=== PATIENT | male | born 1965 | race Caucasian/White ===

== ENCOUNTER 2017-10-17 08:25 | Inpatient (IN) | payer MEDICARE ==
[2017-10-17] MEDS ORDERED: PIPERACILLIN/TAZOBACTAM 3.375 GM VIAL IV ONE (09:46)
[2017-10-17] MEDS ORDERED: VANCOMYCIN HCL INJ 1000 MG VIAL IV ONE (09:46)
[2017-10-17 10:34] LABS: ABSOLUTE BASOPHILS # (AUTO) 0.1 10^3/uL (0.0-0.2); ABSOLUTE LYMPHOCYTES (AUTO) 0.8 10^3/uL (0.5-4.7); ABSOLUTE MONOCYTES (AUTO) 0.7 10^3/uL (0.1-1.4); ABSOLUTE NEUT (AUTO) 6.5 10^3/uL (1.7-8.2); BASOPHILS % (AUTO) 0.7 % (0-2); EOSINOPHILS % (AUTO) 0.5 % (0-6); HEMATOCRIT 47.7 % (37.9-51.0); HEMOGLOBIN 16.4 g/dL (13.5-17.0); LYMPHOCYTES % (AUTO) 10.3 % (13-45); MEAN CORPUSCULAR HGB CONC 34.5 g/dL (32.0-36.0); MEAN CORPUSCULAR VOLUME 96 fl (80-97); MONOCYTES % (AUTO) 8.2 % (3-13); RED BLOOD COUNT 4.98 10^6/uL (4.35-5.55); RED CELL DISTRIBUTION WIDTH 14.2 % (11.5-14.0); SEGMENTED NEUTROPHILS % (AUTO) 80.3 % (42-78); TOTAL CELLS COUNTED % (AUTO) 100 %; WHITE BLOOD COUNT 8.1 10^3/uL (4.0-10.5)
--- NOTE | 2017-10-17 10:41 | ER Document Report ---
ED General - General Chief Complaint: Leg Pain Stated Complaint: POSSIBLE SPIDER BITE Time Seen by Provider: 10/17/17 08:49 Mode of Arrival: Ambulatory Information source: Patient Notes: 52-year-old male history of hepatitis presents with complaints of left leg pain redness over the past 2 days. Patient notes he was working outside is not sure if he was bit by something. Patient denies any fevers or chills he does not admit to a 20 pound weight gain and some shortness of breath as well with a history of chronic liver disease TRAVEL OUTSIDE OF THE [place] IN LAST 30 DAYS: No - HPI Onset: Other Onset/Duration: Persistent Quality of pain: Achy Severity: Mild Pain Level: 1 Associated symptoms: Leg swelling, Shortness of breath Exacerbated by: Walking Relieved by: Denies Similar symptoms previously: No Recently seen / treated by doctor: No - Related Data Allergies/Adverse Reactions: No Known Allergies Allergy (Verified 10/17/17 08:26) Past Medical History - Social History Smoking Status: Current Every Day Smoker Cigarette use (# per day): Yes Chew tobacco use (# tins/day): No Smoking Education Provided: No Frequency of alcohol use: None Drug Abuse: None Family History: Reviewed & Not Pertinent Patient has suicidal ideation: No Patient has homicidal ideation: No Renal/ Medical History: Denies: Hx Peritoneal Dialysis - Immunizations Hx Diphtheria, Pertussis, Tetanus Vaccination: Yes Review of Systems - Review of Systems Notes: REVIEW OF SYSTEMS: CONSTITUTIONAL : Denies fever, chills, or sweats. Denies recent illness. EENT: Denies eye, ear, throat, or mouth pain or symptoms. Denies nasal or sinus congestion or discharge. Denies throat, tongue, or mouth swelling or difficulty swallowing. CARDIOVASCULAR: Denies chest pain. Denies palpitations or racing or irregular heart beat. Denies ankle edema. RESPIRATORY: Shortness of breath GASTROINTESTINAL: Abdominal swelling GENITOURINARY: Denies difficulty urinating, painful urination, burning, frequency, blood in urine, or discharge. MUSCULOSKELETAL: Denies back or neck pain or stiffness. Denies joint pain or swelling. SKIN: Rash of left leg HEMATOLOGIC : Denies easy bruising or bleeding. LYMPHATIC: Denies swollen, enlarged glands. NEUROLOGICAL: Denies confusion or altered mental status. Denies passing out or loss of consciousness. Denies dizziness or lightheadedness. Denies headache. Denies weakness or paralysis or loss of use of either side. Denies problems with gait or speech. Denies sensory loss, numbness, or tingling. Denies seizures. PSYCHIATRIC: Denies anxiety or stress. Denies depression, suicidal ideation, or homicidal ideation. ALL OTHER SYSTEMS REVIEWED AND NEGATIVE. PHYSICAL EXAMINATION: GENERAL: Well-appearing, well-nourished and in no acute distress. HEAD: Atraumatic, normocephalic. EYES: Pupils equal round and reactive to light, extraocular movements intact, conjunctiva are normal. ENT: Nares patent, oropharynx clear without exudates. Moist mucous membranes. NECK: Normal range of motion, supple without lymphadenopathy LUNGS: Breath sounds clear to auscultation bilaterally and equal. No wheezes rales or rhonchi. HEART: Regular rate and rhythm without murmurs ABDOMEN: Abdomen is distended obvious fluid level Musculoskeletal: Normal range of motion, no pitting or edema. No cyanosis. NEUROLOGICAL: Cranial nerves grossly intact. Normal speech, normal gait. Normal sensory, motor exams PSYCH: Normal mood, normal affect. SKIN: Large area of cellulitic component mid ott to mid thigh chronic venous stasis changes of bilateral lower extremities Dictation was performed using [employer] voice recognition software Physical Exam - Vital signs Vitals: Temp Pulse Resp BP Pulse Ox 98.1 F 78 17 129/65 H 95 10/17/17 08:31 10/17/17 08:31 10/17/17 08:31 10/17/17 08:31 10/17/17 08:31 Course - Re-evaluation Re-evalutation: 10/17/17 15:31 Patient appears to have 2 separate concerns, the initial is for cellulitis, patient will be surrounding for this, the secondary concern is for fluid overload secondary to ascites and liver disease, patient will be set up for a paracentesis Patient will be admitted to hospital service - Vital Signs Vital signs: Temp Pulse Resp BP Pulse Ox 97.7 F 70 17 134/73 H 94 10/17/17 14:22 10/17/17 14:36 10/17/17 14:36 10/17/17 14:22 10/17/17 14:36 - Laboratory Result Diagrams: 10/17/17 10:12 10/17/17 10:12 Laboratory results interpreted by me: 10/17/17 10/17/17 10/17/17 10:12 10:12 10:12 RDW 14.2 H Plt Count 51 L Seg Neutrophils % 80.3 H Lymphocytes % 10.3 L PT 17.2 H Glucose 136 H Total Bilirubin 4.1 H Direct Bilirubin 1.4 H AST 152 H ALT 127 H Alkaline Phosphatase 191 H Albumin 2.9 L - Diagnostic Test Radiology reviewed: Image reviewed - Ascites noted, Reports reviewed Discharge - Discharge Clinical Impression: Cellulitis Qualifiers: Site of cellulitis: extremity Site of cellulitis of extremity: lower extremity Laterality: left Qualified Code(s): L03.116 - Cellulitis of left lower limb Ascites Qualifiers: Ascites type: due to alcoholic cirrhosis Qualified Code(s): K70.31 - Alcoholic cirrhosis of liver with ascites Condition: Stable Disposition: ADMITTED OBSERVATION Admitting Provider: Hospitalist Unit Admitted: Telemetry
[2017-10-17 10:49] LABS: ALANINE AMINOTRANSFERASE 127 U/L (21-72); ALBUMIN 2.9 g/dL (3.5-5.0); ALKALINE PHOSPHATASE 191 U/L (38-126); ANION GAP 8 (5-19); ASPARTATE AMINO TRANSFERASE 152 U/L (17-59); BILIRUBIN,DIRECT 1.4 mg/dL (0.0-0.4); BILIRUBIN,TOTAL 4.1 mg/dL (0.2-1.3); BLOOD UREA NITROGEN 15 mg/dL (7-20); CALCIUM 9.1 mg/dL (8.4-10.2); CARBON DIOXIDE 30 mmol/L (22-30); CHLORIDE 103 mmol/L (98-107); GLUCOSE 136 mg/dL (75-110); POTASSIUM 4.7 mmol/L (3.6-5.0); SODIUM 141.4 mmol/L (137-145); TOTAL PROTEIN 7.1 g/dL (6.3-8.2)
[2017-10-17 11:01] LABS: PLATELET COUNT 51 10^3/uL (150-450)
[2017-10-17 12:19] LABS: INTERNATIONAL RATION (INR) 1.34; PROTHROMBIN TIME 17.2 SEC (11.4-15.4)
[2017-10-17] MEDS ORDERED: ONDANSETRON HCL INJ/PF 4 MG/2 ML SDV IV PRN (12:23)
--- NOTE | 2017-10-17 14:05 | RADIOLOGY REPORT (SQ) ---
EXAM DESCRIPTION: U/S ABDOMEN LIMITED W/O DOP COMPLETED DATE/TIME: 10/17/2017 1:40 pm REASON FOR STUDY: abd distension D69.6 THROMBOCYTOPENIA, UNSPECIFIED COMPARISON: None. TECHNIQUE: Limited Static and real time solomon scale imaging performed of the 4 abdominal quadrants an d the midline. LIMITATIONS: None. FINDINGS: ASCITES: None identified. OTHER: No other significant finding. IMPRESSION: NO EVIDENCE FOR ASCITES. TECHNICAL DOCUMENTATION: JOB ID: [id number] [employer]- All Rights Reserved Reading location - IP/workstation name: Unknown
--- NOTE | 2017-10-17 14:51 | PDOC H&P ---
History of Present Illness Admission Date/PCP: 10/17/17 11:19 Patient complains of: Leg pain and swelling History of Present Illness: DONTAE RODRIGUEZ is a 52 year old male with history of hepatitis presents with complaints of left leg pain redness over the past 2 days. Patient notes he was working outside is not sure if he was bit by something. Patient denies any fevers or chills he does admit to a 20 pound weight gain and some shortness of breath as well with a history of chronic liver disease Past Medical History GI Medical History: Reports: Cirrhosis, Hepatitis Social History Information Source: Patient Smoking Status: Current Every Day Smoker Frequency of Alcohol Use: None - Advance Directive Resuscitation Status: Full Code Family History Family History: Reviewed & Not Pertinent Parental Family History Reviewed: Yes Children Family History Reviewed: Unknown Sibling(s) Family History Reviewed.: Unknown Medication/Allergy Home Medications: Furosemide [Lasix 20 mg Tablet] 60 mg PO DAILY 10/17/17 Lactulose [Cephulac Syrup 20 gm/30 ml Udcup] 30 ml PO DAILY 10/17/17 Methadone HCl 10 mg PO Q6HP PRN 10/17/17 Oxycodone HCl/Acetaminophen [Percocet 5-325 mg Tablet] 1 tab PO Q6HP PRN Spironolactone 150 tab PO DAILY 10/17/17 Allergies/Adverse Reactions: No Known Allergies Allergy (Verified 10/17/17 08:26) Review of Systems Constitutional: PRESENT: weight gain Eyes: ABSENT: visual disturbances Cardiovascular: ABSENT: chest pain, dyspnea on exertion, edema, orthropnea, palpitations Respiratory: ABSENT: cough, hemoptysis Gastrointestinal: PRESENT: abdominal pain. ABSENT: diarrhea, hematemesis, melena, nausea, vomiting Genitourinary: ABSENT: dysuria, hematuria Musculoskeletal: ABSENT: joint swelling Neurological: ABSENT: abnormal gait, abnormal speech, confusion, dizziness, focal weakness, syncope Psychiatric: PRESENT: as per HPI Physical Exam Vital Signs: Temp Pulse Resp BP Pulse Ox 97.7 F 70 17 134/73 H 94 10/17/17 14:22 10/17/17 14:36 10/17/17 14:36 10/17/17 14:22 10/17/17 14:36 Intake & Output 10/16/17 10/17/17 10/18/17 06:59 06:59 06:59 Weight 108.862 kg General appearance: PRESENT: no acute distress, cooperative Head exam: PRESENT: atraumatic Ear exam: PRESENT: normal external ear exam Neck exam: ABSENT: carotid bruit, JVD, lymphadenopathy, thyromegaly Respiratory exam: PRESENT: clear to auscultation rober. ABSENT: rales, rhonchi, wheezes Pulses: PRESENT: normal dorsalis pedis pul GI/Abdominal exam: PRESENT: ascites, normal bowel sounds, tenderness, other Rectal exam: PRESENT: deferred Extremities exam: PRESENT: tenderness, +1 edema Musculoskeletal exam: PRESENT: ambulatory Neurological exam: PRESENT: alert, awake, oriented to person, oriented to place , oriented to time, oriented to situation Skin exam: PRESENT: rash - Left lower extremity extending to left hip Results Laboratory Results: Laboratory 10/17/17 10/17/17 10/17/17 10:12 10:12 10:12 WBC 8.1 RBC 4.98 Hgb 16.4 Hct 47.7 MCV 96 MCH 33.0 MCHC 34.5 RDW 14.2 H Plt Count 51 L Seg Neutrophils % 80.3 H Lymphocytes % 10.3 L Monocytes % 8.2 Eosinophils % 0.5 Basophils % 0.7 Absolute Neutrophils 6.5 Absolute Lymphocytes 0.8 Absolute Monocytes 0.7 Absolute Eosinophils 0.0 Absolute Basophils 0.1 PT INR Sodium 141.4 Potassium 4.7 Chloride 103 Carbon Dioxide 30 Anion Gap 8 BUN 15 Creatinine 0.73 Est GFR ( Amer) > 60 Est GFR (Non-Af Amer) > 60 Glucose 136 H Calcium 9.1 Total Bilirubin 4.1 H Direct Bilirubin 1.4 H Neonat Total Bilirubin Not Reportable Neonat Direct Bilirubin Not Reportable Neonat Indirect Bili Not Reportable AST 152 H ALT 127 H Alkaline Phosphatase 191 H NT-Pro-B Natriuret Pep 64 Total Protein 7.1 Albumin 2.9 L 10/17/17 10:12 WBC RBC Hgb Hct MCV MCH MCHC RDW Plt Count Seg Neutrophils % Lymphocytes % Monocytes % Eosinophils % Basophils % Absolute Neutrophils Absolute Lymphocytes Absolute Monocytes Absolute Eosinophils Absolute Basophils PT 17.2 H INR 1.34 Sodium Potassium Chloride Carbon Dioxide Anion Gap BUN Creatinine Est GFR ( Amer) Est GFR (Non-Af Amer) Glucose Calcium Total Bilirubin Direct Bilirubin Neonat Total Bilirubin Neonat Direct Bilirubin Neonat Indirect Bili AST ALT Alkaline Phosphatase NT-Pro-B Natriuret Pep Total Protein Albumin Impressions: Abdomen Ultrasound 10/17/17 11:58 IMPRESSION: NO EVIDENCE FOR ASCITES. Assessment & Plan - Diagnosis (1) Cellulitis Qualifiers: Site of cellulitis: extremity Site of cellulitis of extremity: lower extremity Laterality: left Qualified Code(s): L03.116 - Cellulitis of left lower limb Plan: Placed on empiric antibiotics. Will obtain Doppler sonogram to rule out underlying DVT. Patient has a rash overlying this area of cellulitis and I am not too sure what the etiology is but will keep a close eye on it and adjust antibiotics as needed. (2) Cirrhosis of liver Qualifiers: Ascites presence: without ascites Is this a current diagnosis for this admission?: Yes Plan: Patient claims to have a shunt in place and c/o increased abdominal swelling however abdominal sono shows no ascites and no mention of any hardware. His labs do support liver disease with thrombocytopenia and abnormal LFT's. He says he just moved to the area and has not seen a physician in about 2 years as he had been doing well - Time Time Spent: 50 to 70 Minutes Medications reviewed and adjusted accordingly: Yes Anticipated discharge: Home Within: within 72 hours - Inpatient Certification Based on my medical assessment, after consideration of the patient's comorbidities, presenting symptoms, or acuity I expect that the services needed warrant INPATIENT care.: Yes Medical Necessity: Need for IV Antibiotics, Risk of Complication if Not Cared For in Hospital
[2017-10-17] MEDS: ERTAPENEM SODIUM 1 GM in NORMAL SALINE 50 ML IV SCH (17:10)
[2017-10-17] MEDS: OXYCODONE-ACETAMINOPHEN 5-325 MG TABLET PO PRN ×2 (17:12→23:07)
[2017-10-17] MEDS: METHADONE HCL 10 MG TABLET PO PRN ×2 (17:12→23:07)
[2017-10-17] MEDS: FAMOTIDINE 20 MG TABLET PO SCH (23:06)
[2017-10-18] MEDS: OXYCODONE-ACETAMINOPHEN 5-325 MG TABLET PO PRN ×3 (06:02→18:09)
[2017-10-18] MEDS: METHADONE HCL 10 MG TABLET PO PRN ×3 (06:02→18:09)
[2017-10-18 06:22] LABS: ABSOLUTE BASOPHILS # (AUTO) 0.1 10^3/uL (0.0-0.2); ABSOLUTE EOSINOPHILS # (AUTO) 0.2 10^3/uL (0.0-0.6); ABSOLUTE MONOCYTES (AUTO) 0.5 10^3/uL (0.1-1.4); ABSOLUTE NEUT (AUTO) 2.6 10^3/uL (1.7-8.2); BASOPHILS % (AUTO) 1.2 % (0-2); EOSINOPHILS % (AUTO) 4.7 % (0-6); HEMATOCRIT 43.9 % (37.9-51.0); HEMOGLOBIN 14.9 g/dL (13.5-17.0); LYMPHOCYTES % (AUTO) 24.1 % (13-45); MEAN CORPUSCULAR HEMOGLOBIN 32.7 pg (27.0-33.4); MEAN CORPUSCULAR HGB CONC 33.9 g/dL (32.0-36.0); MEAN CORPUSCULAR VOLUME 97 fl (80-97); MONOCYTES % (AUTO) 10.9 % (3-13); RED BLOOD COUNT 4.55 10^6/uL (4.35-5.55); RED CELL DISTRIBUTION WIDTH 14.2 % (11.5-14.0); SEGMENTED NEUTROPHILS % (AUTO) 59.1 % (42-78); TOTAL CELLS COUNTED % (AUTO) 100 %; WHITE BLOOD COUNT 4.3 10^3/uL (4.0-10.5)
[2017-10-18 06:39] LABS: ALANINE AMINOTRANSFERASE 106 U/L (21-72); ALBUMIN 2.4 g/dL (3.5-5.0); ALKALINE PHOSPHATASE 186 U/L (38-126); ANION GAP 6 (5-19); ASPARTATE AMINO TRANSFERASE 125 U/L (17-59); BILIRUBIN,TOTAL 1.8 mg/dL (0.2-1.3); BLOOD UREA NITROGEN 18 mg/dL (7-20); CALCIUM 8.4 mg/dL (8.4-10.2); CARBON DIOXIDE 28 mmol/L (22-30); CHLORIDE 107 mmol/L (98-107); GLUCOSE 162 mg/dL (75-110); PHOSPHORUS 3.8 mg/dL (2.5-4.5); POTASSIUM 4.1 mmol/L (3.6-5.0); SODIUM 141.4 mmol/L (137-145)
[2017-10-18 07:11] LABS: PLATELET COUNT 41 10^3/uL (150-450)
[2017-10-18] MEDS: SPIRONOLACTONE 25 MG TABLET PO SCH (09:59)
[2017-10-18] MEDS: FAMOTIDINE 20 MG TABLET PO SCH ×2 (09:59→21:34)
[2017-10-18] MEDS: FUROSEMIDE 20 MG TABLET PO SCH (09:59)
[2017-10-18] MEDS ORDERED: SPIRONOLACTONE PO SCH (10:00)
[2017-10-18] MEDS ORDERED: LACTULOSE SYRUP 20 GM/30 ML UDCUP PO SCH (10:00)
[2017-10-18] MEDS: DOCUSATE SODIUM 100 MG CAPSULE PO SCH (10:01)
[2017-10-18] MEDS: IPRATROPIUM/ALBUTEROL 0.5-2.5 MG/3 ML AMPUL NEB PRN (13:07)
--- NOTE | 2017-10-18 16:03 | PDOC PROGRESS REPORT ---
Subjective Progress Note for:: 10/18/17 Subjective:: Patient admitted with left leg pain and swelling likely secondary to cellulitis. He reports feeling better today. He denies any bleeding. Reason For Visit: CELLULITIS, LIVER CIRRHOSIS Physical Exam Vital Signs: Temp Pulse Resp BP Pulse Ox 97.8 F 67 16 124/56 L 91 L 10/18/17 11:27 10/18/17 13:07 10/18/17 13:07 10/18/17 11:27 10/18/17 13:07 Intake & Output 10/17/17 10/18/17 10/19/17 06:59 06:59 06:59 Intake Total 775 300 Balance 775 300 Weight 118.3 kg General appearance: PRESENT: no acute distress, other - Older looking than stated age Head exam: PRESENT: atraumatic Eye exam: PRESENT: conjunctiva pink, PERRLA. ABSENT: scleral icterus Ear exam: PRESENT: normal external ear exam Mouth exam: PRESENT: moist, tongue midline Neck exam: ABSENT: carotid bruit, JVD, lymphadenopathy, thyromegaly Respiratory exam: PRESENT: clear to auscultation rober. ABSENT: rales, rhonchi, wheezes Cardiovascular exam: PRESENT: RRR. ABSENT: diastolic murmur, rubs, systolic murmur Pulses: PRESENT: normal dorsalis pedis pul Vascular exam: PRESENT: normal capillary refill GI/Abdominal exam: PRESENT: ascites, normal bowel sounds, soft, other - umblical hernia. ABSENT: distended, mass, organolmegaly, rebound, tenderness Rectal exam: PRESENT: deferred Extremities exam: PRESENT: full ROM. ABSENT: calf tenderness, clubbing, pedal edema Neurological exam: PRESENT: alert, awake, oriented to person, oriented to place , oriented to time, oriented to situation, CN II-XII grossly intact. ABSENT: motor sensory deficit Psychiatric exam: PRESENT: appropriate affect, normal mood. ABSENT: homicidal ideation, suicidal ideation Skin exam: PRESENT: dry, intact, warm. ABSENT: cyanosis, rash Results Laboratory Results: 10/18/17 06:03 10/18/17 06:03 10/18/17 10/18/17 10/18/17 06:03 06:03 06:03 WBC 4.3 RBC 4.55 Hgb 14.9 Hct 43.9 MCV 97 MCH 32.7 MCHC 33.9 RDW 14.2 H Plt Count 41 L Seg Neutrophils % 59.1 Lymphocytes % 24.1 Monocytes % 10.9 Eosinophils % 4.7 Basophils % 1.2 Absolute Neutrophils 2.6 Absolute Lymphocytes 1.0 Absolute Monocytes 0.5 Absolute Eosinophils 0.2 Absolute Basophils 0.1 Sodium 141.4 Potassium 4.1 Chloride 107 Carbon Dioxide 28 Anion Gap 6 BUN 18 Creatinine 0.69 Est GFR ( Amer) > 60 Est GFR (Non-Af Amer) > 60 Glucose 162 H Calcium 8.4 Phosphorus 3.8 Magnesium 1.8 Total Bilirubin 1.8 H AST 125 H ALT 106 H Alkaline Phosphatase 186 H Ammonia 91.9 H Total Protein 6.0 L Albumin 2.4 L Impressions: Abdomen Ultrasound 10/17/17 11:58 IMPRESSION: NO EVIDENCE FOR ASCITES. Assessment & Plan - Diagnosis (1) Cellulitis Qualifiers: Site of cellulitis: extremity Site of cellulitis of extremity: lower extremity Laterality: left Qualified Code(s): L03.116 - Cellulitis of left lower limb Is this a current diagnosis for this admission?: Yes Plan: We will continue with Etrapenem and adjust as needed. He does appear to be improved since yesterday (2) Cirrhosis of liver Qualifiers: Ascites presence: without ascites Is this a current diagnosis for this admission?: Yes Plan: There was no ascites on sonogram so no paracentesis was done (3) Thrombocytopenia Is this a current diagnosis for this admission?: Yes Plan: Secondary to liver disease. There is no evidence of any bleeding. We will continue to monitor - Time Time Spent with patient: 15-24 minutes Medications reviewed and adjusted accordingly: Yes Anticipated discharge: Home Within: within 72 hours - Inpatient Certification Based on my medical assessment, after consideration of the patient's comorbidities, presenting symptoms, or acuity I expect that the services needed warrant INPATIENT care.: Yes Medical Necessity: Need for IV Antibiotics, Risk of Diagnosis Which Will Require Inpatient Eval/Care/Monitoring
[2017-10-18] MEDS: ERTAPENEM SODIUM 1 GM in NORMAL SALINE 50 ML IV SCH (18:09)
[2017-10-19] MEDS: OXYCODONE-ACETAMINOPHEN 5-325 MG TABLET PO PRN ×4 (00:47→21:31)
[2017-10-19] MEDS: METHADONE HCL 10 MG TABLET PO PRN ×4 (00:47→21:31)
[2017-10-19] MEDS: IPRATROPIUM/ALBUTEROL 0.5-2.5 MG/3 ML AMPUL NEB PRN ×2 (07:52→18:07)
[2017-10-19] MEDS: FAMOTIDINE 20 MG TABLET PO SCH ×2 (09:51→21:31)
[2017-10-19] MEDS: FUROSEMIDE 20 MG TABLET PO SCH (09:52)
[2017-10-19] MEDS: DOCUSATE SODIUM 100 MG CAPSULE PO SCH (09:53)
[2017-10-19] MEDS: SPIRONOLACTONE 25 MG TABLET PO SCH (10:17)
[2017-10-19] MEDS: LACTULOSE SYRUP 20 GM/30 ML UDCUP PO SCH ×2 (13:20→21:32)
--- NOTE | 2017-10-19 16:15 | PDOC PROGRESS REPORT ---
Subjective Progress Note for:: 10/19/17 Subjective:: Patient admitted with left leg pain and swelling likely secondary to cellulitis. He reports feeling better today. He denies any bleeding. Reason For Visit: CELLULITIS, LIVER CIRRHOSIS Physical Exam Vital Signs: Temp Pulse Resp BP Pulse Ox 98.2 F 86 18 124/53 L 96 10/19/17 12:00 10/19/17 12:00 10/19/17 12:00 10/19/17 12:00 10/19/17 12:00 Intake & Output 10/18/17 10/19/17 10/20/17 06:59 06:59 06:59 Intake Total 775 682 Balance 775 682 Weight 118.3 kg General appearance: PRESENT: no acute distress, well-developed, well-nourished Head exam: PRESENT: atraumatic, normocephalic Eye exam: PRESENT: conjunctiva pink, PERRLA. ABSENT: scleral icterus Ear exam: PRESENT: normal external ear exam Mouth exam: PRESENT: moist, tongue midline Neck exam: ABSENT: carotid bruit, JVD, lymphadenopathy, thyromegaly Respiratory exam: PRESENT: clear to auscultation rober. ABSENT: rales, rhonchi, wheezes Cardiovascular exam: PRESENT: RRR. ABSENT: diastolic murmur, rubs, systolic murmur Pulses: PRESENT: normal dorsalis pedis pul Vascular exam: PRESENT: normal capillary refill GI/Abdominal exam: PRESENT: normal bowel sounds, soft. ABSENT: distended, guarding, mass, organolmegaly, rebound, tenderness Rectal exam: PRESENT: deferred Extremities exam: PRESENT: full ROM. ABSENT: calf tenderness, clubbing, pedal edema Musculoskeletal exam: PRESENT: ambulatory, deformity Neurological exam: PRESENT: alert, awake, oriented to person, oriented to place , oriented to time, oriented to situation, CN II-XII grossly intact. ABSENT: motor sensory deficit Psychiatric exam: PRESENT: appropriate affect, normal mood. ABSENT: homicidal ideation, suicidal ideation Skin exam: PRESENT: dry, erythema - resolving LLE, intact, rash, warm. ABSENT: cyanosis Results Laboratory Results: 10/18/17 06:03 10/18/17 06:03 Impressions: Abdomen Ultrasound 10/17/17 11:58 IMPRESSION: NO EVIDENCE FOR ASCITES. Assessment & Plan - Diagnosis (1) Cellulitis Qualifiers: Site of cellulitis: extremity Site of cellulitis of extremity: lower extremity Laterality: left Qualified Code(s): L03.116 - Cellulitis of left lower limb Is this a current diagnosis for this admission?: Yes Plan: We will continue with Etrapenem and adjust as needed. Cellulitis improving (2) Cirrhosis of liver Qualifiers: Ascites presence: without ascites Is this a current diagnosis for this admission?: Yes Plan: There was no ascites on sonogram so no paracentesis was done Ammonia level elevated so I have increased his lactulose dose however there is no altered mental status or encephalopathy noted (3) Thrombocytopenia Is this a current diagnosis for this admission?: Yes Plan: Secondary to liver disease. There is no evidence of any bleeding. Follow up labs in am - Time Time Spent with patient: 15-24 minutes Medications reviewed and adjusted accordingly: Yes Anticipated discharge: Home Within: within 48 hours - Inpatient Certification Based on my medical assessment, after consideration of the patient's comorbidities, presenting symptoms, or acuity I expect that the services needed warrant INPATIENT care.: Yes Medical Necessity: Need Close Monitoring Due to Risk of Patient Decompensation, Need for IV Antibiotics, Risk of Complication if Not Cared For in Hospital
--- NOTE | 2017-10-19 17:12 | XCELERA REPORT ---
[address] [address] Lower Extremity Venous Evaluation Name: DONTAE RODRIGUEZ Age: 52 yrs Gender: Male : 1965 Patient Status: Inpatient Patient Location: [address] [place] [address] Study Date: 10/18/2017 07:10 PM Procedure: Color flow and duplex imaging of the veins of the left lower extremity as well as the right Common Femoral vein. Reason For Study: LLE edema, redness Ordering Physician: SANDY SOW Performed By: Tuyet Valverde Right Sided Venous Evaluation The right common femoral vein is fully compressible. Spontaneous and phasic flow is present in the right common femoral vein. Left Sided Venous Evaluation Normal vessel filling wall to wall, compression and augmentation as well as Colour flow down to the infrageniculate veins. Interpretation Summary No duplex evidence of DVT or obstruction in the left lower extremity nor in the right Common Femoral vein. : SANDY SOW > Remy Priest
[2017-10-19] MEDS: ERTAPENEM SODIUM 1 GM in NORMAL SALINE 50 ML IV SCH (17:36)
[2017-10-20] MEDS: OXYCODONE-ACETAMINOPHEN 5-325 MG TABLET PO PRN ×2 (05:50→12:03)
[2017-10-20] MEDS: METHADONE HCL 10 MG TABLET PO PRN ×2 (05:50→12:03)
[2017-10-20] MEDS: LACTULOSE SYRUP 20 GM/30 ML UDCUP PO SCH (05:51)
[2017-10-20 07:28] LABS: ALANINE AMINOTRANSFERASE 131 U/L (21-72); ALBUMIN 2.8 g/dL (3.5-5.0); ALKALINE PHOSPHATASE 287 U/L (38-126); ANION GAP 10 (5-19); ASPARTATE AMINO TRANSFERASE 181 U/L (17-59); BILIRUBIN,DIRECT 0.9 mg/dL (0.0-0.4); BILIRUBIN,TOTAL 2.2 mg/dL (0.2-1.3); BLOOD UREA NITROGEN 15 mg/dL (7-20); CALCIUM 8.5 mg/dL (8.4-10.2); CARBON DIOXIDE 31 mmol/L (22-30); CHLORIDE 99 mmol/L (98-107); GLUCOSE 138 mg/dL (75-110); HEMATOCRIT 46.1 % (37.9-51.0); HEMOGLOBIN 15.8 g/dL (13.5-17.0); MEAN CORPUSCULAR HEMOGLOBIN 32.8 pg (27.0-33.4); MEAN CORPUSCULAR HGB CONC 34.3 g/dL (32.0-36.0); MEAN CORPUSCULAR VOLUME 96 fl (80-97); POTASSIUM 4.1 mmol/L (3.6-5.0); RED BLOOD COUNT 4.81 10^6/uL (4.35-5.55); RED CELL DISTRIBUTION WIDTH 14.3 % (11.5-14.0); SODIUM 140.1 mmol/L (137-145); TOTAL PROTEIN 6.7 g/dL (6.3-8.2); WHITE BLOOD COUNT 4.7 10^3/uL (4.0-10.5)
[2017-10-20 08:01] LABS: PLATELET COUNT 49 10^3/uL (150-450)
[2017-10-20] MEDS: SPIRONOLACTONE 25 MG TABLET PO SCH (09:30)
[2017-10-20] MEDS: FUROSEMIDE 20 MG TABLET PO SCH (09:32)
[2017-10-20] MEDS: FAMOTIDINE 20 MG TABLET PO SCH (09:32)
[2017-10-20] MEDS: IPRATROPIUM/ALBUTEROL 0.5-2.5 MG/3 ML AMPUL NEB PRN (10:25)
[2017-10-20] MEDS ORDERED: ONDANSETRON HCL INJ/PF 4 MG/2 ML SDV IV PRN (10:30)
[2017-10-20] MEDS: DOCUSATE SODIUM 100 MG CAPSULE PO SCH (12:04)
--- NOTE | 2017-10-20 12:26 | PDOC DISCHARGE SUMMARY ---
General - Admit/Disc Date/PCP Admission Date/Primary Care Provider: 10/17/17 11:19 Discharge Date: 10/20/17 - Discharge Diagnosis (1) Cellulitis Is this a current diagnosis for this admission?: Yes Summary: Improved with IV invanz for 3 days. Will start on oral antibiotics for a total of 10 days (2) Ascites Is this a current diagnosis for this admission?: Yes Summary: Small amount of ascites noted on CT scan. He will follow-up with his development architect as scheduled (3) Cirrhosis of liver Is this a current diagnosis for this admission?: Yes Summary: Continue home medications (4) Thrombocytopenia Is this a current diagnosis for this admission?: Yes Summary: Presently stable - Additional Information Resuscitation Status: Full Code Discharge Diet: Regular Discharge Activity: Activity As Tolerated, Balance Activity w/Rest, Keep Legs Elevated Prescriptions: Cephalexin Monohydrate [Keflex 500 mg Capsule] 500 mg PO QID #28 capsule Sulfamethoxazole/Trimethoprim [Bactrim Ds Tablet] 1 each PO BID #14 tablet Home Medications: Furosemide [Lasix 20 mg Tablet] 60 mg PO DAILY 10/17/17 Lactulose [Cephulac Syrup 20 gm/30 ml Udcup] 30 ml PO DAILY 10/17/17 Methadone HCl 10 mg PO Q6HP PRN 10/17/17 Oxycodone HCl/Acetaminophen [Percocet 5-325 mg Tablet] 1 tab PO Q6HP PRN Spironolactone 150 tab PO DAILY 10/17/17 Cephalexin Monohydrate [Keflex 500 mg Capsule] 500 mg PO QID #28 capsule Sulfamethoxazole/Trimethoprim [Bactrim Ds Tablet] 1 each PO BID #14 tablet 10/20 History of Present Illness Patient complains of: Left leg redness and swelling History of Present Illness: DONTAE RODRIGUEZ is a 52 year old maleTHOMAS with history of hepatitis presents with complaints of left leg pain redness over the past 2 days. Patient notes he was working outside is not sure if he was bit by something. Patient denies any fevers or chills he does admit to a 20 pound weight gain and some shortness of breath as well with a history of chronic liver disease Hospital Course Hospital Course: Patient was admitted to the hospitalist service on telemetry. He was started on IV Invanz after blood cultures 2 were started. He underwent venous duplex of both lower extremities which were negative for DVT. Abdominal ultrasound and CT showed chronic liver disease with small amount of ascites. He was aggressively diuresed with IV Lasix. Today he states his breathing is much improved. Redness of his leg is also resolving. He has a normal white count and no fever. Blood cultures 2 are negative. We will transition him to oral antibiotics and discharge him home. Physical Exam Vital Signs: Temp Pulse Resp BP Pulse Ox 98.8 F 81 19 119/53 L 91 L 10/20/17 11:19 10/20/17 11:19 10/20/17 11:19 10/20/17 11:19 10/20/17 11:19 Intake & Output 10/19/17 10/20/17 10/21/17 06:59 06:59 06:59 Intake Total 682 1588 Balance 682 1588 Weight 113.5 kg General appearance: PRESENT: no acute distress, obese, well-developed, well- nourished Head exam: PRESENT: atraumatic, normocephalic Eye exam: PRESENT: conjunctiva pink, EOMI, PERRLA. ABSENT: scleral icterus Ear exam: PRESENT: normal external ear exam Mouth exam: PRESENT: moist, tongue midline Neck exam: ABSENT: carotid bruit, JVD, lymphadenopathy, thyromegaly Respiratory exam: PRESENT: clear to auscultation rober. ABSENT: rales, rhonchi, wheezes Cardiovascular exam: PRESENT: RRR. ABSENT: diastolic murmur, rubs, systolic murmur Pulses: PRESENT: normal dorsalis pedis pul Vascular exam: PRESENT: normal capillary refill GI/Abdominal exam: PRESENT: normal bowel sounds, soft. ABSENT: distended, guarding, mass, organolmegaly, rebound, tenderness Rectal exam: PRESENT: deferred Extremities exam: PRESENT: full ROM. ABSENT: calf tenderness, clubbing, pedal edema Musculoskeletal exam: PRESENT: ambulatory, full ROM Neurological exam: PRESENT: alert, awake, oriented to person, oriented to place , oriented to time, oriented to situation, CN II-XII grossly intact. ABSENT: motor sensory deficit Skin exam: PRESENT: dry - Area of erythema along the left he has been marked. It is much decreased from admission. It is no longer warm to the touch., erythema, warm Results Laboratory Results: 10/20/17 06:50 10/20/17 06:50 10/20/17 10/20/17 10/20/17 06:50 06:50 06:50 WBC 4.7 RBC 4.81 Hgb 15.8 Hct 46.1 MCV 96 MCH 32.8 MCHC 34.3 RDW 14.3 H Plt Count 49 L Sodium 140.1 Potassium 4.1 Chloride 99 Carbon Dioxide 31 H Anion Gap 10 BUN 15 Creatinine 0.73 Est GFR ( Amer) > 60 Est GFR (Non-Af Amer) > 60 Glucose 138 H Calcium 8.5 Total Bilirubin 2.2 H AST 181 H ALT 131 H Alkaline Phosphatase 287 H Ammonia 71.3 H Total Protein 6.7 Albumin 2.8 L Impressions: Abdomen Ultrasound 10/17/17 11:58 IMPRESSION: NO EVIDENCE FOR ASCITES. Qualifiers - * PATIENT BEING DISCHARGED WITH ANY OF THE FOLLOWING DIAGNOSIS: No VTE patient discharged on overlapping Therapy?: Yes Plan Discharge Plan: Home with family Time Spent: Less than 30 Minutes
[2017-10-20 14:42] VITALS: BP 135/60
== END 2017-10-20 15:10 | disposition home or self-care (01) | DRG 603 ==
LOC: ER 08:25 → EH 11:19 → OBSVTOIN 11:19 → 4S 13:59 → 4W 10-20 08:07
PROVIDERS: ADMIT Internal Medicine; ATTEND Internal Medicine
PROC: 3E0F73Z Introduction of Anti-inflammatory into Respiratory Tract, Via Natural or Artificial Opening (ICD-10-PCS; principal; 2017-10-17)
DX: L03.116 Cellulitis of left lower limb (principal); I87.8 Other specified disorders of veins; K74.60 Unspecified cirrhosis of liver; F17.210 Nicotine dependence, cigarettes, uncomplicated; D69.59 Other secondary thrombocytopenia; Z79.899 Other long term (current) drug therapy
CPT/HCPCS: 36415; 76705; 80053; 82140; 83735; 83880; 84100; 85025; 85027; 85610; 87040; 93971; 96365; 96366; 96367; 99285; J1335; J2405; J2543; J3370; J7620

== ENCOUNTER 2018-04-18 10:01 | Emergency (ER) | payer MEDICARE ==
[2018-04-18] MEDS ORDERED: DIPH/PERTUSS(ACELL)/TETANUS VAC/PF 0.5 ML SYR (>=10YO) IM ONE (10:28)
--- NOTE | 2018-04-18 10:39 | ER Document Report ---
HPI - HPI Patient complains to provider of: fall Pain Level: 4 Context: Patient is a 52-year-old male who states 2 days ago he fell 10 feet from a ladder onto grass while hanging Amanda lights. States he initially presented to the emergency room but the wait was too long so he left. States he was feeling better until this morning when the swelling in his left hand increased. Patient states when he fell 2 days ago he did not pass out nor did he vomit. Patient has a significant history of spine surgeries. States he always has a minimal amount of pain in his back which he takes Percocet and methadone for. States no new pain in his head neck or back. Patient also has abrasion to the left face. Stated 2 days ago he did have an epistaxis which he was able to stop within 10 minutes. Past medical history: Fused spine cervical and lumbar, right hip replacement, hepatitis C Medications: Percocet, methadone Allergies: None Patient admits to cigarette smoking, denies EtOH use, denies illicit drug use. Past Medical History - General Information source: Patient - Social History Smoking Status: Current Every Day Smoker Lives with: Family Family History: Reviewed & Not Pertinent Renal/ Medical History: Denies: Hx Peritoneal Dialysis GI Medical History: Reports: Hx Cirrhosis, Hx Hepatitis Infectious Medical History: Reports: Hx Hepatitis - Immunizations Hx Diphtheria, Pertussis, Tetanus Vaccination: Yes Vertical Provider Document - CONSTITUTIONAL Agree With Documented VS: Yes Notes: GENERAL: Alert, interacts well. No acute distress. HEAD: Normocephalic, multiple abrasions noted under left cheek to left forehead , bridge of nose, no surrounding cellulitic tissue, no fluctuance or induration noted. EYES: Pupils equal, round, and reactive to light. Extraocular movements intact. ENT: Oral mucosa moist, tongue midline. Nares patent, no nasal septal hematoma, TM's intact, no hemotympanum NECK: Full range of motion. Supple. Trachea midline. LUNGS: Clear to auscultation bilaterally, no wheezes, rales, or rhonchi. No respiratory distress. HEART: Regular rate and rhythm. No murmur ABDOMEN: Soft, non-tender. Non-distended. Bowel sounds present in all 4 quadrants. EXTREMITIES: Moves all 4 extremities spontaneously. normal radial and dorsalis pedis pulses bilaterally. No cyanosis. Ecchymosis and swelling noted to left pinky anterior and posterior. Generalized swelling noted to entire left hand with ecchymosis noted on the palmar aspect near the pinky. Patient able to abduct and adduct all 5 fingers against resistance. Radial, ulnar, medial nerves intact. Capillary refill less than 2 seconds. BACK: no cervical, thoracic, lumbar midline tenderness. Stated he took his Percocet and methadone this morning. No saddle anesthesia, normal distal neurovascular exam. NEUROLOGICAL: Alert and oriented x3. Normal speech. cranial nerves II through XII grossly intact PSYCH: Normal affect, normal mood. SKIN: Warm, dry, normal turgor. - INFECTION CONTROL TRAVEL OUTSIDE OF THE [place] IN LAST 30 DAYS: No Course - Re-evaluation Re-evalutation: 04/18/18 11:58 X-ray reveals fracture, will apply ulnar gutter. Discussed need to follow-up with orthopedics. Also discussed applying bacitracin to facial abrasions. - Vital Signs Vital signs: Temp Pulse Resp BP Pulse Ox 97.9 F 73 18 150/46 H 94 04/18/18 10:10 04/18/18 10:10 04/18/18 10:10 04/18/18 10:10 04/18/18 10:10 Discharge - Discharge Clinical Impression: Fall Qualifiers: Encounter type: initial encounter Qualified Code(s): W19.XXXA - Unspecified fall, initial encounter Abrasion head Qualifiers: Encounter type: initial encounter Qualified Code(s): S00.91XA - Abrasion of unspecified part of head, initial encounter Fracture, finger Qualifiers: Encounter type: subsequent encounter Finger: little finger Fracture type: closed Phalanx: proximal Fracture alignment: nondisplaced Laterality: left Fracture healing: with routine healing Qualified Code(s): S62.647D - Nondisplaced fracture of proximal phalanx of left little finger, subsequent encounter for fracture with routine healing Condition: Stable Disposition: HOME, SELF-CARE Instructions: Abrasions of the Face ([facility]), Fractured Metacarpal ([facility]) Additional Instructions: You have been seen and treated in the emergency room for a fall. You have also broken your pinky on your left hand. Please keep splint in place until you follow-up with orthopedics. Phone numbers will be contained in this packet. Please take [id number] Tylenol Motrin for pain. Please place bacitracin on facial abrasions. Referrals: CONNER OSULLIVAN PA-C [Primary Care Provider] - Follow up as needed ANDRE RILEY MD [ACTIVE STAFF] - Follow up as needed
--- NOTE | 2018-04-18 11:48 | RADIOLOGY REPORT (SQ) ---
EXAM DESCRIPTION: HAND LEFT 3 VIEWS COMPLETED DATE/TIME: 04/18/2018 11:28 am REASON FOR STUDY: pain COMPARISON: None. NUMBER OF VIEWS: Three views left hand. LIMITATIONS: None. FINDINGS: Bones generally intact. Mild deformity of the base of the 5th metacarpal probably relates to remote previous fracture. Nondisplaced predominantly transverse fracture through the proximal sh aft of the proximal phalanx of the pinky finger also noted. This looks acute. Joints maintained. S oft tissue swelling along the dorsal hand. No radiopaque foreign body. OTHER: No other significant finding. IMPRESSION: Nondisplaced proximal phalanx pinky fracture. Additional evidence of old trauma. Soft tissue swelling. TECHNICAL DOCUMENTATION: JOB ID: [id number] Reading location - IP/workstation name: [email or web address]
[2018-04-18 12:33] VITALS: BP 148/50
== END 2018-04-18 12:30 | disposition home or self-care (01) ==
LOC: ER 10:01
DX: S62.647A Nondisplaced fracture of proximal phalanx of left little finger, initial encounter for closed fracture (principal); S00.91XA Abrasion of unspecified part of head, initial encounter; W11.XXXA Fall on and from ladder, initial encounter; F17.210 Nicotine dependence, cigarettes, uncomplicated; Y92.008 Other place in unspecified non-institutional (private) residence as the place of occurrence of the external cause; Z23 Encounter for immunization; Z96.641 Presence of right artificial hip joint
CPT/HCPCS: 90471; 90715; 99283

== ENCOUNTER 2018-07-06 16:41 | Inpatient (IN) | payer MEDICARE ==
[2018-07-06] MEDS ORDERED: LIDOCAINE 0.5% INJ-PF (5 MG/ML) 50 ML SDV NEB ONE (17:14)
[2018-07-06] MEDS ORDERED: ALBUTEROL SULFATE 0.083% NEB 2.5 MG/3 ML AMPUL NEB ONE (17:14)
[2018-07-06] MEDS ORDERED: IPRATROPIUM/ALBUTEROL 0.5-2.5 MG/3 ML AMPUL NEB ONE (17:14)
[2018-07-06] MEDS ORDERED: NORMAL SALINE 1000 ML 1,000 ML IV ONE (17:15)
[2018-07-06] MEDS ORDERED: METHYLPREDNISOLONE INJ 125 MG/2 ML SDV IV ONE (17:15)
--- NOTE | 2018-07-06 17:20 | ER Document Report ---
ED ENT - General Chief Complaint: Sore Throat Stated Complaint: DIFFICULTY BREATHING Time Seen by Provider: 07/06/18 17:10 Primary Care Provider: CONNER OSULLIVAN PA-C [Primary Care Provider] - Follow up as needed Mode of Arrival: Ambulatory Information source: Patient TRAVEL OUTSIDE OF THE [place] IN LAST 30 DAYS: No - HPI Patient complains to provider of: Throat problem Onset: Other - 4 days Onset/Duration: Persistent, Worse Quality of pain: Achy Severity: Severe Pain Level: 4 Associated symptoms: Congestion, Difficulty swallowing, Sore throat Similar symptoms previously: No Recently seen / treated by doctor: No Notes: Patient is a 53-year-old male presenting to the emergency room today for 4-day history of sore throat, with the sensation of razor blades in the back of his throat, difficulty swallowing, difficulty breathing, he is a smoker with history of COPD, states a pack of cigarettes usually last some 2-3 days, he denies any cough, no fever, no nausea or vomiting, he has not been seen by a primary care provider for the symptoms - Related Data Allergies/Adverse Reactions: No Known Allergies Allergy (Verified 04/18/18 10:02) Past Medical History - General Information source: Patient - Social History Smoking Status: Current Every Day Smoker Family History: Reviewed & Not Pertinent Renal/ Medical History: Denies: Hx Peritoneal Dialysis GI Medical History: Reports: Hx Cirrhosis, Hx Hepatitis Infectious Medical History: Reports: Hx Hepatitis - Immunizations Hx Diphtheria, Pertussis, Tetanus Vaccination: Yes Review of Systems - Review of Systems Constitutional: No symptoms reported EENT: See HPI Cardiovascular: No symptoms reported Respiratory: Short of breath Gastrointestinal: No symptoms reported Genitourinary: No symptoms reported Male Genitourinary: No symptoms reported Musculoskeletal: No symptoms reported Skin: No symptoms reported Hematologic/Lymphatic: No symptoms reported Neurological/Psychological: No symptoms reported -: Yes All other systems reviewed and negative Physical Exam - Vital signs Vitals: Temp Pulse BP Pulse Ox 97.8 F 88 169/58 H 75 L 07/06/18 16:53 07/06/18 16:53 07/06/18 16:53 07/06/18 16:53 Interpretation: Hypertensive, Hypoxic - General General appearance: Alert In distress: Moderate - HEENT Head: Normocephalic, Atraumatic Eyes: Normal Conjunctiva: Normal Extraocular movements intact: Yes Eyelashes: Normal Pupils: PERRL Pharynx: Erythema, Exudate, Tonsillar hypertrophy Neck: Lymphadenopathy - Respiratory Respiratory status: Labored Chest status: Nontender Breath sounds: Wheezing Chest palpation: Normal - Cardiovascular Rhythm: Regular Heart sounds: Normal auscultation Murmur: No - Abdominal Inspection: Normal, Obese Distension: No distension Bowel sounds: Normal Tenderness: Nontender Organomegaly: No organomegaly - Back Back: Normal, Nontender - Extremities General upper extremity: Normal inspection, Nontender, Normal color, Normal ROM, Normal temperature General lower extremity: Normal inspection, Nontender, Normal color, Normal ROM, Normal temperature, Normal weight bearing. No: Aamir's sign - Neurological Neuro grossly intact: Yes Cognition: Normal Orientation: AAOx4 [place] Coma Scale Eye Opening: Spontaneous [place] Coma Scale Verbal: Oriented [place] Coma Scale Motor: Obeys Commands Caity Coma Scale Total: 15 Speech: Normal Motor strength normal: LUE, RUE, LLE, RLE Sensory: Normal - Psychological Associated symptoms: Normal affect, Normal mood - Skin Skin Temperature: Warm Skin Moisture: Dry Skin Color: Normal Course - Re-evaluation Re-evalutation: 07/06/18 18:04 Patient resting comfortably, vital signs improved since receiving medications in the ER, labs are consistent with his history of cirrhosis, he does deny ever having alcohol in his life, states that he has had liver issues since he was a child, chest x-ray shows a moderate-sized left sided pleural effusion, I am concerned about possible infiltrate on top of this considering patient's symptoms, therefore antibiotics were administered and patient was discussed with the hospitalist service, Dr James, who accepts for further evaluation and treatment - Vital Signs Vital signs: Temp Pulse Resp BP Pulse Ox 97.8 F 88 31 H 134/82 H 88 L 07/06/18 16:53 07/06/18 16:53 07/06/18 18:01 07/06/18 18:01 07/06/18 18:01 - Laboratory Result Diagrams: 07/06/18 17:05 07/06/18 17:05 Laboratory results interpreted by me: 07/06/18 07/06/18 17:05 17:05 RDW 15.0 H Plt Count 37 L Lymphocytes % 11.5 L Carbon Dioxide 32 H Anion Gap 4 L Glucose 159 H Calcium 8.0 L Total Bilirubin 1.6 H Direct Bilirubin 0.8 H AST 126 H Alkaline Phosphatase 186 H Albumin 3.1 L - Diagnostic Test Radiology reviewed: Image reviewed, Reports reviewed Critical Care Note - Critical Care Note Total time excluding time spent on procedures (mins): 45 Comments: Patient hypoxic on arrival with tachypnea and respiratory distress, requiring breathing treatments, O2 via nasal cannula, close observation and admission Discharge - Discharge Clinical Impression: Pleural effusion, Pneumonia, Hypoxia, COPD exacerbation Condition: Fair Disposition: ADMITTED INPATIENT Admitting Provider: Hospitalist Unit Admitted: Telemetry Referrals: CONNER OSULLIVAN PA-C [Primary Care Provider] - Follow up as needed
[2018-07-06 17:33] LABS: ABSOLUTE LYMPHOCYTES (AUTO) 0.5 10^3/uL (0.5-4.7); ABSOLUTE MONOCYTES (AUTO) 0.4 10^3/uL (0.1-1.4); ABSOLUTE NEUT (AUTO) 3.2 10^3/uL (1.7-8.2); BASOPHILS % (AUTO) 0.3 % (0-2); EOSINOPHILS % (AUTO) 0.2 % (0-6); HEMOGLOBIN 16.6 g/dL (13.5-17.0); LYMPHOCYTES % (AUTO) 11.5 % (13-45); MEAN CORPUSCULAR HEMOGLOBIN 32.7 pg (27.0-33.4); MEAN CORPUSCULAR HGB CONC 34.6 g/dL (32.0-36.0); MEAN CORPUSCULAR VOLUME 95 fl (80-97); MONOCYTES % (AUTO) 10.1 % (3-13); RED BLOOD COUNT 5.07 10^6/uL (4.35-5.55); SEGMENTED NEUTROPHILS % (AUTO) 77.9 % (42-78); TOTAL CELLS COUNTED % (AUTO) 100 %; WHITE BLOOD COUNT 4.1 10^3/uL (4.0-10.5)
[2018-07-06 17:43] LABS: ALANINE AMINOTRANSFERASE 65 U/L (21-72); ALBUMIN 3.1 g/dL (3.5-5.0); ALKALINE PHOSPHATASE 186 U/L (38-126); ASPARTATE AMINO TRANSFERASE 126 U/L (17-59); BILIRUBIN,DIRECT 0.8 mg/dL (0.0-0.4); BILIRUBIN,TOTAL 1.6 mg/dL (0.2-1.3); BLOOD UREA NITROGEN 10 mg/dL (7-20); GLUCOSE 159 mg/dL (75-110); POTASSIUM 4.7 mmol/L (3.6-5.0); TOTAL PROTEIN 7.1 g/dL (6.3-8.2)
[2018-07-06 17:49] LABS: CARBON DIOXIDE 32 mmol/L (22-30); CHLORIDE 102 mmol/L (98-107); SODIUM 138.2 mmol/L (137-145)
[2018-07-06 17:50] LABS: ANION GAP 4 (5-19)
[2018-07-06 17:57] LABS: PLATELET COUNT 37 10^3/uL (150-450)
[2018-07-06] MEDS ORDERED: CEFTRIAXONE INJ 500 MG VIAL IV ONE (17:57)
[2018-07-06] MEDS ORDERED: AZITHROMYCIN INJ 500 MG VIAL IV ONE (17:57)
--- NOTE | 2018-07-06 18:18 | RADIOLOGY REPORT (SQ) ---
EXAM DESCRIPTION: CHEST SINGLE VIEW COMPLETED DATE/TIME: 07/06/2018 5:48 pm REASON FOR STUDY: cough, sob COMPARISON: None. EXAM PARAMETERS: NUMBER OF VIEWS: One view. TECHNIQUE: Single frontal radiographic view of the chest acquired. RADIATION DOSE: NA LIMITATIONS: None. FINDINGS: LUNGS AND PLEURA: Left pleural effusion. Apparent scarring in the left base. Considerabl e opacification the retrocardiac left base. MEDIASTINUM AND HILAR STRUCTURES: No masses. Contour normal. HEART AND VASCULAR STRUCTURES: Heart normal in size. Normal vasculature. BONES: No acute findings. HARDWARE: None in the chest. OTHER: No other significant finding. IMPRESSION: Left pleural effusion. Cannot exclude left lower lobe pneumonia. Cannot exclude scarri ng in the left base. TECHNICAL DOCUMENTATION: JOB ID: [id number] [employer]- All Rights Reserved Reading location - IP/workstation name: [email or web address]
[2018-07-06] MEDS ORDERED: LIDOCAINE 2% VISCOUS SOLN 20 ML UDCUP PO ONE (18:38)
[2018-07-06] MEDS ORDERED: MAG HYDROX/AL HYDROX/SIMETH SUSP 30 ML UDCUP PO ONE (18:38)
--- NOTE | 2018-07-06 18:44 | PDOC H&P ---
History of Present Illness Admission Date/PCP: CONNER OSULLIVAN PA-C History of Present Illness: DONTAE RODRIGUEZ is a 53 year old male past medical history of cirrhosis due to hepatitis C as a child, COPD, tobacco abuse, chronic opiate dependent due to and chronic pain due to multiple back surgery and right hip surgery Patient presented to ED complaining of sore throat, with the sensation of razor blades in the back of his throat, difficulty swallowing, difficulty breathing and retrosternal pleuritic chest pain associated dry cough and fever. He denies any recent sick contact, recent travel, or recent hospitalizations. In ED he was found to be saturating 75% on room air and tachypneic. A chest x- ray was done which showed left pleural effusion. Patient was started on empiric antibiotics, nebs and IV steroids. Hospital source consulted for management of left pleural effusion and hypoxia. Past Medical History Cardiac Medical History: Reports: None Pulmonary Medical History: Reports: Chronic Obstructive Pulmonary Disease (COPD) Endocrine Medical History: Reports: None GI Medical History: Reports: Cirrhosis, Hepatitis Past Surgical History Past Surgical History: Reports: Orthopedic Surgery - back Social History Smoking Status: Current Every Day Smoker Frequency of Alcohol Use: None Hx Recreational Drug Use: No Drugs: None Family History Family History: Reviewed & Not Pertinent Parental Family History Reviewed: Yes Children Family History Reviewed: Yes Sibling(s) Family History Reviewed.: Yes Medication/Allergy Home Medications: Furosemide [Lasix 20 mg Tablet] 60 mg PO DAILY 10/17/17 Lactulose [Cephulac Syrup 20 gm/30 ml Udcup] 30 ml PO DAILY 10/17/17 Methadone HCl 10 mg PO Q6HP PRN 10/17/17 Oxycodone HCl/Acetaminophen [Percocet 5-325 mg Tablet] 1 tab PO Q6HP PRN 10/17/17 Spironolactone 150 tab PO DAILY 10/17/17 Cephalexin Monohydrate [Keflex 500 mg Capsule] 500 mg PO QID #28 capsule 10/20/17 Sulfamethoxazole/Trimethoprim [Bactrim Ds Tablet] 1 each PO BID #14 tablet 10/20/17 Allergies/Adverse Reactions: No Known Allergies Allergy (Verified 04/18/18 10:02) Review of Systems Review of Systems: As per HPI. Physical Exam Vital Signs: Temp Pulse Resp BP Pulse Ox 97.8 F 88 31 H 134/82 H 88 L 07/06/18 16:53 07/06/18 16:53 07/06/18 18:01 07/06/18 18:01 07/06/18 18:01 Intake & Output 07/05/18 07/06/18 07/07/18 06:59 06:59 06:59 Weight 120.4 kg General appearance: PRESENT: no acute distress, well-developed, well-nourished Mouth exam: PRESENT: moist, tongue midline Throat exam: PRESENT: post pharyngeal erythema, other Neck exam: ABSENT: carotid bruit, JVD, lymphadenopathy, thyromegaly Respiratory exam: PRESENT: clear to auscultation rober. ABSENT: rales, rhonchi, wheezes Cardiovascular exam: PRESENT: RRR. ABSENT: diastolic murmur, rubs, systolic murmur GI/Abdominal exam: PRESENT: distended, normal bowel sounds, soft. ABSENT: guarding, mass, organolmegaly, rebound, tenderness Neurological exam: PRESENT: alert, awake, oriented to person, oriented to place, oriented to time, oriented to situation, CN II-XII grossly intact. ABSENT: motor sensory deficit Results Laboratory Results: 07/06/18 17:05 07/06/18 17:05 07/06/18 07/06/18 17:05 17:05 WBC 4.1 RBC 5.07 Hgb 16.6 Hct 48.0 MCV 95 MCH 32.7 MCHC 34.6 RDW 15.0 H Plt Count 37 L Seg Neutrophils % 77.9 Lymphocytes % 11.5 L Monocytes % 10.1 Eosinophils % 0.2 Basophils % 0.3 Absolute Neutrophils 3.2 Absolute Lymphocytes 0.5 Absolute Monocytes 0.4 Absolute Eosinophils 0.0 Absolute Basophils 0.0 Sodium 138.2 Potassium 4.7 Chloride 102 Carbon Dioxide 32 H Anion Gap 4 L BUN 10 Creatinine 0.52 Est GFR ( Amer) > 60 Est GFR (Non-Af Amer) > 60 Glucose 159 H Calcium 8.0 L Total Bilirubin 1.6 H AST 126 H ALT 65 Alkaline Phosphatase 186 H Total Protein 7.1 Albumin 3.1 L Impressions: Chest X-Ray 07/06/18 17:13 IMPRESSION: Left pleural effusion. Cannot exclude left lower lobe pneumonia. Cannot exclude scarring in the left base. Assessment & Plan - Diagnosis (1) Acute respiratory failure with hypoxia Is this a current diagnosis for this admission?: Yes Plan: Due to COPD exacerbation and left pleural effusion. We will start on duo nebs, IV steroids, empiric IV antibiotics, BiPAP as needed. (2) Pleural effusion Is this a current diagnosis for this admission?: Yes Plan: Acute pneumonia or possibly due to underlying liver cirrhosis. Start empiric IV antibiotics. Blood and sputum culture. Will consult pulmonology. (3) Pharyngitis Is this a current diagnosis for this admission?: Yes Plan: Unlikely strep based on physical examination. Rapid strep pending. Continue medical IV antibiotics. Sputum culture. (4) COPD exacerbation Is this a current diagnosis for this admission?: Yes Plan: As problem #1. (5) Cirrhosis of liver Qualifiers: Ascites presence: without ascites Is this a current diagnosis for this admission?: No Plan: Due to hepatitis C infection. Patient says GI specialist outpatient. Restart home meds. Monitor volume status. Start on hepatic diet. (6) Thrombocytopenia Is this a current diagnosis for this admission?: No Plan: Likely secondary to chronic cirrhosis. Monitor for bleeding. CBC tomorrow. (7) Tobacco abuse Is this a current diagnosis for this admission?: No Plan: Counseled on quitting. Will start on nicotine patch.
[2018-07-06] MEDS: IPRATROPIUM/ALBUTEROL 0.5-2.5 MG/3 ML AMPUL NEB SCH ×2 (19:18)
[2018-07-06] MEDS: OXYCODONE-ACETAMINOPHEN 5-325 MG TABLET PO PRN (20:00)
[2018-07-06] MEDS: SPIRONOLACTONE 25 MG TABLET PO SCH (20:00)
[2018-07-06] MEDS: GUAIFENESIN 600 MG TABLET.SA PO SCH (21:30)
[2018-07-06] MEDS: FAMOTIDINE 20 MG TABLET PO SCH (21:30)
[2018-07-07] MEDS: IPRATROPIUM/ALBUTEROL 0.5-2.5 MG/3 ML AMPUL NEB SCH ×5 (01:52→19:55)
[2018-07-07] MEDS: OXYCODONE-ACETAMINOPHEN 5-325 MG TABLET PO PRN ×2 (02:46→14:22)
[2018-07-07] MEDS: METHADONE HCL 10 MG TABLET PO PRN ×2 (02:50→14:23)
[2018-07-07 06:51] LABS: HEMATOCRIT 47.4 % (37.9-51.0); HEMOGLOBIN 16.4 g/dL (13.5-17.0); MEAN CORPUSCULAR HEMOGLOBIN 32.7 pg (27.0-33.4); MEAN CORPUSCULAR HGB CONC 34.6 g/dL (32.0-36.0); MEAN CORPUSCULAR VOLUME 95 fl (80-97); RED BLOOD COUNT 5.01 10^6/uL (4.35-5.55); WHITE BLOOD COUNT 6.6 10^3/uL (4.0-10.5)
[2018-07-07 06:59] LABS: ALANINE AMINOTRANSFERASE 65 U/L (21-72); ALBUMIN 2.8 g/dL (3.5-5.0); ALKALINE PHOSPHATASE 154 U/L (38-126); ANION GAP 6 (5-19); ASPARTATE AMINO TRANSFERASE 102 U/L (17-59); BILIRUBIN,DIRECT 0.8 mg/dL (0.0-0.4); BILIRUBIN,TOTAL 1.4 mg/dL (0.2-1.3); BLOOD UREA NITROGEN 13 mg/dL (7-20); CALCIUM 7.7 mg/dL (8.4-10.2); CARBON DIOXIDE 30 mmol/L (22-30); CHLORIDE 103 mmol/L (98-107); GLUCOSE 208 mg/dL (75-110); POTASSIUM 5.3 mmol/L (3.6-5.0); SODIUM 139.4 mmol/L (137-145); TOTAL PROTEIN 6.7 g/dL (6.3-8.2)
--- NOTE | 2018-07-07 07:12 | Physician Advisory Note ---
Physician Advisor ProgressNote .: Pursuant to the plan for [facility], I have reviewed the medical record for this patient. Physician Advisor Statement: Nice documentation of Acute REsp Failure in this pt who had labored resp.s & O2 sats 70s in ED. STatus: Medicare pt, 1MN in hosp care so far. - If pt not safe for d/c today, please document ongoing clinical concerns & will be appropriate for Inpt status. Thanks! CK
[2018-07-07 07:22] LABS: PLATELET COUNT 35 10^3/uL (150-450)
[2018-07-07 07:26] LABS: ABSOLUTE LYMPHOCYTES# (MANUAL) 0.4 10^3/uL (0.5-4.7); ABSOLUTE MONOCYTES # (MANUAL) 0.1 10^3/uL (0.1-1.4); ABSOLUTE NEUTROPHILS# (MANUAL) 6.1 10^3/uL (1.7-8.2); ANISOCYTOSIS SLIGHT; BAND NEUTROPHILS % (MANUAL) 6 % (3-5); BASOPHILS % (MANUAL) 0 % (0-2); EOSINOPHILS % (MANUAL) 0 % (0-6); LYMPHOCYTES % (MANUAL) 5 % (13-45); METAMYELOCYTES % (MANUAL) 1 % (0); MONOCYTES % (MANUAL) 2 % (3-13); PLATELET COMMENT DECREASED; SEGMENTED NEUTROPHILS % (MAN) 85 % (42-78); TOTAL CELLS COUNTED 100; TOXIC GRANULATION SLIGHT; TOXIC VACUOLATION PRESENT
[2018-07-07] MEDS ORDERED: CALCIUM GLUCONATE 1000 MG/10 ML INJ IV ONE (10:30)
[2018-07-07] MEDS: FUROSEMIDE 40 MG TABLET PO SCH ×2 (10:32→17:40)
[2018-07-07] MEDS: GUAIFENESIN 600 MG TABLET.SA PO SCH (10:32)
[2018-07-07] MEDS: AZITHROMYCIN 250 MG TABLET PO SCH (10:32)
[2018-07-07] MEDS: FAMOTIDINE 20 MG TABLET PO SCH (10:33)
[2018-07-07] MEDS: SPIRONOLACTONE 25 MG TABLET PO SCH (10:33)
[2018-07-07] MEDS: LACTULOSE SYRUP 20 GM/30 ML UDCUP PO SCH (10:34)
[2018-07-07] MEDS: CEFTRIAXONE 1 GM/D5W RTU 1 GM/50 ML RTUPB IV SCH (10:35)
--- NOTE | 2018-07-07 11:22 | PDOC PROGRESS REPORT ---
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 He denies any recent sick contact, recent travel, or recent hospitalizations. In ED he was found to be saturating 75% on room air and tachypneic. A chest x- ray was done which showed left pleural effusion. Patient was started on empiric antibiotics, nebs and IV steroids. Hospital was consulted for management of left pleural effusion and hypoxia. 07/07/2018. No acute events overnight. Patient has been saturating on the 90s on BiPAP however as per RT report patient desats off of BiPAP. His systolic blood pressure has been ranging from 134-169. Respiratory rate of 14-31. SPO2 of 75-92. CBC within normal limits for chronic low platelets. On CMP he has mild hyperkalemia with persistent elevated liver enzymes and high total bili. Rapid strep test was negative and his cultures are pending. On encounter patient is sitting in his bed enjoying his breakfast appears to be in mild respiratory distress ,stating that he does not like to use BiPAP because it is too uncomfortable. He prefers to be placed on nasal cannula instead. His throat pain has resolved and he is stating his respiratory problems are improving since yesterday. He is aware of his pleural effusion and denies any previous cardiac history . He does not use oxygen at home but he is still smoking. He denies having any fever, chest pain, nausea, vomiting, diarrhea or any urinary symptoms. On physical examination improving left lower lobe crackles. He is on day 2 of IV ceftriaxone, p.o. azithromycin. Reason For Visit: PNEUMONIA Physical Exam Vital Signs: Temp Pulse Resp BP Pulse Ox 98.4 F 75 16 143/48 H 90 L 07/07/18 08:00 07/07/18 08:30 07/07/18 08:30 07/07/18 08:00 07/07/18 08:30 Intake & Output 07/06/18 07/07/1819 06:59 06:59 06:59 Intake Total 1240 Balance 1240 Weight 120.9 kg General appearance: PRESENT: no acute distress, well-developed, well-nourished Head exam: PRESENT: atraumatic, normocephalic Results Laboratory Results: 07/07/18 05:44 07/07/18 05:44 07/06/18 07/06/18 07/07/18 17:05 17:05 05:44 WBC 4.1 6.6 RBC 5.07 5.01 Hgb 16.6 16.4 Hct 48.0 47.4 MCV 95 95 MCH 32.7 32.7 MCHC 34.6 34.6 RDW 15.0 H 15.0 H Plt Count 37 L 35 L Seg Neutrophils % 77.9 Not Reportable Lymphocytes % 11.5 L Not Reportable Monocytes % 10.1 Not Reportable Eosinophils % 0.2 Not Reportable Basophils % 0.3 Not Reportable Absolute Neutrophils 3.2 Not Reportable Absolute Lymphocytes 0.5 Not Reportable Absolute Monocytes 0.4 Not Reportable Absolute Eosinophils 0.0 Not Reportable Absolute Basophils 0.0 Not Reportable Sodium 138.2 Potassium 4.7 Chloride 102 Carbon Dioxide 32 H Anion Gap 4 L BUN 10 Creatinine 0.52 Est GFR ( Amer) > 60 Est GFR (Non-Af Amer) > 60 Glucose 159 H Calcium 8.0 L Total Bilirubin 1.6 H AST 126 H ALT 65 Alkaline Phosphatase 186 H Total Protein 7.1 Albumin 3.1 L 07/07/18 05:44 WBC RBC Hgb Hct MCV MCH MCHC RDW Plt Count Seg Neutrophils % Lymphocytes % Monocytes % Eosinophils % Basophils % Absolute Neutrophils Absolute Lymphocytes Absolute Monocytes Absolute Eosinophils Absolute Basophils Sodium 139.4 Potassium 5.3 H Chloride 103 Carbon Dioxide 30 Anion Gap 6 BUN 13 Creatinine 0.58 Est GFR ( Amer) > 60 Est GFR (Non-Af Amer) > 60 Glucose 208 H Calcium 7.7 L Total Bilirubin 1.4 H AST 102 H ALT 65 Alkaline Phosphatase 154 H Total Protein 6.7 Albumin 2.8 L Impressions: Chest X-Ray 07/06/18 17:13 IMPRESSION: Left pleural effusion. Cannot exclude left lower lobe pneumonia. Cannot exclude scarring in the left base. Assessment & Plan - Diagnosis (1) Acute respiratory failure with hypoxia Is this a current diagnosis for this admission?: Yes Plan: Due to COPD exacerbation and left pleural effusion due to underlying cirrhosis or pneumonia. We will start on duo nebs, IV steroids, empiric IV antibiotics, BiPAP as needed. (2) Pleural effusion Is this a current diagnosis for this admission?: Yes Plan: Likely due to acute pneumonia or volume overload due to underlying liver cirrhosis. Day 2 of IV ceftriaxone, p.o. azithromycin. Prelim sputum culture negative pending blood cultures. Pending pulmonary consult. (3) Pharyngitis Is this a current diagnosis for this admission?: Yes Plan: Unlikely strep based on physical examination. Rapid strep pending. Continue medical IV antibiotics. Sputum culture. (4) COPD exacerbation Is this a current diagnosis for this admission?: Yes Plan: As problem #1. (5) Cirrhosis of liver Qualifiers: Ascites presence: without ascites Is this a current diagnosis for this admission?: No Plan: Due to hepatitis C infection. Patient says GI specialist outpatient. Restart home meds. Monitor volume status. Start on hepatic diet. (6) Thrombocytopenia Is this a current diagnosis for this admission?: No Plan: Likely secondary to chronic cirrhosis. Monitor for bleeding. CBC tomorrow. (7) Tobacco abuse Is this a current diagnosis for this admission?: No Plan: Counseled on quitting. Will start on nicotine patch.
[2018-07-07] MEDS: TIOTROPIUM BROMIDE DPI 5 CAP/KIT (18 MCG/CAP) IH SCH (14:13)
[2018-07-07] MEDS: PATIROMER 8.4 GM SUSP PACKET PO SCH (17:40)
[2018-07-08] MEDS: FAMOTIDINE 20 MG TABLET PO SCH ×3 (00:01→22:05)
[2018-07-08] MEDS: METHADONE HCL 10 MG TABLET PO PRN ×3 (00:02→22:05)
[2018-07-08] MEDS: IPRATROPIUM/ALBUTEROL 0.5-2.5 MG/3 ML AMPUL NEB SCH ×4 (02:02→19:34)
[2018-07-08 06:09] LABS: INTERNATIONAL RATION (INR) 1.35; PROTHROMBIN TIME 17.4 SEC (11.4-15.4)
[2018-07-08 06:10] LABS: HEMOGLOBIN 16.5 g/dL (13.5-17.0); MEAN CORPUSCULAR HEMOGLOBIN 32.5 pg (27.0-33.4); MEAN CORPUSCULAR HGB CONC 34.3 g/dL (32.0-36.0); MEAN CORPUSCULAR VOLUME 95 fl (80-97); PARTIAL THROMBOPLASTIN TIME 35.8 SEC (23.5-35.8); RED BLOOD COUNT 5.07 10^6/uL (4.35-5.55); RED CELL DISTRIBUTION WIDTH 15.4 % (11.5-14.0); WHITE BLOOD COUNT 5.9 10^3/uL (4.0-10.5)
[2018-07-08 06:27] LABS: ALANINE AMINOTRANSFERASE 67 U/L (21-72); ALKALINE PHOSPHATASE 150 U/L (38-126); ANION GAP 7 (5-19); ASPARTATE AMINO TRANSFERASE 112 U/L (17-59); BILIRUBIN,DIRECT 0.8 mg/dL (0.0-0.4); BILIRUBIN,TOTAL 1.5 mg/dL (0.2-1.3); BLOOD UREA NITROGEN 18 mg/dL (7-20); CALCIUM 8.5 mg/dL (8.4-10.2); CARBON DIOXIDE 34 mmol/L (22-30); CHLORIDE 98 mmol/L (98-107); GLUCOSE 141 mg/dL (75-110); POTASSIUM 4.9 mmol/L (3.6-5.0); SODIUM 138.7 mmol/L (137-145); TOTAL PROTEIN 6.9 g/dL (6.3-8.2)
[2018-07-08 06:40] LABS: PLATELET COUNT 35 10^3/uL (150-450)
[2018-07-08 06:41] LABS: ABSOLUTE LYMPHOCYTES# (MANUAL) 0.3 10^3/uL (0.5-4.7); ABSOLUTE MONOCYTES # (MANUAL) 0.5 10^3/uL (0.1-1.4); ANISOCYTOSIS 1+; BAND NEUTROPHILS % (MANUAL) 2 % (3-5); BASOPHILS % (MANUAL) 0 % (0-2); EOSINOPHILS % (MANUAL) 1 % (0-6); LYMPHOCYTES % (MANUAL) 3 % (13-45); MONOCYTES % (MANUAL) 9 % (3-13); PLATELET COMMENT DECREASED; SEGMENTED NEUTROPHILS % (MAN) 83 % (42-78); TOTAL CELLS COUNTED 100; TOXIC VACUOLATION PRESENT
--- NOTE | 2018-07-08 09:17 | RADIOLOGY REPORT (SQ) ---
EXAM DESCRIPTION: CHEST SINGLE VIEW COMPLETED DATE/TIME: 07/08/2018 8:48 am REASON FOR STUDY: pleural effusion; Needs chest x-ray, upright, COMPARISON: 07/06/2018 chest films EXAM PARAMETERS: NUMBER OF VIEWS: One view. TECHNIQUE: Single frontal radiographic view of the chest acquired. RADIATION DOSE: NA LIMITATIONS: None. FINDINGS: LUNGS AND PLEURA: Persistent moderate left pleural effusion with left lower lobe collapse and consolidation. If no old chest films are available for comparison, consider follow-up with CT ch est with IV contrast. Right lung pulmonary vascular congestion. No right pleural effusion or focal right airspace disease. MEDIASTINUM AND HILAR STRUCTURES: No masses. Contour normal. HEART AND VASCULAR STRUCTURES: Mild cardiomegaly BONES: No acute findings. Convex leftward upper thoracic curvature. HARDWARE: Lower cervical fusion hardware present OTHER: No other significant finding. IMPRESSION: Left chest volume loss, pleural thickening/ pleural fluid and lung consolidation. Chest CT with IV contrast recommended for followup. Comparison with any old or outside films recommended. Right lung pulmonary vascular congestion without alveolar edema. TECHNICAL DOCUMENTATION: JOB ID: [id number] [employer]- All Rights Reserved Reading location - IP/workstation name: [email or web address]
[2018-07-08] MEDS: GUAIFENESIN 600 MG TABLET.SA PO SCH ×4 (10:14→22:07)
[2018-07-08] MEDS: SPIRONOLACTONE 25 MG TABLET PO SCH (10:15)
[2018-07-08] MEDS: FUROSEMIDE 40 MG TABLET PO SCH ×2 (10:15→18:04)
[2018-07-08] MEDS: AZITHROMYCIN 250 MG TABLET PO SCH (10:16)
[2018-07-08] MEDS: OXYCODONE-ACETAMINOPHEN 5-325 MG TABLET PO PRN ×2 (10:16→22:05)
[2018-07-08] MEDS: LACTULOSE SYRUP 20 GM/30 ML UDCUP PO SCH (10:17)
[2018-07-08] MEDS: CEFTRIAXONE 1 GM/D5W RTU 1 GM/50 ML RTUPB IV SCH (10:17)
[2018-07-08] MEDS: TIOTROPIUM BROMIDE DPI 5 CAP/KIT (18 MCG/CAP) IH SCH (10:18)
[2018-07-08] MEDS ORDERED: NORMAL SALINE 250 ML IV PRN ×2 (15:23)
[2018-07-08] MEDS ORDERED: DIPHENHYDRAMINE HCL 25 MG CAPSULE PO PRN (15:23)
--- NOTE | 2018-07-08 15:32 | PDOC PROGRESS REPORT ---
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 He denies any recent sick contact, recent travel, or recent hospitalizations. In ED he was found to be saturating 75% on room air and tachypneic. A chest x- ray was done which showed left pleural effusion. Patient was started on empiric antibiotics, nebs and IV steroids. Hospital was consulted for management of left pleural effusion and hypoxia. 07/07/2018. No acute events overnight. Patient has been saturating on the 90s on BiPAP however as per RT report patient desats off of BiPAP. His systolic blood pressure has been ranging from 134-169. Respiratory rate of 14-31. SPO2 of 75-92. CBC within normal limits for chronic low platelets. On CMP he has mild hyperkalemia with persistent elevated liver enzymes and high total bili. Rapid strep test was negative and his cultures are pending. On encounter patient is sitting in his bed enjoying his breakfast appears to be in mild respiratory distress ,stating that he does not like to use BiPAP because it is too uncomfortable. He prefers to be placed on nasal cannula instead. His throat pain has resolved and he is stating his respiratory problems are improving since yesterday. He is aware of his pleural effusion and denies any previous cardiac history . He does not use oxygen at home but he is still smoking. He denies having any fever, chest pain, nausea, vomiting, diarrhea or any urinary symptoms. On physical examination improving left lower lobe crackles. He is on day 2 of IV ceftriaxone, p.o. azithromycin. 07/08/2018. No acute events overnight. Patient's cough has resolved. See physical therapy was able to ambulate 100 feet, planing of shortness of breath on ambulation. Physical therapy was recommended. Has been saturating in the low 90s on 2 L of oxygen FiO2 of 50% through nasal cannula. Systolic blood pressure ranging from 143-160. White blood cells 5.9, platelets 35, CMP within normal limits. Blood and sputum cultures no growth so far. Repeat chest x-ray no significant changes from admission. Pulmonology has been consulted. Patient will possibly get a thoracentesis. He is p.o. tolerant, having normal bowel and bladder movements. Denies any fever, chills, nausea, vomiting, diarrhea, constipation or any urinary symptoms. Reason For Visit: ACUTE RESPIRATORY FAILURE,PLEURAL EFFUSION,COPD Physical Exam Vital Signs: Temp Pulse Resp BP Pulse Ox 98.8 F 82 18 160/67 H 93 07/08/18 08:00 07/08/18 14:00 07/08/18 13:15 07/08/18 08:00 07/08/18 13:15 Intake & Output 07/07/18 07/08/18 07/09/18 06:59 06:59 06:59 Intake Total 1240 1898 50 Output Total 1600 Balance 1240 298 50 Weight 120.9 kg 122.8 kg General appearance: PRESENT: no acute distress, well-developed, well-nourished Head exam: PRESENT: atraumatic, normocephalic Neck exam: ABSENT: carotid bruit, JVD, lymphadenopathy, thyromegaly Respiratory exam: PRESENT: decreased breath sounds - Left lower lobe, rhonchi, wheezes. ABSENT: rales Extremities exam: PRESENT: full ROM. ABSENT: calf tenderness, clubbing, pedal edema Neurological exam: PRESENT: alert, awake, oriented to person, oriented to place, oriented to time, oriented to situation, CN II-XII grossly intact. ABSENT: motor sensory deficit Skin exam: PRESENT: dry, intact, warm. ABSENT: cyanosis, rash Results Laboratory Results: 07/08/18 05:06 07/08/18 05:06 07/08/18 07/08/18 05:06 05:06 WBC 5.9 RBC 5.07 Hgb 16.5 Hct 48.0 MCV 95 MCH 32.5 MCHC 34.3 RDW 15.4 H Plt Count 35 L Seg Neutrophils % Not Reportable Lymphocytes % Not Reportable Monocytes % Not Reportable Eosinophils % Not Reportable Basophils % Not Reportable Absolute Neutrophils Not Reportable Absolute Lymphocytes Not Reportable Absolute Monocytes Not Reportable Absolute Eosinophils Not Reportable Absolute Basophils Not Reportable Sodium 138.7 Potassium 4.9 Chloride 98 Carbon Dioxide 34 H Anion Gap 7 BUN 18 Creatinine 0.58 Est GFR ( Amer) > 60 Est GFR (Non-Af Amer) > 60 Glucose 141 H Calcium 8.5 Magnesium 1.7 Total Bilirubin 1.5 H AST 112 H ALT 67 Alkaline Phosphatase 150 H Total Protein 6.9 Albumin 3.0 L 07/06/18 17:20 Throat Throat Culture - Final NORMAL MARYAM Impressions: Chest X-Ray 07/08/18 05:00 IMPRESSION: Left chest volume loss, pleural thickening/ pleural fluid and lung consolidation. Chest CT with IV contrast recommended for followup. Comparison with any old or outside films recommended. Right lung pulmonary vascular congestion without alveolar edema. Assessment & Plan - Diagnosis (1) Acute respiratory failure with hypoxia Is this a current diagnosis for this admission?: Yes Plan: Unchanged. Saturating in the low 90s on 5 L of oxygen FiO2 of 50%. Due to COPD exacerbation and left pleural effusion due to underlying cirrhosis or pneumonia. Day 3 of IV steroids, 3 of IV empiric antibiotics, continue duo nebs continue BiPAP as needed. (2) Pleural effusion Is this a current diagnosis for this admission?: Yes Plan: Likely due to acute pneumonia or volume overload due to underlying liver cirrhosis. Day 3 of IV ceftriaxone, p.o. azithromycin. Prelim sputum culture negative pending blood cultures. CT chest with contrast ordered. We will give 1 dose of vitamin K and transfuse platelets for possible thoracentesis tomorrow. (3) Pharyngitis Is this a current diagnosis for this admission?: Yes Plan: Resolved. Rapid strep test negative. Sputum culture no growth. Follow-up cultures. (4) COPD exacerbation Is this a current diagnosis for this admission?: Yes Plan: As problem #1. (5) Cirrhosis of liver Qualifiers: Ascites presence: without ascites Is this a current diagnosis for this admission?: No Plan: Due to hepatitis C infection. Patient says GI specialist outpatient. Restart home meds. Monitor volume status. Start on hepatic diet. (6) Thrombocytopenia Is this a current diagnosis for this admission?: No Plan: Likely secondary to chronic cirrhosis. Monitor for bleeding. CBC tomorrow. (7) Tobacco abuse Is this a current diagnosis for this admission?: No Plan: Counseled on quitting. Will start on nicotine patch.
--- NOTE | 2018-07-08 15:44 | CONSULTATION REPORT E ---
Consultation Report NAME: DONTAE RODRIGUEZ : 1965 AGE: 53Y DATE: 07/07/2018 TO: GEREMIAS NUÑEZ M.D. FROM: DAVID HERMOSILLO M.D. Requesting Physician HISTORY OF PRESENT ILLNESS: The patient is a 53-year-old male who came for dyspnea and shortness of breath for the last few days. Complained about coughing yellow-green phlegm. No fever or chills. Complained about chronic back pain due to multiple back surgeries and right hip surgery. Presenting with an infiltrate in the left lower lobe with pleural effusion. Consulted because of pneumonia and pleural effusion, left side. PAST MEDICAL HISTORY: Reports none except for: 1. COPD. 2. History of cirrhosis and hepatitis. SURGICAL HISTORY: History of orthopedic surgery, back. SOCIAL HISTORY: He smokes 1 pack a day for several years. Denies any illicit drug use, alcohol abuse. FAMILY HISTORY: Reviewed but not pertinent. MEDICATIONS AT HOME: Include: 1. Lasix. 2. Lactulose. 3. Methadone. 4. Oxycodone. 5. Spironolactone. 6. Cephalexin. 7. Bactrim DS. ALLERGIES: No known drug allergies. PHYSICAL EXAMINATION: VITAL SIGNS: The patient's temperature is 97.7 with a T-max of 98.4, heart rate is 80, blood pressure is 165/70, respiratory rate is 18, saturation is 94% on biPAP therapy. EYES: No jaundice or pallor. EARS, NOSE, AND THROAT: No ear drainage. No nasal discharge. CHEST AND LUNGS: No wheezing, no rhonchi, no coarse crackles. Decreased breath sounds in left lung base and fine rales left lung base. CARDIOVASCULAR: S1, S2 distinct. Normal rate and regular rhythm. ABDOMEN: Flabby, positive bowel sounds, soft, nondistended. EXTREMITIES: No joint tenderness. LABORATORY DATA: CBC done today shows white count of 6.6, hemoglobin 16.4, hematocrit is 47.4, and platelet count is 35,000. Chemistry: Sodium is 139, potassium is 5.3, chloride 103, BUN 13, creatinine is 0.58, calcium is 7.7. Total bilirubin is 1.4, direct bilirubin is 0.8, SGOT is 102, SGPT is 65, alkaline phosphatase 54, albumin is 4.8. Chest x-ray showed pleural effusion on the left side. ASSESSMENT: 1. Pleural effusion on left side, possibly pulmonary process. pneumonia cannot be completely excluded. 2. Pneumonia left lower lobe. 3. Severe thrombocytopenia. 4. History of liver cirrhosis. PLAN/RECOMMENDATION: 1. Do a chest ultrasound ongoing to evaluate the pleural effusion. 2. Continue IV Rocephin and Zithromax. White blood cell count appears normal. No signs of leukocytosis, no evidence of fever. Pleural effusion is possibly parapneumonic, simple and uncomplicated. We still have to do a chest ultrasound to quantify the pleural effusion. Optimize antibiotic coverage,and do blood culture and sputum culture. DICTATING PHYSICIAN: GEREMIAS NUÑEZ MD,CT,MPH [id number] PHY#: [id number] ID: [id number] JOB#: [id number] ACCT: [id number] cc:GEREMIAS NUÑEZ M.D. > MTDD
[2018-07-08] MEDS ORDERED: PHYTONADIONE INJ 10 MG/1 ML AMPULE SUBCUT ONE ×2 (16:00→19:00)
[2018-07-08] MEDS: PATIROMER 8.4 GM SUSP PACKET PO SCH (18:03)
--- NOTE | 2018-07-08 19:01 | RADIOLOGY REPORT (SQ) ---
EXAM DESCRIPTION: CT CHEST WITH COMPLETED DATE/TIME: 07/08/2018 5:46 pm REASON FOR STUDY: Pleural Effusion COMPARISON: Portable chest done earlier the same day. TECHNIQUE: CT scan of the chest performed using helical scanning technique with dynamic intravenous contrast injection. Images reviewed with lung, soft tissue and bone windows. Reconstructed coronal and sagittal MPR and MIP images reviewed. All images stored on PACS. All CT scanners at this facility use dose modulation, iterative reconstruction, and/or weight based d osing when appropriate to reduce radiation dose to as low as reasonably achievable (ALARA). [facility]: Dose Right [facility]: CareDose [facility]: Dose Right [facility]: Teradose 4D [facility]: Yingying Licai CONTRAST TYPE AND DOSE: contrast/concentration: Isovue 350.00 mg/ml; Total Contrast Delivered: 80.0 ml; Total Saline Delivered: 55.0 ml RENAL FUNCTION: BUN 18, creatinine 0.58 RADIATION DOSE: CT Rad equipment meets quality standard of care and radiation dose reduction techniq ues were employed. CTDIvol: 16.5 mGy. DLP: 759 mGy-cm. . LIMITATIONS: None. FINDINGS: LUNGS AND PLEURA: There is a moderate left-sided pleural effusion. There is subpleural ai rspace disease on the left along with consolidation in the left lower lobe. There is alveolar airspa ce disease in the right upper lobe and to a lesser extent right base. HILAR AND MEDIASTINAL STRUCTURES: There are small mediastinal nodes. Most likely reactive. HEART AND VASCULAR STRUCTURES: No aneurysm or dissection. No central pulmonary emboli. No pericardi al effusion. HARDWARE: None in the chest. UPPER ABDOMEN: There is a small amount of ascites. Portal systemic shunt is in place. The liver is nodular in contour. There is splenomegaly. There is a single gallstone. THYROID AND OTHER SOFT TISSUES: No masses. No adenopathy. BONES: Probable ankylosing spondylitis is with fusion throughout the mid and lower dorsal spine. OTHER: No other significant finding. IMPRESSION: Moderate left-sided pleural effusion with subpleural infiltrate consistent with pneumoni a. There is alveolar airspace disease in the right upper lobe and to a lesser extent in the right ba se most likely pneumonia. TECHNICAL DOCUMENTATION: JOB ID: [id number] Quality ID # [id number]: Final reports with documentation of one or more dose reduction techniques (e.g., Au tomated exposure control, adjustment of the mA and/or kV according to patient size, use of iterative reconstruction technique) 2010 [employer]- All Rights Reserved Reading location - IP/workstation name: [email or web address]
[2018-07-08] MEDS: FUROSEMIDE INJ/PF 40 MG/4 ML SDV IV SCH (22:05)
[2018-07-08] MEDS: ACETAMINOPHEN 325 MG TABLET PO PRN (22:11)
[2018-07-09] MEDS: IPRATROPIUM/ALBUTEROL 0.5-2.5 MG/3 ML AMPUL NEB SCH ×4 (02:06→20:25)
[2018-07-09 05:09] LABS: ABSOLUTE LYMPHOCYTES (AUTO) 0.4 10^3/uL (0.5-4.7); ABSOLUTE MONOCYTES (AUTO) 0.4 10^3/uL (0.1-1.4); ABSOLUTE NEUT (AUTO) 2.6 10^3/uL (1.7-8.2); BASOPHILS % (AUTO) 0.2 % (0-2); EOSINOPHILS % (AUTO) 0.3 % (0-6); HEMATOCRIT 43.8 % (37.9-51.0); HEMOGLOBIN 15.1 g/dL (13.5-17.0); LYMPHOCYTES % (AUTO) 10.6 % (13-45); MEAN CORPUSCULAR HEMOGLOBIN 32.6 pg (27.0-33.4); MEAN CORPUSCULAR HGB CONC 34.4 g/dL (32.0-36.0); MEAN CORPUSCULAR VOLUME 95 fl (80-97); MONOCYTES % (AUTO) 11.1 % (3-13); RED BLOOD COUNT 4.62 10^6/uL (4.35-5.55); RED CELL DISTRIBUTION WIDTH 15.1 % (11.5-14.0); SEGMENTED NEUTROPHILS % (AUTO) 77.8 % (42-78); TOTAL CELLS COUNTED % (AUTO) 100 %; WHITE BLOOD COUNT 3.4 10^3/uL (4.0-10.5)
[2018-07-09 05:20] LABS: ALANINE AMINOTRANSFERASE 61 U/L (21-72); ALBUMIN 2.8 g/dL (3.5-5.0); ALKALINE PHOSPHATASE 110 U/L (38-126); ASPARTATE AMINO TRANSFERASE 104 U/L (17-59); BILIRUBIN,DIRECT 0.8 mg/dL (0.0-0.4); BILIRUBIN,TOTAL 1.7 mg/dL (0.2-1.3); BLOOD UREA NITROGEN 17 mg/dL (7-20); CALCIUM 8.5 mg/dL (8.4-10.2); GLUCOSE 127 mg/dL (75-110); POTASSIUM 4.7 mmol/L (3.6-5.0); TOTAL PROTEIN 6.4 g/dL (6.3-8.2)
[2018-07-09 05:24] LABS: PLATELET COUNT 38 10^3/uL (150-450)
[2018-07-09 05:46] LABS: CHLORIDE 95 mmol/L (98-107); SODIUM 137.8 mmol/L (137-145)
[2018-07-09 05:51] LABS: ANION GAP 2 (5-19)
[2018-07-09 05:54] LABS: CARBON DIOXIDE 41 mmol/L (22-30)
[2018-07-09] MEDS ORDERED: OXYCODONE-ACETAMINOPHEN 5-325 MG TABLET PO PRN (06:36)
--- NOTE | 2018-07-09 08:30 | RADIOLOGY REPORT (SQ) ---
EXAM DESCRIPTION: U/S CHEST COMPLETED DATE/TIME: 07/09/2018 7:34 am REASON FOR STUDY: Quantify pleural effusion, bilateral COMPARISON: CT chest 07/08/2018 TECHNIQUE: Ultrasound of the right and left pleural space from a posterior approach was performed. LIMITATIONS: None. FINDINGS: No right pleural effusion. Small left pleural effusion in the posterior costophrenic sulcus. IMPRESSION: Ultrasound for quantification of pleural effusion. No right pleural effusion. Small le ft posterior pleural effusion. TECHNICAL DOCUMENTATION: JOB ID: [id number] [employer]- All Rights Reserved Reading location - IP/workstation name: [employer]-[facility]-
--- NOTE | 2018-07-09 08:36 | PDOC CONSULTATION ---
Consultation Consult Date: 07/09/18 Consult reason:: Hematology/Oncology consultation was requested for patient with thrombocytopenia. History of Present Illness Admission Date/PCP: 07/07/18 12:32 CONNER OSULLIVAN PA-C History of Present Illness: DONTAE RODRIGUEZ is a 53 year old male with a history of HCV and liver cirrhosis who presented to the ED with a sore throat and dyspnea. He was found to be hypoxic/hypercapnic and was also found to have a pleural effusion. This morning, he is on CPAP/BIPAP and states that his sore throat has resolved, but his breathing is still a problem. He also complains of heartburn for which he takes "lots of Tums." He denies having any bleeding issues and follows with GI (he cannot remember who) for his chronic liver issues. He is on aldactone and lactulose regularly. Past Medical History Cardiac Medical History: Reports: None Pulmonary Medical History: Reports: Chronic Obstructive Pulmonary Disease (COPD) Endocrine Medical History: Reports: None GI Medical History: Reports: Cirrhosis, Hepatitis Hematology: Reports: Other - thrombocytopenia secondary to liver issues. Infectious Medical History: Reports: Hepatitis C Past Surgical History Past Surgical History: Reports: Orthopedic Surgery - back Social History Information Source: Patient Lives with: Spouse/Significant other Smoking Status: Current Every Day Smoker Frequency of Alcohol Use: None Hx Recreational Drug Use: No Drugs: None Past Social History Note: No genetic children. - Advance Directive Resuscitation Status: Full Code Family History Family History: Reviewed & Not Pertinent Parental Family History Reviewed: Yes - Mother natural causes. Father committed suicide Children Family History Reviewed: NA Sibling(s) Family History Reviewed.: Yes - Sister of hepatitis. Medication/Allergy Home Medications: Lactulose [Cephulac Syrup 20 gm/30 ml Udcup] 30 ml PO QID 10/17/17 Methadone HCl 10 mg PO Q6HP PRN 10/17/17 Oxycodone HCl/Acetaminophen [Percocet 5-325 mg Tablet] 1 tab PO Q6HP PRN 10/17/17 Furosemide [Lasix 40 mg Tablet] 60 mg PO DAILY 07/06/18 Spironolactone [Aldactone] 100 mg PO DAILY 07/06/18 Allergies/Adverse Reactions: No Known Allergies Allergy (Verified 07/06/18 20:06) Review of Systems Constitutional: ABSENT: fever(s), headache(s) Eyes: ABSENT: visual disturbances Ears: ABSENT: hearing changes Nose, Mouth, and Throat: PRESENT: sore throat Cardiovascular: PRESENT: dyspnea on exertion Respiratory: PRESENT: dyspnea Gastrointestinal: PRESENT: diarrhea, heartburn Genitourinary: ABSENT: dysuria Musculoskeletal: PRESENT: back pain Integumentary: ABSENT: rash Neurological: PRESENT: weakness Hematologic/Lymphatic: ABSENT: easy bleeding, easy bruising Physical Exam Vital Signs: Temp Pulse Resp BP Pulse Ox 98.1 F 85 22 H 124/62 97 07/08/18 23:33 07/09/18 07:00 07/09/18 02:07 07/08/18 23:33 07/09/18 02:07 Intake & Output 07/08/18 07/09/18 07/10/18 06:59 06:59 06:59 Intake Total 1898 210 326 Output Total 1600 835 Balance 298 -625 326 Weight 122.8 kg General appearance: PRESENT: obese Head exam: PRESENT: normocephalic Eye exam: PRESENT: EOMI Mouth exam: PRESENT: other - CPAP mask in place. Throat exam: PRESENT: other - CPAP mask in place Neck exam: ABSENT: lymphadenopathy, tenderness Respiratory exam: PRESENT: prolonged expiratory phas, wheezes Cardiovascular exam: PRESENT: other - heart sounds obscured by breathing. GI/Abdominal exam: PRESENT: soft, other - Cannot assess for organomegaly due to large abdominal girth.. ABSENT: tenderness Extremities exam: ABSENT: pedal edema Neurological exam: PRESENT: alert, awake, oriented to person, oriented to place, oriented to situation Psychiatric exam: PRESENT: appropriate affect Focused psych exam: ABSENT: restlessness Skin exam: PRESENT: erythema, other - face and neck are bright red. Results Laboratory Results: 07/09/18 04:47 07/09/18 04:47 07/08/18 07/09/18 07/09/18 16:10 04:47 04:47 WBC 3.4 L RBC 4.62 Hgb 15.1 Hct 43.8 MCV 95 MCH 32.6 MCHC 34.4 RDW 15.1 H Plt Count 38 L Seg Neutrophils % 77.8 Lymphocytes % 10.6 L Monocytes % 11.1 Eosinophils % 0.3 Basophils % 0.2 Absolute Neutrophils 2.6 Absolute Lymphocytes 0.4 L Absolute Monocytes 0.4 Absolute Eosinophils 0.0 Absolute Basophils 0.0 Sodium 137.8 Potassium 4.7 Chloride 95 L Carbon Dioxide 41 H* Anion Gap 2 L BUN 17 Creatinine 0.60 Est GFR ( Amer) > 60 Est GFR (Non-Af Amer) > 60 Glucose 127 H Calcium 8.5 Total Bilirubin 1.7 H AST 104 H ALT 61 Alkaline Phosphatase 110 Total Protein 6.4 Albumin 2.8 L Blood Type O POSITIVE 07/06/18 17:20 Throat Throat Culture - Final NORMAL MARYAM Impressions: Chest CT 07/08/18 00:00 IMPRESSION: Moderate left-sided pleural effusion with subpleural infiltrate consistent with pneumonia. There is alveolar airspace disease in the right upper lobe and to a lesser extent in the right base most likely pneumonia. Chest X-Ray 07/08/18 05:00 IMPRESSION: Left chest volume loss, pleural thickening/ pleural fluid and lung consolidation. Chest CT with IV contrast recommended for followup. Comparison with any old or outside films recommended. Right lung pulmonary vascular congestion without alveolar edema. Status: Image reviewed by me Assessment & Plan - Diagnosis (1) Thrombocytopenia Is this a current diagnosis for this admission?: No Plan: Most likely due to chronic liver disease. In October 2017, PLT was 51. He received 1 platelet pharesis pack, but this did not improve his blood counts. This is most likely due to splenic sequestration. I do not believe continued transfusions will help, unless there is active bleeding. I do not expect his PLT count to improve. (2) Pleural effusion Is this a current diagnosis for this admission?: Yes Plan: He is on Aldactone. Pulmonary is considering thoracentesis. Although there is some risk for bleeding, due to the underlying liver disease, I do not believe there is much we can do to minimize this risk any further. (3) Cirrhosis of liver Qualifiers: Ascites presence: with ascites Is this a current diagnosis for this admission?: Yes Plan: Due to longstanding HCV. - Plan Summary Plan Summary: He has chronic heartburn and has had EGD in the past, but I'm not sure if he has ever been evaluated for CHF as well. This may also be contributing to the fluid overload, in addition to the cirrhosis. May consider ECHO. Patient was discussed with Dr. James
[2018-07-09] MEDS: AZITHROMYCIN 250 MG TABLET PO SCH (10:43)
[2018-07-09] MEDS: FAMOTIDINE 20 MG TABLET PO SCH ×2 (10:43→21:57)
[2018-07-09] MEDS: SPIRONOLACTONE 25 MG TABLET PO SCH (10:43)
[2018-07-09] MEDS: CEFTRIAXONE 1 GM/D5W RTU 1 GM/50 ML RTUPB IV SCH (10:44)
[2018-07-09] MEDS: GUAIFENESIN 600 MG TABLET.SA PO SCH ×2 (10:44→21:57)
[2018-07-09] MEDS: FUROSEMIDE 40 MG TABLET PO SCH ×2 (10:48→17:24)
[2018-07-09] MEDS: TIOTROPIUM BROMIDE DPI 5 CAP/KIT (18 MCG/CAP) IH SCH (10:49)
[2018-07-09] MEDS: LACTULOSE SYRUP 20 GM/30 ML UDCUP PO SCH (10:49)
[2018-07-09] MEDS: FUROSEMIDE INJ/PF 40 MG/4 ML SDV IV SCH (10:49)
[2018-07-09 14:08] LABS: ARTERIAL BLOOD BASE EXCESS 12.1 mmol/L; ARTERIAL BLOOD H2CO3 2.02 mmol/L (1.05-1.35); ARTERIAL BLOOD HCO3 40.5 mmol/L (20-24); ARTERIAL BLOOD O2 SATURATION 97.7 % (94-98); ARTERIAL BLOOD PO2 106.4 mmHg (80-100); ARTERIAL BLOOD TOTAL CO2 42.5 mmol/L (23-27)
[2018-07-09 14:09] LABS: ARTERIAL BLOOD FIO2 50%
--- NOTE | 2018-07-09 18:31 | PDOC PROGRESS REPORT ---
Subjective Progress Note for:: 07/09/18 Subjective:: DONTAE RODRIGUEZ is a 53 year old male past medical history of cirrhosis due to hepatitis C as a child, COPD, tobacco abuse, chronic opiate dependent due to and chronic pain due to multiple back surgery and right hip surgery Patient presented to ED complaining of sore throat, with the sensation of razor blades in the back of his throat, difficulty swallowing, difficulty breathing and retrosternal pleuritic chest pain associated dry cough and fever. He denies any recent sick contact, recent travel, or recent hospitalizations. In ED he was found to be saturating 75% on room air and tachypneic. A chest x- ray was done which showed left pleural effusion. Patient was started on empiric antibiotics, nebs and IV steroids. Hospital was consulted for management of left pleural effusion and hypoxia. 07/07/2018. No acute events overnight. Patient has been saturating on the 90s on BiPAP however as per RT report patient desats off of BiPAP. His systolic blood pressure has been ranging from 134-169. Respiratory rate of 14-31. SPO2 of 75-92. CBC within normal limits for chronic low platelets. On CMP he has mild hyperkalemia with persistent elevated liver enzymes and high total bili. Rapid strep test was negative and his cultures are pending. No acute events overnight. Sore throat has resolved but patient is still having nonbloody productive cough. Denies having any chest pain, nausea, vomiting, abdominal pain, diarrhea, constipation or any urinary symptoms. SBP SBP 117-160, afebrile, saturating 99% on 5.5 L FiO2 of 50%. Blood and sputum cultures negative. WBC 3.4. Plt 38 up from 35. Status post 1 platelet pheresis pack on 07/08/2018 Chest ultrasound for quantification of pleural fluid showed no right pleural effusion positive for small left posterior pleural effusion. Pulmonology has been consulted for possible thoracentesis however due to patient's high risk of bleeding because of low platelets likely due to underlying liver cirrhosis he will be be treated empirically for pneumonia/parapneumonic effusion and reevaluated for need of thoracentesis. Will order BNP, 2D echo to rule out any cardiac causes of pleural effusion. Reason For Visit: ACUTE RESPIRATORY FAILURE,PLEURAL EFFUSION,COPD Physical Exam Vital Signs: Temp Pulse Resp BP Pulse Ox 98.2 F 78 20 127/46 H 99 07/09/18 15:29 07/09/18 15:29 07/09/18 15:29 07/09/18 15:29 07/09/18 15:29 Intake & Output 07/08/18 07/09/18 07/10/18 06:59 06:59 06:59 Intake Total 1898 210 662 Output Total 1600 835 830 Balance 298 -625 -168 Weight 122.8 kg General appearance: PRESENT: no acute distress, well-developed, well-nourished Head exam: PRESENT: atraumatic, normocephalic Respiratory exam: PRESENT: decreased breath sounds - Left lower lobe. ABSENT: rales, rhonchi, wheezes Cardiovascular exam: PRESENT: RRR. ABSENT: diastolic murmur, rubs, systolic murmur GI/Abdominal exam: PRESENT: distended, normal bowel sounds, soft. ABSENT: guarding, mass, organolmegaly, rebound, tenderness Extremities exam: PRESENT: full ROM, +1 edema. ABSENT: calf tenderness, clubbing, pedal edema Neurological exam: PRESENT: alert, awake, oriented to person, oriented to place, oriented to time, oriented to situation, CN II-XII grossly intact. ABSENT: motor sensory deficit Results Laboratory Results: 07/09/18 04:47 07/09/18 04:47 07/08/18 07/09/18 07/09/18 16:10 04:47 04:47 WBC 3.4 L RBC 4.62 Hgb 15.1 Hct 43.8 MCV 95 MCH 32.6 MCHC 34.4 RDW 15.1 H Plt Count 38 L Seg Neutrophils % 77.8 Lymphocytes % 10.6 L Monocytes % 11.1 Eosinophils % 0.3 Basophils % 0.2 Absolute Neutrophils 2.6 Absolute Lymphocytes 0.4 L Absolute Monocytes 0.4 Absolute Eosinophils 0.0 Absolute Basophils 0.0 Carbonic Acid HCO3/H2CO3 Ratio ABG pH ABG pCO2 ABG pO2 ABG HCO3 ABG O2 Saturation ABG Base Excess FiO2 Sodium 137.8 Potassium 4.7 Chloride 95 L Carbon Dioxide 41 H* Anion Gap 2 L BUN 17 Creatinine 0.60 Est GFR ( Amer) > 60 Est GFR (Non-Af Amer) > 60 Glucose 127 H Calcium 8.5 Total Bilirubin 1.7 H AST 104 H ALT 61 Alkaline Phosphatase 110 Total Protein 6.4 Albumin 2.8 L Blood Type O POSITIVE 07/09/18 13:55 WBC RBC Hgb Hct MCV MCH MCHC RDW Plt Count Seg Neutrophils % Lymphocytes % Monocytes % Eosinophils % Basophils % Absolute Neutrophils Absolute Lymphocytes Absolute Monocytes Absolute Eosinophils Absolute Basophils Carbonic Acid 2.02 H HCO3/H2CO3 Ratio 20:1 ABG pH 7.40 ABG pCO2 67.0 H ABG pO2 106.4 H ABG HCO3 40.5 H ABG O2 Saturation 97.7 ABG Base Excess 12.1 FiO2 50% Sodium Potassium Chloride Carbon Dioxide Anion Gap BUN Creatinine Est GFR ( Amer) Est GFR (Non-Af Amer) Glucose Calcium Total Bilirubin AST ALT Alkaline Phosphatase Total Protein Albumin Blood Type Impressions: Chest CT 07/08/18 00:00 IMPRESSION: Moderate left-sided pleural effusion with subpleural infiltrate consistent with pneumonia. There is alveolar airspace disease in the right upper lobe and to a lesser extent in the right base most likely pneumonia. Chest X-Ray 07/08/18 05:00 IMPRESSION: Left chest volume loss, pleural thickening/ pleural fluid and lung consolidation. Chest CT with IV contrast recommended for followup. Comparison with any old or outside films recommended. Right lung pulmonary vascular congestion without alveolar edema. Chest Ultrasound 07/09/18 00:00 IMPRESSION: Ultrasound for quantification of pleural effusion. No right pleural effusion. Small left posterior pleural effusion. Assessment & Plan - Diagnosis (1) Acute respiratory failure with hypoxia Is this a current diagnosis for this admission?: Yes Plan: Mild improvement. Saturating in the high 90s on 5 L of oxygen FiO2 of 50%. Requiring BiPAP Due to COPD exacerbation and left pleural effusion due to underlying cirrhosis or pneumonia. Day 4 of IV steroids, 4 of IV empiric antibiotics, continue duo nebs continue BiPAP as needed. Chest ultrasound for quantification of pleural fluid showed no right pleural effusion positive for small left posterior pleural effusion. Pulmonology has been consulted for possible thoracentesis however due to patient's high risk of bleeding because of low platelets likely due to underlying liver cirrhosis he will be be treated empirically for pneumonia/parapneumonic effusion and reevaluated for need of thoracentesis. Will order BNP, 2D echo to rule out any cardiac causes of pleural effusion. (2) Pneumonia Qualifiers: Laterality: left Is this a current diagnosis for this admission?: Yes Plan: Azithromycin and ceftriaxone day 4. Blood and sputum cultures negative. (3) Pleural effusion Is this a current diagnosis for this admission?: Yes Plan: Likely due to acute pneumonia or volume overload due to underlying liver cirrhosis. Chest ultrasound for quantification of pleural fluid showed no right pleural effusion positive for small left posterior pleural effusion. Pulmonology has been consulted for possible thoracentesis however due to patient's high risk of bleeding because of low platelets likely due to underlying liver cirrhosis he will be be treated empirically for pneumonia/parapneumonic effusion and reevaluated for need of thoracentesis. Will order BNP, 2D echo to rule out any cardiac causes of pleural effusion. (4) Pharyngitis Is this a current diagnosis for this admission?: Yes Plan: Resolved. Rapid strep test negative. Sputum culture no growth. Follow-up cultures. (5) COPD exacerbation Is this a current diagnosis for this admission?: Yes Plan: As problem #1. (6) Cirrhosis of liver Qualifiers: Ascites presence: with ascites Is this a current diagnosis for this admission?: Yes Plan: Due to hepatitis C infection. Patient says GI specialist outpatient. Restart home meds. Monitor volume status. Start on hepatic diet. (7) Thrombocytopenia Is this a current diagnosis for this admission?: No Plan: Likely due to splenic sequestration secondary chronic cirrhosis. Monitor for bleeding. CBC tomorrow. SBP SBP 117-160, afebrile, saturating 99% on 5.5 L FiO2 of 50%. Plt 38 up from 35. Status post 1 platelet pheresis pack on 07/08/2018 Monitor for signs of bleeding. H&H tomorrow. (8) Tobacco abuse Is this a current diagnosis for this admission?: No Plan: Counseled on quitting. Will start on nicotine patch.
[2018-07-09] MEDS: METHADONE HCL 10 MG TABLET PO PRN (21:56)
[2018-07-10] MEDS: IPRATROPIUM/ALBUTEROL 0.5-2.5 MG/3 ML AMPUL NEB SCH ×4 (01:51→20:23)
[2018-07-10] MEDS: ACETAMINOPHEN 325 MG TABLET PO PRN (06:20)
[2018-07-10] MEDS: METHADONE HCL 10 MG TABLET PO PRN ×2 (06:21→21:11)
[2018-07-10 08:18] LABS: ABSOLUTE LYMPHOCYTES (AUTO) 0.6 10^3/uL (0.5-4.7); ABSOLUTE MONOCYTES (AUTO) 0.3 10^3/uL (0.1-1.4); ABSOLUTE NEUT (AUTO) 1.8 10^3/uL (1.7-8.2); BASOPHILS % (AUTO) 0.2 % (0-2); EOSINOPHILS % (AUTO) 1.6 % (0-6); HEMATOCRIT 43.3 % (37.9-51.0); HEMOGLOBIN 14.8 g/dL (13.5-17.0); LYMPHOCYTES % (AUTO) 20.2 % (13-45); MEAN CORPUSCULAR HEMOGLOBIN 32.3 pg (27.0-33.4); MEAN CORPUSCULAR HGB CONC 34.3 g/dL (32.0-36.0); MEAN CORPUSCULAR VOLUME 94 fl (80-97); MONOCYTES % (AUTO) 11.3 % (3-13); RED BLOOD COUNT 4.59 10^6/uL (4.35-5.55); SEGMENTED NEUTROPHILS % (AUTO) 66.7 % (42-78); TOTAL CELLS COUNTED % (AUTO) 100 %; WHITE BLOOD COUNT 2.7 10^3/uL (4.0-10.5)
[2018-07-10 08:31] LABS: ALANINE AMINOTRANSFERASE 58 U/L (21-72); ALBUMIN 2.6 g/dL (3.5-5.0); ALKALINE PHOSPHATASE 106 U/L (38-126); ASPARTATE AMINO TRANSFERASE 106 U/L (17-59); BILIRUBIN,DIRECT 0.8 mg/dL (0.0-0.4); BILIRUBIN,TOTAL 1.8 mg/dL (0.2-1.3); BLOOD UREA NITROGEN 14 mg/dL (7-20); CALCIUM 8.2 mg/dL (8.4-10.2); GLUCOSE 113 mg/dL (75-110); POTASSIUM 4.2 mmol/L (3.6-5.0); TOTAL PROTEIN 6.2 g/dL (6.3-8.2)
--- NOTE | 2018-07-10 08:41 | PDOC PROGRESS REPORT ---
Subjective Progress Note for:: 07/10/18 Subjective:: Patient states that he is feeling much better today. He is up in chair, talking on phone. Breathing has greatly improved. His sore throat is gone. Reason For Visit: ACUTE RESPIRATORY FAILURE,PLEURAL EFFUSION,COPD Physical Exam Vital Signs: Temp Pulse Resp BP Pulse Ox 98.1 F 84 19 125/62 95 07/10/18 07:59 07/10/18 07:59 07/10/18 07:59 07/10/18 07:59 07/10/18 07:59 Intake & Output 07/09/18 07/10/18 07/11/18 06:59 06:59 06:59 Intake Total 210 1450 Output Total 835 2510 Balance -625 -1060 Weight 121.7 kg General appearance: PRESENT: obese Head exam: PRESENT: normocephalic Respiratory exam: PRESENT: unlabored Neurological exam: PRESENT: alert, awake Psychiatric exam: PRESENT: appropriate affect Skin exam: PRESENT: normal color Results Laboratory Results: 07/09/18 13:55 Carbonic Acid 2.02 H HCO3/H2CO3 Ratio 20:1 ABG pH 7.40 ABG pCO2 67.0 H ABG pO2 106.4 H ABG HCO3 40.5 H ABG O2 Saturation 97.7 ABG Base Excess 12.1 FiO2 50% Impressions: Chest CT 07/08/18 00:00 IMPRESSION: Moderate left-sided pleural effusion with subpleural infiltrate consistent with pneumonia. There is alveolar airspace disease in the right upper lobe and to a lesser extent in the right base most likely pneumonia. Chest X-Ray 07/08/18 05:00 IMPRESSION: Left chest volume loss, pleural thickening/ pleural fluid and lung consolidation. Chest CT with IV contrast recommended for followup. Comparison with any old or outside films recommended. Right lung pulmonary vascular congestion without alveolar edema. Chest Ultrasound 07/09/18 00:00 IMPRESSION: Ultrasound for quantification of pleural effusion. No right pleural effusion. Small left posterior pleural effusion. Assessment & Plan - Diagnosis (1) Thrombocytopenia Is this a current diagnosis for this admission?: No Plan: Chronic and unchanged, despite platelet transfusion. Most likely due to chronic liver disease. Currently very stable with no evidence of bleeding. I will be happy to continue to monitor this as outpatient, if needed. (2) Pleural effusion Is this a current diagnosis for this admission?: Yes Plan: Small. Medical management appropriate, in light of bleeding risk. (3) Cirrhosis of liver Qualifiers: Ascites presence: with ascites Is this a current diagnosis for this admission?: Yes Plan: Follow-up with GI as outpatient. Secondary to HCV. - Plan Summary Plan Summary: Will sign off, but happy to help if needed. Please call.
[2018-07-10 08:52] LABS: CHLORIDE 90 mmol/L (98-107); SODIUM 137.1 mmol/L (137-145)
[2018-07-10 08:58] LABS: ANION GAP 1 (5-19)
[2018-07-10 09:00] LABS: CARBON DIOXIDE 46 mmol/L (22-30)
[2018-07-10 10:08] LABS: PLATELET COUNT 41 10^3/uL (150-450)
[2018-07-10] MEDS: SPIRONOLACTONE 25 MG TABLET PO SCH (10:39)
[2018-07-10] MEDS: GUAIFENESIN 600 MG TABLET.SA PO SCH ×2 (10:39→21:11)
[2018-07-10] MEDS: AZITHROMYCIN 250 MG TABLET PO SCH (10:39)
[2018-07-10] MEDS: FAMOTIDINE 20 MG TABLET PO SCH ×2 (10:39→21:11)
[2018-07-10] MEDS: FUROSEMIDE 40 MG TABLET PO SCH ×2 (10:39→19:05)
[2018-07-10] MEDS: LACTULOSE SYRUP 20 GM/30 ML UDCUP PO SCH (10:40)
[2018-07-10] MEDS: CEFTRIAXONE 1 GM/D5W RTU 1 GM/50 ML RTUPB IV SCH (10:48)
[2018-07-10] MEDS: TIOTROPIUM BROMIDE DPI 5 CAP/KIT (18 MCG/CAP) IH SCH (11:08)
--- NOTE | 2018-07-10 17:51 | PDOC PROGRESS REPORT ---
Subjective Progress Note for:: 07/10/18 Subjective:: saw patient this afternoon on rounds- states he feels better- wants to know when he can go home- discussed about need for IV antibiotics and going home when ready. he understands Reason For Visit: ACUTE RESPIRATORY FAILURE,PLEURAL EFFUSION,COPD Physical Exam Vital Signs: Temp Pulse Resp BP Pulse Ox 98.1 F 82 19 125/60 97 07/10/18 15:47 07/10/18 15:47 07/10/18 15:47 07/10/18 15:47 07/10/18 15:47 Intake & Output 07/09/18 07/10/18 07/11/18 06:59 06:59 06:59 Intake Total 210 1450 50 Output Total 835 2510 Balance -625 -1060 50 Weight 268 lb 4.841 oz General appearance: PRESENT: no acute distress Head exam: PRESENT: atraumatic, normocephalic Eye exam: PRESENT: EOMI. ABSENT: conjunctival injection, scleral icterus Ear exam: PRESENT: normal external ear exam Mouth exam: PRESENT: moist, tongue midline Neck exam: ABSENT: tracheal deviation Respiratory exam: PRESENT: decreased breath sounds - left sided. ABSENT: accessory muscle use, symmetrical, unlabored Cardiovascular exam: PRESENT: +S1, +S2 Pulses: PRESENT: +2 pedal pulses bilateral GI/Abdominal exam: PRESENT: normal bowel sounds, soft. ABSENT: tenderness Extremities exam: ABSENT: pedal edema Neurological exam: PRESENT: alert, awake, oriented to person, oriented to place, oriented to time, oriented to situation, CN II-XII grossly intact Skin exam: PRESENT: dry, warm Results Laboratory Results: 07/10/18 07:25 07/10/18 07:25 07/10/18 07/10/18 07:25 07:25 WBC 2.7 L RBC 4.59 Hgb 14.8 Hct 43.3 MCV 94 MCH 32.3 MCHC 34.3 RDW 15.0 H Plt Count 41 L Seg Neutrophils % 66.7 Lymphocytes % 20.2 Monocytes % 11.3 Eosinophils % 1.6 Basophils % 0.2 Absolute Neutrophils 1.8 Absolute Lymphocytes 0.6 Absolute Monocytes 0.3 Absolute Eosinophils 0.0 Absolute Basophils 0.0 Sodium 137.1 Potassium 4.2 Chloride 90 L Carbon Dioxide 46 H* Anion Gap 1 L BUN 14 Creatinine 0.65 Est GFR ( Amer) > 60 Est GFR (Non-Af Amer) > 60 Glucose 113 H Calcium 8.2 L Total Bilirubin 1.8 H AST 106 H ALT 58 Alkaline Phosphatase 106 Total Protein 6.2 L Albumin 2.6 L 07/10/18 07:25 NT-Pro-B Natriuret Pep 122 Impressions: Chest CT 07/08/18 00:00 IMPRESSION: Moderate left-sided pleural effusion with subpleural infiltrate consistent with pneumonia. There is alveolar airspace disease in the right upper lobe and to a lesser extent in the right base most likely pneumonia. Chest X-Ray 07/08/18 05:00 IMPRESSION: Left chest volume loss, pleural thickening/ pleural fluid and lung consolidation. Chest CT with IV contrast recommended for followup. Comparison with any old or outside films recommended. Right lung pulmonary vascular congestion without alveolar edema. Chest Ultrasound 07/09/18 00:00 IMPRESSION: Ultrasound for quantification of pleural effusion. No right pleural effusion. Small left posterior pleural effusion. Assessment & Plan - Diagnosis (1) Acute respiratory failure with hypoxia Is this a current diagnosis for this admission?: Yes (2) Pleural effusion Is this a current diagnosis for this admission?: Yes (3) Pneumonia Qualifiers: Laterality: left Is this a current diagnosis for this admission?: Yes (4) Tobacco abuse Is this a current diagnosis for this admission?: Yes (5) Cirrhosis of liver Qualifiers: Ascites presence: with ascites Is this a current diagnosis for this admission?: Yes (6) Thrombocytopenia Is this a current diagnosis for this admission?: Yes - Plan Summary Plan Summary: acute respiratory failure w/ hypoxia- requiring 5L NC O2- likely due to left sided pleural effusion. see plan below PNA- ct chest showed likely PNA and left sided mod side pleural effusion. he's on azithro/rocephin for CAP, day 4. BCx neg so far. Left pleural effusion- unfortunately given his low platelets we are unable to get thoracentesis- he's lasix 40mg BID to help diurese- unfortunately i don't know if this will work given the size of his effusion. cause of effusion cirrhosis vs malignancy Cirrhosis - 2/2 hep C- has outpatient Gi follow up. c/w aldactone.
--- NOTE | 2018-07-10 17:52 | Progress Note ---
Provider Note Provider Note: thrombocyopenia- noted- likely 2/2 cirrhosis- oncology consulted- appreciated assistance. s/p 1u platelet transfusion- did not go up much - will check labs in AM
[2018-07-11] MEDS: IPRATROPIUM/ALBUTEROL 0.5-2.5 MG/3 ML AMPUL NEB SCH ×4 (02:05→19:53)
[2018-07-11 05:11] LABS: ABSOLUTE EOSINOPHILS # (AUTO) 0.1 10^3/uL (0.0-0.6); ABSOLUTE LYMPHOCYTES (AUTO) 0.8 10^3/uL (0.5-4.7); ABSOLUTE MONOCYTES (AUTO) 0.6 10^3/uL (0.1-1.4); BASOPHILS % (AUTO) 0.5 % (0-2); EOSINOPHILS % (AUTO) 2.8 % (0-6); HEMATOCRIT 46.1 % (37.9-51.0); HEMOGLOBIN 16.1 g/dL (13.5-17.0); LYMPHOCYTES % (AUTO) 18.3 % (13-45); MEAN CORPUSCULAR HEMOGLOBIN 32.8 pg (27.0-33.4); MEAN CORPUSCULAR VOLUME 94 fl (80-97); RED BLOOD COUNT 4.91 10^6/uL (4.35-5.55); SEGMENTED NEUTROPHILS % (AUTO) 65.4 % (42-78); TOTAL CELLS COUNTED % (AUTO) 100 %; WHITE BLOOD COUNT 4.6 10^3/uL (4.0-10.5)
[2018-07-11 05:30] LABS: PLATELET COUNT 45 10^3/uL (150-450)
[2018-07-11 05:31] LABS: ALANINE AMINOTRANSFERASE 63 U/L (21-72); ALKALINE PHOSPHATASE 134 U/L (38-126); ASPARTATE AMINO TRANSFERASE 118 U/L (17-59); BILIRUBIN,DIRECT 0.9 mg/dL (0.0-0.4); BLOOD UREA NITROGEN 13 mg/dL (7-20); CALCIUM 8.4 mg/dL (8.4-10.2); CHLORIDE 91 mmol/L (98-107); GLUCOSE 122 mg/dL (75-110); POTASSIUM 4.5 mmol/L (3.6-5.0); SODIUM 138.4 mmol/L (137-145); TOTAL PROTEIN 6.9 g/dL (6.3-8.2)
[2018-07-11 05:42] LABS: ANION GAP 3 (5-19)
[2018-07-11 05:43] LABS: CARBON DIOXIDE 44 mmol/L (22-30)
[2018-07-11 06:55] LABS: ARTERIAL BLOOD BASE EXCESS 12.8 mmol/L; ARTERIAL BLOOD H2CO3 1.73 mmol/L (1.05-1.35); ARTERIAL BLOOD HCO3 39.8 mmol/L (20-24); ARTERIAL BLOOD O2 SATURATION 91.9 % (94-98); ARTERIAL BLOOD PCO2 57.6 mmHg (35-45); ARTERIAL BLOOD PH 7.46 (7.35-7.45); ARTERIAL BLOOD PO2 60.7 mmHg (80-100); ARTERIAL BLOOD TOTAL CO2 41.5 mmol/L (23-27)
[2018-07-11 06:56] LABS: ARTERIAL BLOOD FIO2 5L
[2018-07-11] MEDS ORDERED: NORMAL SALINE 250 ML IV PRN ×2 (08:29)
[2018-07-11] MEDS: LACTULOSE SYRUP 20 GM/30 ML UDCUP PO SCH (09:22)
[2018-07-11] MEDS: METHADONE HCL 10 MG TABLET PO PRN ×2 (09:22→22:24)
[2018-07-11] MEDS: SPIRONOLACTONE 25 MG TABLET PO SCH (09:22)
[2018-07-11] MEDS: FAMOTIDINE 20 MG TABLET PO SCH ×2 (09:23→22:24)
[2018-07-11] MEDS: AZITHROMYCIN 250 MG TABLET PO SCH (09:23)
[2018-07-11] MEDS: GUAIFENESIN 600 MG TABLET.SA PO SCH ×2 (09:23→22:24)
[2018-07-11] MEDS: FUROSEMIDE 40 MG TABLET PO SCH (09:23)
[2018-07-11] MEDS: CEFTRIAXONE 1 GM/D5W RTU 1 GM/50 ML RTUPB IV SCH (14:52)
[2018-07-11] MEDS: TIOTROPIUM BROMIDE DPI 5 CAP/KIT (18 MCG/CAP) IH SCH (14:53)
--- NOTE | 2018-07-11 18:24 | PDOC PROGRESS REPORT ---
Subjective Progress Note for:: 07/11/18 Subjective:: went to see patient this morning- but he was sleeping. so came back this evening. he wants to go home. he's on 4L. i told him i can't send him home on so much oxygen and he tells me that he walked around today without oxygen and he had no SOB. states he doesn't need oxygen and he feel fine- tells me that nursing keeps putting oxygen on him. see A&P. Reason For Visit: ACUTE RESPIRATORY FAILURE,PLEURAL EFFUSION,COPD Physical Exam Vital Signs: Temp Pulse Resp BP Pulse Ox 98.1 F 79 16 130/63 H 93 07/11/18 12:00 07/11/18 13:28 07/11/18 13:28 07/11/18 12:00 07/11/18 13:28 Intake & Output 07/10/18 07/11/18 07/12/18 06:59 06:59 06:59 Intake Total 1450 2339 282 Output Total 2510 2000 Balance -1060 339 282 Weight 268 lb 4.841 oz 271 lb 6.224 oz General appearance: PRESENT: no acute distress Head exam: PRESENT: atraumatic, normocephalic Eye exam: PRESENT: EOMI. ABSENT: conjunctival injection, scleral icterus Ear exam: PRESENT: normal external ear exam Mouth exam: PRESENT: moist, tongue midline Neck exam: ABSENT: tracheal deviation Respiratory exam: PRESENT: decreased breath sounds - bilaterally at the bases, symmetrical Cardiovascular exam: PRESENT: +S1, +S2 Pulses: PRESENT: +2 pedal pulses bilateral GI/Abdominal exam: PRESENT: normal bowel sounds, soft. ABSENT: tenderness Extremities exam: PRESENT: +2 edema - b/l LE edema Neurological exam: PRESENT: alert, awake, oriented to person, oriented to place, oriented to time, CN II-XII grossly intact Skin exam: PRESENT: dry, warm Results Laboratory Results: 07/11/18 04:35 07/11/18 04:35 07/08/18 07/11/18 07/11/18 16:10 04:35 04:35 WBC 4.6 RBC 4.91 Hgb 16.1 Hct 46.1 MCV 94 MCH 32.8 MCHC 35.0 RDW 15.0 H Plt Count 45 L Seg Neutrophils % 65.4 Lymphocytes % 18.3 Monocytes % 13.0 Eosinophils % 2.8 Basophils % 0.5 Absolute Neutrophils 3.0 Absolute Lymphocytes 0.8 Absolute Monocytes 0.6 Absolute Eosinophils 0.1 Absolute Basophils 0.0 Carbonic Acid HCO3/H2CO3 Ratio ABG pH ABG pCO2 ABG pO2 ABG HCO3 ABG O2 Saturation ABG Base Excess FiO2 Sodium 138.4 Potassium 4.5 Chloride 91 L Carbon Dioxide 44 H* Anion Gap 3 L BUN 13 Creatinine 0.68 Est GFR ( Amer) > 60 Est GFR (Non-Af Amer) > 60 Glucose 122 H Calcium 8.4 Magnesium 1.6 Total Bilirubin 2.0 H AST 118 H ALT 63 Alkaline Phosphatase 134 H Total Protein 6.9 Albumin 3.0 L Blood Type O POSITIVE 07/11/18 06:35 WBC RBC Hgb Hct MCV MCH MCHC RDW Plt Count Seg Neutrophils % Lymphocytes % Monocytes % Eosinophils % Basophils % Absolute Neutrophils Absolute Lymphocytes Absolute Monocytes Absolute Eosinophils Absolute Basophils Carbonic Acid 1.73 H HCO3/H2CO3 Ratio 23:1 ABG pH 7.46 H ABG pCO2 57.6 H ABG pO2 60.7 L ABG HCO3 39.8 H ABG O2 Saturation 91.9 L ABG Base Excess 12.8 FiO2 5L Sodium Potassium Chloride Carbon Dioxide Anion Gap BUN Creatinine Est GFR ( Amer) Est GFR (Non-Af Amer) Glucose Calcium Magnesium Total Bilirubin AST ALT Alkaline Phosphatase Total Protein Albumin Blood Type 07/06/18 17:05 Blood Blood Culture - Final NO GROWTH IN 5 DAYS 07/10/18 07:25 NT-Pro-B Natriuret Pep 122 Impressions: Chest CT 07/08/18 00:00 IMPRESSION: Moderate left-sided pleural effusion with subpleural infiltrate consistent with pneumonia. There is alveolar airspace disease in the right upper lobe and to a lesser extent in the right base most likely pneumonia. Chest X-Ray 07/08/18 05:00 IMPRESSION: Left chest volume loss, pleural thickening/ pleural fluid and lung consolidation. Chest CT with IV contrast recommended for followup. Comparison with any old or outside films recommended. Right lung pulmonary vascular congestion without alveolar edema. Chest Ultrasound 07/09/18 00:00 IMPRESSION: Ultrasound for quantification of pleural effusion. No right pleural effusion. Small left posterior pleural effusion. Assessment & Plan - Diagnosis (1) Acute respiratory failure with hypoxia Is this a current diagnosis for this admission?: Yes (2) Pleural effusion Is this a current diagnosis for this admission?: Yes (3) Pneumonia Qualifiers: Laterality: left Is this a current diagnosis for this admission?: Yes (4) Tobacco abuse Is this a current diagnosis for this admission?: Yes (5) Cirrhosis of liver Qualifiers: Ascites presence: with ascites Is this a current diagnosis for this admission?: Yes (6) Thrombocytopenia Is this a current diagnosis for this admission?: Yes - Plan Summary Plan Summary: acute respiratory failure w/ hypoxia- requiring 4L NC O2- likely due to left sided pleural effusion. he's on 4L. i told him i can't send him home on so much oxygen and he tells me that he walked around today without oxygen and he had no SOB. states he doesn't need oxygen and he feel fine- tells me that nursing keeps putting oxygen on him. i spoke with nursing later on- nursing tells me that patient is very unsteady on gait- per nursing he drops below 88% on RA and he has NOT been walking at all. per nursing he's not being honest with me. I will speak with patient about this in AM. PNA- ct chest showed likely PNA and left sided mod side pleural effusion. he's on azithro/rocephin for CAP, day 5 today- will d/c ABx at this time. BCx neg so far. Left pleural effusion- unfortunately given his low platelets we are unable to get thoracentesis- he's lasix 40mg to help diurese- unfortunately i don't know if this will work given the size of his effusion. cause of effusion cirrhosis vs malignancy. see plan for thrombocytopenia. I have also spoke with dr Freeman about him- he will evaluate patient later today- appreciate his assistance Cirrhosis - 2/2 hep C- has outpatient Gi follow up. c/w aldactone and lasix Thrombocytopenia- i have transfused him another 1u platelets in the hopes that if his platelets improve then maybe we can get thoracentesis to help with his breathing. will check CBC in AM.
--- NOTE | 2018-07-11 22:03 | XCELERA REPORT ---
[address] [address] Transthoracic Echocardiogram Report Name: DONTAE RODRIGUEZ Age: 53 yrs Gender: Male : 1965 Patient Status: Inpatient Patient Location: [address] [place] [address] Study Date: 07/10/2018 09:44 AM Height: 75 in Weight: 270 lb BSA: 2.5 m2 Procedure: A two-dimensional transthoracic echocardiogram with color flow and Doppler was performed. The study was technically difficult with many images being suboptimal in quality. The study was technically limited with all images being suboptimal in quality. Reason For Study: Pleural Effusion r/o cardiac causes History: Pleural Effusion r / Heart Failure. Ordering Physician: LILIANA ALLISON Performed By: Javier Cooper Interpretation Summary The left ventricle is normal in size. There is normal left ventricular wall thickness. LV EF is 65% The left ventricular ejection fraction is normal. Doppler measurements suggest impaired left ventricular relaxation, which is associated with grade I/IV or mild diastolic dysfunction The left ventricular wall motion is normal. The right ventricle is not well visualized secondary to technical limitations The right atrium is normal. The left atrial size is normal. There is no evidence of mitral valve prolapse. There is no vegetation seen on the mitral valve. There is no mitral valve stenosis. There is a trace amount of mitral regurgitation There is no aortic valve stenosis No aortic regurgitation is present. There is no tricuspid stenosis. There is a trace to mild amount of tricuspid regurgitation There is mild pulmonary hypertension by echo RVSP is6 to 41 mm of Hg , with RA mean of 0 to 5. There is no pulmonic valvular stenosis. There is no pulmonic valvular regurgitation. The aortic root is normal size. The inferior vena cava appeared small and collapsed with respiration (RAP 0-5 mmHg) There is no pericardial effusion. MMode/2D Measurements & Calculations RVDd: 2.7 cm LVIDd: 4.7 cm FS: 36.0 % Ao root diam: 2.6 cm IVSd: 1.1 cm LVIDs: 3.0 cm EDV(Teich): 102.3 ml Ao root area: 5.1 cm2 LVPWd: 1.1 cm ESV(Teich): 35.1 ml LA dimension: 3.6 cm EF(Teich): 65.6 % Doppler Measurements & Calculations MV E max marco: MV P1/2t max marco: Ao V2 max: LV V1 max P.1 cm/sec 91.7 cm/sec 143.6 cm/sec 3.7 mmHg MV A max marco: MV P1/2t: 68.7 msec Ao max P.2 mmHg LV V1 max: 95.7 cm/sec MVA(P1/2t): 3.2 cm2 96.6 cm/sec MV E/A: 0.87 MV dec slope: 390.7 cm/sec2 MV dec time: 0.18 sec PA V2 max: TR max marco: MV P1/2t-pr_phl: 121.2 cm/sec 300.1 cm/sec 68.7 msec PA max P.9 mmHgTR max P.0 mmHg Left Ventricle The left ventricle is normal in size. There is normal left ventricular wall thickness. LV EF is 65%. The left ventricular ejection fraction is normal. Doppler measurements suggest impaired left ventricular relaxation, which is associated with grade I/IV or mild diastolic dysfunction. The left ventricular wall motion is normal. Right Ventricle The right ventricle is not well visualized secondary to technical limitations. Atria The right atrium is normal. The left atrial size is normal. Mitral Valve There is no evidence of mitral valve prolapse. There is no vegetation seen on the mitral valve. There is no mitral valve stenosis. There is a trace amount of mitral regurgitation. Aortic Valve There is no aortic valve stenosis. No aortic regurgitation is present. Tricuspid Valve There is no tricuspid stenosis. There is a trace to mild amount of tricuspid regurgitation. There is mild pulmonary hypertension by echo. RVSP is6 to 41 mm of Hg , with RA mean of 0 to 5. Pulmonic Valve There is no pulmonic valvular stenosis. There is no pulmonic valvular regurgitation. Great Vessels The aortic root is normal size. The inferior vena cava appeared small and collapsed with respiration (RAP 0-5 mmHg). Effusions There is no pericardial effusion. : LILIANA ALLISON > Isa Alonso
[2018-07-12] MEDS: IPRATROPIUM/ALBUTEROL 0.5-2.5 MG/3 ML AMPUL NEB SCH ×3 (01:31→13:48)
[2018-07-12] MEDS: METHADONE HCL 10 MG TABLET PO PRN (05:34)
[2018-07-12 08:57] LABS: ABSOLUTE EOSINOPHILS # (AUTO) 0.2 10^3/uL (0.0-0.6); ABSOLUTE LYMPHOCYTES (AUTO) 0.7 10^3/uL (0.5-4.7); ABSOLUTE MONOCYTES (AUTO) 0.6 10^3/uL (0.1-1.4); ABSOLUTE NEUT (AUTO) 3.1 10^3/uL (1.7-8.2); BASOPHILS % (AUTO) 0.4 % (0-2); EOSINOPHILS % (AUTO) 3.5 % (0-6); HEMATOCRIT 46.9 % (37.9-51.0); HEMOGLOBIN 16.3 g/dL (13.5-17.0); LYMPHOCYTES % (AUTO) 15.3 % (13-45); MEAN CORPUSCULAR HEMOGLOBIN 32.3 pg (27.0-33.4); MEAN CORPUSCULAR HGB CONC 34.8 g/dL (32.0-36.0); MEAN CORPUSCULAR VOLUME 93 fl (80-97); RED BLOOD COUNT 5.05 10^6/uL (4.35-5.55); RED CELL DISTRIBUTION WIDTH 15.2 % (11.5-14.0); SEGMENTED NEUTROPHILS % (AUTO) 66.8 % (42-78); TOTAL CELLS COUNTED % (AUTO) 100 %; WHITE BLOOD COUNT 4.6 10^3/uL (4.0-10.5)
[2018-07-12 09:09] LABS: ANION GAP 7 (5-19); BLOOD UREA NITROGEN 12 mg/dL (7-20); CALCIUM 8.2 mg/dL (8.4-10.2); CARBON DIOXIDE 39 mmol/L (22-30); CHLORIDE 91 mmol/L (98-107); GLUCOSE 194 mg/dL (75-110); POTASSIUM 3.8 mmol/L (3.6-5.0); SODIUM 136.7 mmol/L (137-145)
[2018-07-12] MEDS: CEFTRIAXONE 1 GM/D5W RTU 1 GM/50 ML RTUPB IV SCH (09:34)
[2018-07-12] MEDS: FAMOTIDINE 20 MG TABLET PO SCH (09:34)
[2018-07-12] MEDS: LACTULOSE SYRUP 20 GM/30 ML UDCUP PO SCH (09:34)
[2018-07-12] MEDS: FUROSEMIDE 40 MG TABLET PO SCH (09:34)
[2018-07-12] MEDS: GUAIFENESIN 600 MG TABLET.SA PO SCH (09:34)
[2018-07-12] MEDS: SPIRONOLACTONE 25 MG TABLET PO SCH (09:34)
[2018-07-12] MEDS: TIOTROPIUM BROMIDE DPI 5 CAP/KIT (18 MCG/CAP) IH SCH (09:35)
[2018-07-12 09:58] LABS: PLATELET COUNT 58 10^3/uL (150-450)
[2018-07-12 14:46] VITALS: BP 124/75
--- NOTE | 2018-07-12 16:02 | PDOC DISCHARGE SUMMARY ---
General - Admit/Disc Date/PCP Admission Date/Primary Care Provider: 07/07/18 12:32 CONNER OSULLIVAN PA-C Discharge Date: 07/12/18 - Discharge Diagnosis (1) Acute respiratory failure with hypoxia Is this a current diagnosis for this admission?: Yes (2) Pleural effusion Is this a current diagnosis for this admission?: Yes (3) Pneumonia Is this a current diagnosis for this admission?: Yes (4) Tobacco abuse Is this a current diagnosis for this admission?: Yes (5) Cirrhosis of liver Is this a current diagnosis for this admission?: Yes (6) Thrombocytopenia Is this a current diagnosis for this admission?: Yes - Additional Information Resuscitation Status: Full Code Discharge Diet: As Tolerated Discharge Activity: Activity As Tolerated, Balance Activity w/Rest Prescriptions: Albuterol Sulfate [Ventolin Hfa 8 gm Mdi (1 Mdi/ER Disp)] 2 puff IH Q4H PRN #1 inhaler PRN Reason: Amox Tr/Potassium Clavulanate [Augmentin 875-125 mg Tablet] 1 tab PO BID 5 Days #10 tablet Budesonide/Formoterol Fumarate [Symbicort Hfa 80-4.5 Mcg Inhaler 6.9 gm] 2 puff IH BID #1 inhaler Home Medications: Lactulose [Cephulac Syrup 20 gm/30 ml Udcup] 30 ml PO QID 10/17/17 Methadone HCl 10 mg PO Q6HP PRN 10/17/17 Oxycodone HCl/Acetaminophen [Percocet 5-325 mg Tablet] 1 tab PO Q6HP PRN 10/17/17 Furosemide [Lasix 40 mg Tablet] 60 mg PO DAILY 07/06/18 Spironolactone [Aldactone 100 mg Tablet] 100 mg PO DAILY 07/06/18 Albuterol Sulfate [Ventolin Hfa 8 gm Mdi (1 Mdi/ER Disp)] 2 puff IH Q4H PRN #1 inhaler 07/12/18 Amox Tr/Potassium Clavulanate [Augmentin 875-125 mg Tablet] 1 tab PO BID 5 Days #10 tablet 07/12/18 Budesonide/Formoterol Fumarate [Symbicort Hfa 80-4.5 Mcg Inhaler 6.9 gm] 2 puff IH BID #1 inhaler 07/12/18 Spironolactone [Aldactone 25 mg Tablet] 100 mg PO DAILY tablet 07/12/18 History of Present Illness History of Present Illness: DONTAE RODRIGUEZ is a 53 year old male admitted for shortness of breath and suspected pneumonia. Please see initial H&P for full assessment and plan Hospital Course Hospital Course: 53-year-old male admitted for shortness of breath and pleuritic chest pain associated with dry cough and fever. After admission he was started on empiric IV antibiotics with Rocephin and azithromycin and started on supplemental oxygen. It was also felt that he has a history of COPD and he is in COPD exacerbation. He does have a history of hepatitis C leading to cirrhosis of the liver and he does follow-up with GI specialist outpatient. He was found to have thrombocytopenia which most likely correlates with his cirrhosis of the liver. Due to increased need for oxygen a CT chest was ordered and it showed a moderate left-sided pleural effusion and a subpleural infiltrate consistent with pneumonia. There was also some concerning airspace disease of the right side. Ultrasound was done to evaluate this pleural effusion but showed only a small amount. Given that he has thrombocytopenia and small amount of fluid seen on ultrasound a thoracentesis was not performed. Pulmonology was consulted and felt that at this time the risks are higher than the benefits. An echocardiogram was performed and showed an ejection fraction of greater than 65% with a grade 1/4 or mild diastolic dysfunction. Oncology was also consulted for this patient due to thrombocytopenia. Patient did receive 2 units of platelet transfusion and it was felt this is likely due to his cirrhosis. He did not have any history of bleeding. He was recommended to follow-up outpatient with GI His oxygen was weaned but he continued to require 3 L to keep him greater than 92%. He was dropping to less than 88% on room air. Case management and discharge plan were consulted and they arranged oxygen at home. I spoke with enchilada maker Dr. Rios today and he felt that patient should go home on oxygen and follow-up outpatient for resolution of pulmonary effusion. Advised patient to follow-up with enchilada maker within 1-2 weeks. He also needs to follow-up with his PCP within 1 week. I will discharge patient with antibiotics. I saw patient this morning and he states he feels much better and denies any new acute symptoms at this time. He has been asking for me to discharge him for the last 2 days and I was concerned about his pleural effusion and hence held off on discharge. I spoke with pulmonology this morning and they are comfortable with discharging on oxygen. I gave him discharge instructions as stated below and he verbalized under standing. start taking symbicort twice a day start taking antibiotics daily as prescribed start using albuterol inhaler as needed for shortness of breath every 4 hours follow up with PCP within 1 week Follow up with enchilada maker within 1-2 weeks regarding your pleural effusion continue using oxygen- talk to your PCP about this. Physical Exam Vital Signs: Temp Pulse Resp BP Pulse Ox 98.5 F 93 18 124/75 88 L 07/12/18 14:44 07/12/18 14:44 07/12/18 14:44 07/12/18 14:44 07/12/18 14:44 Intake & Output 07/11/18 07/12/18 07/13/18 06:59 06:59 06:59 Intake Total 2339 637 50 Output Total 2000 200 Balance 339 437 50 Weight 271 lb 6.224 oz General appearance: PRESENT: no acute distress Head exam: PRESENT: atraumatic, normocephalic Eye exam: PRESENT: EOMI. ABSENT: conjunctival injection, scleral icterus Ear exam: PRESENT: normal external ear exam Mouth exam: PRESENT: moist, tongue midline Neck exam: ABSENT: tracheal deviation Respiratory exam: PRESENT: decreased breath sounds - Bilaterally and mostly of the bases, symmetrical, wheezes - Occasional Cardiovascular exam: PRESENT: +S1, +S2 Pulses: PRESENT: +2 pedal pulses bilateral GI/Abdominal exam: PRESENT: normal bowel sounds, soft. ABSENT: tenderness Extremities exam: PRESENT: other - Severe scoliosis of the back. ABSENT: pedal edema Neurological exam: PRESENT: alert, awake, oriented to person, oriented to place, oriented to time, CN II-XII grossly intact Skin exam: PRESENT: dry, warm Results Laboratory Results: 07/12/18 08:29 07/12/18 08:29 07/12/18 07/12/18 08:29 08:29 WBC 4.6 RBC 5.05 Hgb 16.3 Hct 46.9 MCV 93 MCH 32.3 MCHC 34.8 RDW 15.2 H Plt Count 58 L Seg Neutrophils % 66.8 Lymphocytes % 15.3 Monocytes % 14.0 H Eosinophils % 3.5 Basophils % 0.4 Absolute Neutrophils 3.1 Absolute Lymphocytes 0.7 Absolute Monocytes 0.6 Absolute Eosinophils 0.2 Absolute Basophils 0.0 Sodium 136.7 L Potassium 3.8 Chloride 91 L Carbon Dioxide 39 H Anion Gap 7 BUN 12 Creatinine 0.57 Est GFR ( Amer) > 60 Est GFR (Non-Af Amer) > 60 Glucose 194 H Calcium 8.2 L 07/06/18 19:35 Blood Blood Culture - Final NO GROWTH IN 5 DAYS 07/06/18 17:05 Blood Blood Culture - Final NO GROWTH IN 5 DAYS 07/10/18 07:25 NT-Pro-B Natriuret Pep 122 Impressions: Chest CT 07/08/18 00:00 IMPRESSION: Moderate left-sided pleural effusion with subpleural infiltrate consistent with pneumonia. There is alveolar airspace disease in the right upper lobe and to a lesser extent in the right base most likely pneumonia. Chest X-Ray 07/08/18 05:00 IMPRESSION: Left chest volume loss, pleural thickening/ pleural fluid and lung consolidation. Chest CT with IV contrast recommended for followup. Comparison with any old or outside films recommended. Right lung pulmonary vascular congestion without alveolar edema. Chest Ultrasound 07/09/18 00:00 IMPRESSION: Ultrasound for quantification of pleural effusion. No right pleural effusion. Small left posterior pleural effusion. Qualifiers - * PATIENT BEING DISCHARGED WITH ANY OF THE FOLLOWING DIAGNOSIS: No
--- NOTE | 2018-07-14 10:16 | PROGRESS NOTE E ---
Progress Note NAME: DONTAE RODRIGUEZ : 1965 AGE: 53Y DATE: 07/11/2018 ROOM: 409 SUBJECTIVE: The patient is a 53-year-old male who came with pneumonia, pleural effusion, liver cirrhosis, and severe thrombocytopenia. Has been treated with IV Rocephin over the last few days. Appears to be responding. There is no spike of fever for the last 3 or 4 hours. No worsening leukocytosis. White blood cell count and CBC appeared to be normal over the last few days. Claims a history of coughing yellow/green phlegm and sometimes blood tinged. Also had nose bleeding eery now and then, especially with blowing his nose. Claimed that he is feeling a lot better. No chest pain. No worsening dyspnea. Wants to know when he can go home. No nausea, vomiting, diarrhea. OBJECTIVE: GENERAL: The patient is awake, alert, coherent, oriented x3. VITAL SIGNS: Temperature is 98.1, with a T-max of 98.1. Blood pressure is 130/63. Heart rate is 79, respirations 16, saturation 93% on 4 L nasal cannula. EYES: No jaundice or pallor. EARS, NOSE, AND THROAT: No ear drainage. No nasal discharge. CHEST AND LUNGS: No wheezing. No rhonchi. No coarse crackles. CARDIOVASCULAR: S1, S2 distinct. Normal rate and regular rhythm. ABDOMEN: Flabby. Positive bowel sounds. Soft, nondistended. EXTREMITIES: No joint swelling. No cellulitis. LABORATORY DATA: CBC done today showed WBC count of 4.6, better than yesterday. Hemoglobin 16.1. Hematocrit is 46.1. Platelet count is 45. ABG done today showed pH 7.46, PCO2 of 57.6, PO2 is 60, bicarb is 91.1. Chemistry today showed sodium is 138, potassium 4.5, chloride 91, CO2 is 44, BUN 13, creatinine 0.68, glucose 132, calcium is 8.4, magnesium is 1.6. Total bilirubin is 2, direct bilirubin is 0.9. SGOT is 118 and SGPT is 63. Alkaline phosphatase is 134. Albumin is 3.0. ASSESSMENT: 1. PNEUMONIA, LEFT LOWER LOBE. Appears to be clinically improving. No leukocytosis and no fever spikes for the last 3-4 hours. 2. HYPOXEMIA, currently requiring 4 L of oxygen therapy. Most likely due to hepatic pulmonary syndrome due to liver cirrhosis. 3. PLEURAL EFFUSION, MOST LIKELY LOCULATED. Chest ultrasound showed minimal pleural effusion on the left side. Not a candidate for pleural decortication. High mortality risk for thoracic surgery. 4. HISTORY OF LIVER CIRRHOSIS DUE TO CHRONIC ACTIVE HEPATITIS C WITH SEVERE THROMBOCYTOPENIA. Recommend GI evaluation and further management. PLAN/RECOMMENDATIONS: 1. Continue antibiotics. The patient may be able to go home on Levaquin 500 mg tablet p.o. daily for another 10 days. 2. Home oxygen therapy evaluation by respiratory therapist. 3. Recommend GI evaluation and followup. 4. Recommend pulmonary clinic followup in 3-4 weeks following hospital discharge. DICTATING PHYSICIAN: GEREMIAS NUÑEZ MD,CT,MPH [id number] PHY#: [id number] 2015 ID: [id number] JOB#: [id number] ACCT: [id number] cc: > MTDD
== END 2018-07-12 15:39 | disposition home health service (06) | DRG 189 ==
LOC: ER 16:41 → EH 18:32 → INTOOBSV 18:32 → 4N 07-07 00:05 → OBSVTOIN 07-07 12:32
PROVIDERS: ADMIT Family Medicine; ATTEND Family Medicine
PROC: 5A09457 Assistance with Respiratory Ventilation, 24-96 Consecutive Hours, Continuous Positive Airway Pressure (ICD-10-PCS; principal; 2018-07-06)
PROC: 3E0F73Z Introduction of Anti-inflammatory into Respiratory Tract, Via Natural or Artificial Opening (ICD-10-PCS; 2018-07-07)
PROC: 30233R1 Transfusion of Nonautologous Platelets into Peripheral Vein, Percutaneous Approach (ICD-10-PCS; 2018-07-08)
DX: J96.01 Acute respiratory failure with hypoxia (principal); J18.9 Pneumonia, unspecified organism; J44.1 Chronic obstructive pulmonary disease with (acute) exacerbation; R18.8 Other ascites; F11.20 Opioid dependence, uncomplicated; J44.0 Chronic obstructive pulmonary disease with (acute) lower respiratory infection; D69.59 Other secondary thrombocytopenia; K74.60 Unspecified cirrhosis of liver; F17.210 Nicotine dependence, cigarettes, uncomplicated; Z79.899 Other long term (current) drug therapy; Z86.19 Personal history of other infectious and parasitic diseases; Z79.2 Long term (current) use of antibiotics
CPT/HCPCS: 36415; 36430; 36600; 71045; 71260; 76604; 80048; 80053; 82803; 83735; 83880; 85025; 85610; 85730; 86900; 86901; 87040; 87070; 87880; 93306; 94640; 94660; 94667; 94668; 96361; 96365; 96375; 99285; G0378; J0456; J0610; J0696; J2930; J3430; J3490; J7030; J7620; P9035

== ENCOUNTER 2018-08-10 09:12 | Observation (INO) | payer MEDICARE ==
[2018-08-10] MEDS ORDERED: GUAIFENESIN 600 MG TABLET.SA PO ONE (10:34)
[2018-08-10] MEDS ORDERED: IPRATROPIUM/ALBUTEROL 0.5-2.5 MG/3 ML AMPUL NEB ONE (10:34)
[2018-08-10] MEDS ORDERED: BUDESONIDE NEB 0.5 MG/2 ML AMPUL NEB ONE (10:34)
--- NOTE | 2018-08-10 10:36 | ER Document Report ---
ED Medical Screen (RME) - General Chief Complaint: Shortness Of Breath Stated Complaint: DIFFICULTY BREATHING Time Seen by Provider: 08/10/18 10:27 Primary Care Provider: DAVID,EMPLOYEE [Primary Care Provider] - Follow up as needed Notes: Patient is a 53-year-old male with recent diagnosis of COPD that presents to the emergency department for chief complaint of shortness of breath and cough. Patient reports recently being followed up with his primary care, and at that time he had a chest x-ray performed demonstrated a large pleural effusion, he declined to go to the hospital at that time, decided to wait until today, he is been more short of breath and had a productive cough. Does have hepatitis C, history of thrombocytopenia. ROS: Other than noted above, the 12 point review of systems was reviewed with the patient and were negative, all pertinent findings are included in the HPI. PHYSICAL EXAMINATION: Vital signs reviewed. GENERAL: Chronically ill-appearing male HEAD: Atraumatic, normocephalic. EYES: Pupils equal round extraocular movements intact, conjunctiva are normal. ENT: Nares patent NECK: Normal range of motion CV: Heart regular rate and rhythm LUNGS: Rhonchorous lung sounds throughout Musculoskeletal: Normal range of motion NEUROLOGICAL: Normal speech PSYCH: Normal mood, normal affect. MDM: Patient seen and examined for rapid initial assessment. Vital signs reviewed. A comprehensive ED assessment and evaluation of the patient, analysis of test results and completion of the medical decision making process will be conducted by additional ED providers. *Note is created using voice recognition software and may contain spelling, syntax or grammatical errors. TRAVEL OUTSIDE OF THE [place] IN LAST 30 DAYS: No - Related Data Allergies/Adverse Reactions: No Known Allergies Allergy (Verified 08/10/18 09:14) Past Medical History Pulmonary Medical History: Reports: Hx COPD Renal/ Medical History: Denies: Hx Peritoneal Dialysis GI Medical History: Reports: Hx Cirrhosis, Hx Hepatitis Infectious Medical History: Reports: Hx Hepatitis Past Surgical History: Reports: Hx Orthopedic Surgery - back - Immunizations Hx Diphtheria, Pertussis, Tetanus Vaccination: Yes History of Influenza Vaccine for 03/2017 - 08/2017 Season: Refused Physical Exam - Vital signs Vitals: Temp Pulse Resp BP Pulse Ox 98.1 F 76 20 142/52 H 94 08/10/18 09:29 08/10/18 09:29 08/10/18 09:29 08/10/18 09:29 08/10/18 09:29 Course - Vital Signs Vital signs: Temp Pulse Resp BP Pulse Ox 98.1 F 76 20 142/52 H 94 08/10/18 09:29 08/10/18 09:29 08/10/18 09:29 08/10/18 09:29 08/10/18 09:29 Doctor's Discharge - Discharge Referrals: HEALTH,EMPLOYEE [Primary Care Provider] - Follow up as needed
[2018-08-10 11:21] LABS: ABSOLUTE EOSINOPHILS # (AUTO) 0.1 10^3/uL (0.0-0.6); ABSOLUTE LYMPHOCYTES (AUTO) 0.6 10^3/uL (0.5-4.7); ABSOLUTE MONOCYTES (AUTO) 0.2 10^3/uL (0.1-1.4); ABSOLUTE NEUT (AUTO) 1.8 10^3/uL (1.7-8.2); BASOPHILS % (AUTO) 0.6 % (0-2); EOSINOPHILS % (AUTO) 3.4 % (0-6); HEMATOCRIT 43.4 % (37.9-51.0); LYMPHOCYTES % (AUTO) 23.1 % (13-45); MEAN CORPUSCULAR HEMOGLOBIN 32.7 pg (27.0-33.4); MEAN CORPUSCULAR HGB CONC 34.6 g/dL (32.0-36.0); MEAN CORPUSCULAR VOLUME 94 fl (80-97); MONOCYTES % (AUTO) 8.3 % (3-13); RED CELL DISTRIBUTION WIDTH 16.6 % (11.5-14.0); SEGMENTED NEUTROPHILS % (AUTO) 64.6 % (42-78); TOTAL CELLS COUNTED % (AUTO) 100 %; WHITE BLOOD COUNT 2.7 10^3/uL (4.0-10.5)
--- NOTE | 2018-08-10 11:23 | RADIOLOGY REPORT (SQ) ---
EXAM DESCRIPTION: CHEST SINGLE VIEW COMPLETED DATE/TIME: 08/10/2018 11:12 am REASON FOR STUDY: shortness of breath COMPARISON: 07/08/2018 EXAM PARAMETERS: NUMBER OF VIEWS: One view. TECHNIQUE: Single frontal radiographic view of the chest acquired. RADIATION DOSE: NA LIMITATIONS: None. FINDINGS: LUNGS AND PLEURA: Chronic left pleural effusion and associated airspace disease. The righ t lung is clear. MEDIASTINUM AND HILAR STRUCTURES: Stable. HEART AND VASCULAR STRUCTURES: Stable heart size. Normal vasculature. BONES: No acute findings. HARDWARE: None in the chest. OTHER: No other significant finding. IMPRESSION: Chronic left pleural effusion and associated airspace disease. TECHNICAL DOCUMENTATION: JOB ID: [id number] [employer]- All Rights Reserved Reading location - IP/workstation name: [email or web address] ALICE
[2018-08-10 11:26] LABS: INTERNATIONAL RATION (INR) 1.26; PROTHROMBIN TIME 16.4 SEC (11.4-15.4)
[2018-08-10 11:47] LABS: PLATELET COUNT 81 10^3/uL (150-450)
--- NOTE | 2018-08-10 12:13 | ER Document Report ---
ED General - General Chief Complaint: Shortness Of Breath Stated Complaint: DIFFICULTY BREATHING Time Seen by Provider: 08/10/18 10:27 Primary Care Provider: HEALTH,EMPLOYEE [ACTIVE STAFF] - Follow up as needed TRAVEL OUTSIDE OF THE [place] IN LAST 30 DAYS: No - HPI Notes: Patient is a 53-year-old male that presents to the emergency department for chief complaint of shortness of breath. Patient presents the ER complaining of increased shortness of breath and dyspnea. He states that he was admitted to the hospital about a month ago for pneumonia. He was told he had a small pleural effusion from the pneumonia when he was discharged. Patient followed with his primary care provider on Friday of last week and was told the effusion had become large and was instructed to go to the emergency room. Patient waited until today to come in. He reports being conversationally dyspneic and having increasingly low oxygen levels. He was started on 3 L nasal cannula oxygen at discharge from the hospital. He has been wearing his home 3 L and states that with any exertion he will have a pulse ox in the high 80s. 88 was the lowest he had seen at home. He denies any chest pa in but states he feels some pressure where the effusion is. He denies any palpitations, syncope, fevers and chills. He is still coughing but reports minimal sputum. Patient states he was also recently diagnosed with COPD but has not been prescribed albuterol rescue inhaler. He was prescribed Spiriva but has not had it filled because it would reportedly cost $400. Past Medical History: COPD, hepatitis C, thrombocytopenia Past Surgical History: Reviewed in chart Social History: Former smoker quit during last admission at hospital. Denies alcohol or drug use Family History: Reviewed and noncontributory for presenting illness Allergies: Reviewed, see documented allergy list. REVIEW OF SYSTEMS: CONSTITUTIONAL : No fever No chills No diaphoresis No recent illness EENT: No vision changes congestion No sore throat CARDIOVASCULAR: No chest pain No palpitations RESPIRATORY: shortness of breath cough difficulty breathing GASTROINTESTINAL: No abdominal pain No nausea No vomiting No diarrhea GENITOURINARY: No dysuria No hematuria No difficulty urinating MUSCULOSKELETAL: No back pain No leg pain No arm pain SKIN: No rashes No lesions LYMPHATIC: No swollen, enlarged glands. NEUROLOGICAL: No lightheadedness No headache No weakness No paresthesias PSYCHIATRIC: No anxiety No depression PHYSICAL EXAMINATION: Vital signs reviewed, nursing noted reviewed. GENERAL: Well-appearing, well-nourished and in no acute distress. HEAD: Atraumatic, normocephalic. EYES: Eyes appear normal, extraocular movements intact, sclera anicteric, c onjunctiva are normal. ENT: nares patent, oropharynx clear without exudates. Moist mucous membranes. NECK: Normal range of motion, supple without lymphadenopathy LUNGS: Breath sounds diminished bilaterally, left greater than right, with expiratory wheezing. No tachypnea or accessory muscle use HEART: Regular rate and rhythm without murmurs ABDOMEN: Protuberant, soft, nontender, normoactive bowel sounds. No rebound, guarding, or rigidity. No masses appreciated. EXTREMITIES: Nontender, good range of motion, no pitting or edema. NEUROLOGICAL: No focal neurological deficits. Moves all extremities spontaneously Motor and sensory grossly intact on exam. PSYCH: Normal mood, normal affect. SKIN: Warm, Dry, normal turgor, no rashes or lesions noted on exposed skin - Related Data Allergies/Adverse Reactions: No Known Allergies Allergy (Verified 08/10/18 09:14) Past Medical History - Social History Smoking Status: Former Smoker Chew tobacco use (# tins/day): No Frequency of alcohol use: None Drug Abuse: None Family History: Reviewed & Not Pertinent Patient has suicidal ideation: No Patient has homicidal ideation: No Pulmonary Medical History: Reports: Hx COPD Renal/ Medical History: Denies: Hx Peritoneal Dialysis GI Medical History: Reports: Hx Cirrhosis, Hx Hepatitis Infectious Medical History: Reports: Hx Hepatitis Past Surgical History: Reports: Hx Orthopedic Surgery - back - Immunizations Hx Diphtheria, Pertussis, Tetanus Vaccination: Yes Physical Exam - Vital signs Vitals: Temp Pulse Resp BP Pulse Ox 98.1 F 76 20 142/52 H 94 08/10/18 09:29 08/10/18 09:29 08/10/18 09:29 08/10/18 09:29 08/10/18 09:29 Course - Re-evaluation Re-evalutation: 08/10/18 13:34 Vitals reviewed. Nursing notes reviewed. Patient is oxygenating at 90% on 3 L nasal cannula which is his current home oxygen setting. X-ray shows a large left pleural effusion likely causing patient's symptoms. I did discuss thoracentesis with Dr. White who states that he will be able to perform this procedure today. Patient has a history of thrombocytopenia and current platelets are 81. His INR is normal. Patient will be admitted to the hospital for further management of his symptomatic pleural effusion. Case discussed with Dr. Pereira for admission. Laboratory 08/10/18 08/10/18 08/10/18 11:00 11:00 11:00 WBC 2.7 L RBC 4.60 Hgb 15.0 Hct 43.4 MCV 94 MCH 32.7 MCHC 34.6 RDW 16.6 H Plt Count 81 L Seg Neutrophils % 64.6 Lymphocytes % 23.1 Monocytes % 8.3 Eosinophils % 3.4 Basophils % 0.6 Absolute Neutrophils 1.8 Absolute Lymphocytes 0.6 Absolute Monocytes 0.2 Absolute Eosinophils 0.1 Absolute Basophils 0.0 PT INR Sodium Cancelled Potassium Cancelled Chloride Cancelled Carbon Dioxide Cancelled Anion Gap Cancelled BUN Cancelled Creatinine Cancelled Est GFR ( Amer) Cancelled Est GFR (Non-Af Amer) Cancelled Glucose Cancelled Calcium Cancelled Total Bilirubin Cancelled Direct Bilirubin Cancelled Neonat Total Bilirubin Cancelled Neonat Direct Bilirubin Cancelled Neonat Indirect Bili Cancelled AST Cancelled ALT Cancelled Alkaline Phosphatase Cancelled Troponin I Cancelled Total Protein Cancelled Albumin Cancelled 08/10/18 08/10/18 08/10/18 11:00 12:35 12:51 WBC RBC Hgb Hct MCV MCH MCHC RDW Plt Count Seg Neutrophils % Lymphocytes % Monocytes % Eosinophils % Basophils % Absolute Neutrophils Absolute Lymphocytes Absolute Monocytes Absolute Eosinophils Absolute Basophils PT 16.4 H INR 1.26 Sodium 142.9 Potassium 3.6 Chloride 106 Carbon Dioxide 32 H Anion Gap 5 BUN 12 Creatinine 0.64 Est GFR ( Amer) > 60 Est GFR (Non-Af Amer) > 60 Glucose 108 Calcium 8.6 Total Bilirubin 1.9 H Direct Bilirubin 0.6 H Neonat Total Bilirubin Not Reportable Neonat Direct Bilirubin Not Reportable Neonat Indirect Bili Not Reportable AST 139 H ALT 80 H Alkaline Phosphatase 252 H Troponin I < 0.012 Total Protein 7.6 Albumin 3.0 L Chest X-Ray 08/10/18 10:33 IMPRESSION: Chronic left pleural effusion and associated airspace disease. - Vital Signs Vital signs: Temp Pulse Resp BP Pulse Ox 98.1 F 76 16 140/59 H 91 L 08/10/18 09:29 08/10/18 09:29 08/10/18 13:03 08/10/18 13:03 08/10/18 13:03 - Laboratory Result Diagrams: 08/10/18 11:00 08/10/18 12:35 Laboratory results interpreted by me: 08/10/18 08/10/18 08/10/18 11:00 11:00 12:35 WBC 2.7 L RDW 16.6 H Plt Count 81 L PT 16.4 H Carbon Dioxide 32 H Total Bilirubin 1.9 H Direct Bilirubin 0.6 H AST 139 H ALT 80 H Alkaline Phosphatase 252 H Albumin 3.0 L - EKG Interpretation by Me Additional EKG results interpreted by me: 08/10/18 12:12 Interpreted by myself 1110: Normal sinus rhythm, rate 72, normal axis, no ectopy, no ST elevation Discharge - Discharge Clinical Impression: Pleural effusion, left Dyspnea Qualifiers: Dyspnea type: unspecified Qualified Code(s): R06.00 - Dyspnea, unspecified Condition: Stable Disposition: ADMITTED INPATIENT Admitting Provider: Hospitalist Unit Admitted: Telemetry Referrals: HEALTH,EMPLOYEE [ACTIVE STAFF] - Follow up as needed
--- NOTE | 2018-08-10 13:02 | EKG REPORT ---
SEVERITY:- OTHERWISE NORMAL ECG - SINUS RHYTHM LOW VOLTAGE IN FRONTAL LEADS : Confirmed by: Isa Alonso MD 10-Aug-2018 13:01:50
[2018-08-10 13:09] LABS: ALANINE AMINOTRANSFERASE 80 U/L (21-72); ALKALINE PHOSPHATASE 252 U/L (38-126); ASPARTATE AMINO TRANSFERASE 139 U/L (17-59); BILIRUBIN,DIRECT 0.6 mg/dL (0.0-0.4); BILIRUBIN,TOTAL 1.9 mg/dL (0.2-1.3); BLOOD UREA NITROGEN 12 mg/dL (7-20); CALCIUM 8.6 mg/dL (8.4-10.2); CARBON DIOXIDE 32 mmol/L (22-30); GLUCOSE 108 mg/dL (75-110); POTASSIUM 3.6 mmol/L (3.6-5.0); TOTAL PROTEIN 7.6 g/dL (6.3-8.2)
[2018-08-10 13:15] LABS: ANION GAP 5 (5-19); CHLORIDE 106 mmol/L (98-107); SODIUM 142.9 mmol/L (137-145)
--- NOTE | 2018-08-10 14:05 | PDOC H&P ---
History of Present Illness Admission Date/PCP: 08/10/18 13:47 CONNER OSULLIVAN PA-C Patient complains of: SOB History of Present Illness: DONTAE RODRIGUEZ is a 53 year old male with a PMH of cirrhosis from hepatitis C, S/P TIPS 4 yrs ago, and known left sided pleural effusion who presented with increasing SOB. Patient was admitted here last month for acute hypoxic respiratory failure with left sided pleural effusion. He was treated for possible pneumonia. He was seen by pulmonology and because of low platelets and cirrhosis, it was deemed the risk of procedure outweighed the benefit. He had moderate pleural effusion that time. He was discharged home but required home O2. He says he continued to have progressive SOB much worse in the past 2 weeks. He went to see his PCP yesterday and repeat CXR shows large left sided effusion. PEr patient, his sats went down to 82% at home on 3 lpm. Past Medical History Pulmonary Medical History: Reports: Chronic Obstructive Pulmonary Disease (COPD) GI Medical History: Reports: Cirrhosis, Hepatitis Past Surgical History Past Surgical History: Reports: Orthopedic Surgery - back Social History Smoking Status: Former Smoker Frequency of Alcohol Use: None Hx Recreational Drug Use: No Drugs: None Family History Family History: Reviewed & Not Pertinent Parental Family History Reviewed: Yes - no premature CAD Children Family History Reviewed: No Sibling(s) Family History Reviewed.: No Medication/Allergy Home Medications: Lactulose [Cephulac Syrup 20 gm/30 ml Udcup] 30 ml PO QID 10/17/17 Methadone HCl 10 mg PO Q6HP PRN 10/17/17 Oxycodone HCl/Acetaminophen [Percocet 5-325 mg Tablet] 1 tab PO Q6HP PRN 10/17/17 Furosemide [Lasix 40 mg Tablet] 60 mg PO DAILY 07/06/18 Spironolactone [Aldactone 100 mg Tablet] 100 mg PO DAILY 07/06/18 Albuterol Sulfate [Ventolin Hfa 8 gm Mdi (1 Mdi/ER Disp)] 2 puff IH Q4H PRN #1 inhaler 07/12/18 Amox Tr/Potassium Clavulanate [Augmentin 875-125 mg Tablet] 1 tab PO BID 5 Days #10 tablet 07/12/18 Budesonide/Formoterol Fumarate [Symbicort Hfa 80-4.5 Mcg Inhaler 6.9 gm] 2 puff IH BID #1 inhaler 07/12/18 Spironolactone [Aldactone 25 mg Tablet] 100 mg PO DAILY tablet 07/12/18 Allergies/Adverse Reactions: No Known Allergies Allergy (Verified 08/10/18 09:14) Review of Systems All systems: reviewed and no additional remarkable complaints except as stated - as mentioned in HPI Physical Exam Vital Signs: Temp Pulse Resp BP Pulse Ox 98.1 F 76 16 140/59 H 91 L 08/10/18 09:29 08/10/18 09:29 08/10/18 13:03 08/10/18 13:03 08/10/18 13:03 Intake & Output 08/09/18 08/10/18 08/11/18 06:59 06:59 06:59 Weight 263 lb 4.8 oz General appearance: PRESENT: no acute distress, well-developed, well-nourished Head exam: PRESENT: atraumatic, normocephalic Eye exam: PRESENT: conjunctiva pink, EOMI, PERRLA. ABSENT: scleral icterus Ear exam: PRESENT: normal external ear exam Mouth exam: PRESENT: moist, tongue midline Neck exam: ABSENT: carotid bruit, JVD, lymphadenopathy, thyromegaly Respiratory exam: PRESENT: decreased breath sounds - left base. ABSENT: rales, rhonchi, wheezes Pulses: PRESENT: normal dorsalis pedis pul GI/Abdominal exam: PRESENT: distended, normal bowel sounds. ABSENT: guarding, mass, organolmegaly, rebound, tenderness Rectal exam: PRESENT: deferred Neurological exam: PRESENT: alert, awake, oriented to person, oriented to place, oriented to time, oriented to situation, CN II-XII grossly intact. ABSENT: motor sensory deficit Results Laboratory Results: 08/10/18 11:00 08/10/18 12:35 08/10/18 08/10/18 08/10/18 11:00 11:00 12:35 WBC 2.7 L RBC 4.60 Hgb 15.0 Hct 43.4 MCV 94 MCH 32.7 MCHC 34.6 RDW 16.6 H Plt Count 81 L Seg Neutrophils % 64.6 Lymphocytes % 23.1 Monocytes % 8.3 Eosinophils % 3.4 Basophils % 0.6 Absolute Neutrophils 1.8 Absolute Lymphocytes 0.6 Absolute Monocytes 0.2 Absolute Eosinophils 0.1 Absolute Basophils 0.0 Sodium Cancelled 142.9 Potassium Cancelled 3.6 Chloride Cancelled 106 Carbon Dioxide Cancelled 32 H Anion Gap Cancelled 5 BUN Cancelled 12 Creatinine Cancelled 0.64 Est GFR ( Amer) Cancelled > 60 Est GFR (Non-Af Amer) Cancelled > 60 Glucose Cancelled 108 Calcium Cancelled 8.6 Total Bilirubin Cancelled 1.9 H AST Cancelled 139 H ALT Cancelled 80 H Alkaline Phosphatase Cancelled 252 H Total Protein Cancelled 7.6 Albumin Cancelled 3.0 L 08/10/18 08/10/18 11:00 12:51 Troponin I Cancelled < 0.012 Impressions: Chest X-Ray 08/10/18 10:33 IMPRESSION: Chronic left pleural effusion and associated airspace disease. Assessment & Plan - Diagnosis (1) Acute respiratory failure with hypoxia Is this a current diagnosis for this admission?: Yes Plan: Secondary to left pleural effusion. ER provider has discussed with radiologist who is planning to proceed with thoracentesis later this afternoon. Currently saturating well (2) Pleural effusion, left Is this a current diagnosis for this admission?: Yes Plan: Thoracentesis as per #1. (3) Cirrhosis of liver Qualifiers: Ascites presence: with ascites - Time Time Spent: 30 to 50 Minutes
--- NOTE | 2018-08-10 15:19 | RADIOLOGY REPORT (SQ) ---
EXAM DESCRIPTION: U/S THORACENTESIS WITH IMAGING COMPLETED DATE/TIME: 08/10/2018 3:05 pm REASON FOR STUDY: left pleural effusion COMPARISON: None. LIMITATIONS: None. PROCEDURE: Procedure, risks, benefit, and alternative explained to patient who then gave written con sent. The posterior left chest wall was marked using ultrasound guidance. A time-out was called for correct marking verification. Chest prepped and draped using sterile technique. Local anesthesia ac hieved using 3.5 ml of 1% lidocaine injection. A 6fr Safe-T- Centesis set was introduced into the le ft pleural space. Fluid was aspirated. The catheter was removed and the entry site was covered with sterile bandage. No immediate complications noted. Images acquired during the procedure were stored on PACS. FINDINGS: ENTRY SITE: Posterior left chest. FLUID VOLUME: 700 cc FLUID ANALYSIS: Mandy OTHER: Fluid sent to the lab for testing. IMPRESSION: SUCCESSFUL THORACENTESIS USING ULTRASOUND GUIDANCE. COMMENT: Patient medication list reviewed: Yes- Quality ID# [id number]:Eligible professional attests to doc umenting in the medical record they obtained, updated, or reviewed the patient's current medications. TECHNICAL DOCUMENTATION: JOB ID: [id number] [employer]- All Rights Reserved Reading location - IP/workstation name: [email or web address]
--- NOTE | 2018-08-10 16:04 | RADIOLOGY REPORT (SQ) ---
EXAM DESCRIPTION: CHEST SINGLE VIEW COMPLETED DATE/TIME: 08/10/2018 2:59 pm REASON FOR STUDY: POST THORA PLEURAL EFFUSION ON LEFT COMPARISON: Earlier the same day. NUMBER OF VIEWS: One view. TECHNIQUE: Single frontal radiographic image of the chest acquired. LIMITATIONS: None. FINDINGS: LUNGS AND PLEURA: Decrease in left pleural effusion. No pneumothorax. MEDIASTINUM AND HEART: Stable heart size and mediastinal structures. BONY STRUCTURES: No acute findings. HARDWARE: None. OTHER: No other significant finding. IMPRESSION: No pneumothorax. TECHNICAL DOCUMENTATION: JOB ID: [id number] Reading location - IP/workstation name: [facility]ATRI[facility]ERSierra
[2018-08-10 16:05] LABS: FLUID APPEARANCE CLOUDY; FLUID COLOR AMBER; FLUID SOURCE LUNG; FLUID TYPE PLEURAL; FLUID VISCOSITY LIQUID
[2018-08-10] MEDS: OXYCODONE-ACETAMINOPHEN 5-325 MG TABLET PO PRN (17:55)
[2018-08-10] MEDS: METHADONE HCL 10 MG TABLET PO PRN (17:55)
[2018-08-10] MEDS: GUAIFENESIN 600 MG TABLET.SA PO SCH (18:24)
[2018-08-10] MEDS: LACTULOSE SYRUP 20 GM/30 ML UDCUP PO SCH (21:17)
--- NOTE | 2018-08-10 23:14 | RADIOLOGY REPORT (SQ) ---
EXAM DESCRIPTION: XR CHEST 1 VIEW COMPLETED DATE/TME: 08/10/2018 16:41 CLINICAL HISTORY: 53 years, Male, POST THORA 2 HOURS PLEURAL EFFUSION ON LEFT 2 HOURS COMPARISON: Prior chest x-ray from 08/10/2018 at 11:02 AM NUMBER OF VIEWS: 2 TECHNIQUE: AP chest LIMITATIONS: None. FINDINGS: Heart size is stable. [id number] left pleural effusion with possible loculated component, similar to the prior. Osteopenia. No discrete pneumothorax. Postsurgical change of the cervical spine. Airspace opacity lateral left upper lobe, as before. Reticulonodular changes in the right lung base. IMPRESSION: Little change from the prior exam. No discrete pneumothorax. copyright 2010 [employer]- All Rights Reserved
[2018-08-11] MEDS: GUAIFENESIN 600 MG TABLET.SA PO SCH (05:29)
[2018-08-11] MEDS: LACTULOSE SYRUP 20 GM/30 ML UDCUP PO SCH (05:29)
[2018-08-11] MEDS: METHADONE HCL 10 MG TABLET PO PRN (05:31)
[2018-08-11] MEDS: OXYCODONE-ACETAMINOPHEN 5-325 MG TABLET PO PRN (05:31)
[2018-08-11] MEDS ORDERED: FUROSEMIDE 40 MG TABLET PO SCH (10:00)
[2018-08-11] MEDS ORDERED: SPIRONOLACTONE 25 MG TABLET PO SCH (10:00)
[2018-08-11 11:52] VITALS: BP 115/49
--- NOTE | 2018-08-11 14:21 | PDOC DISCHARGE SUMMARY ---
General - Admit/Disc Date/PCP Admission Date/Primary Care Provider: 08/10/18 13:47 CONNER OSULLIVAN PA-C Discharge Date: 08/11/18 - Discharge Diagnosis (1) Acute respiratory failure with hypoxia Is this a current diagnosis for this admission?: Yes Summary: 08/11/2018-patient was admitted with acute respiratory failure with hypoxia most likely secondary to left pleural effusion. Status post thoracentesis was done. Patient doing much better today his pulse ox is 98% on room air patient is expressing desire to go home today. (2) Pleural effusion Is this a current diagnosis for this admission?: No Summary: 08/11/2018-patient is admitted with left pleural effusion causing respiratory distress status post thoracentesis 750 cc of fluid is removed. The cultures negative so far. (3) Cirrhosis of liver Is this a current diagnosis for this admission?: No Summary: Patient has history of chronic cirrhosis of the liver in association with ascite s. No acute events during the hospital stay. - Additional Information Discharge Diet: As Tolerated Discharge Activity: Activity As Tolerated Home Medications: Lactulose [Cephulac Syrup 20 gm/30 ml Udcup] 30 ml PO Q8 10/17/17 Methadone HCl 10 mg PO Q6HP PRN 10/17/17 Oxycodone HCl/Acetaminophen [Percocet 5-325 mg Tablet] 1 tab PO Q6HP PRN 10/17/17 Furosemide [Lasix 40 mg Tablet] 60 mg PO DAILY 07/06/18 Guaifenesin [Mucinex] 600 mg PO Q12 08/10/18 Spironolactone [Aldactone 25 mg Tablet] 50 mg PO DAILY 08/10/18 History of Present Illness History of Present Illness: DONTAE RODRIGUEZ is a 52 year old male 53 year old male with a PMH of cirrhosis from hepatitis C, S/P TIPS 4 yrs ago, and known left sided pleural effusion who presented with increasing SOB. Patient was admitted here last month for acute hypoxic respiratory failure with left sided pleural effusion. He was treated for possible pneumonia. He was seen by pulmonology and because of low platelets and cirrhosis, it was deemed the risk of procedure outweighed the benefit. He had moderate pleural effusion that time. He was discharged home but required home O2. He says he continued to have progressive SOB much worse in the past 2 weeks. He went to see his PCP yesterday and repeat CXR shows large left sided effusion. PEr patient, his sats went down to 82% at home on 3 lpm. Physical Exam Vital Signs: Temp Pulse Resp BP Pulse Ox 99.3 F 66 17 115/49 L 94 08/11/18 11:49 08/11/18 11:49 08/11/18 11:49 08/11/18 11:49 08/11/18 11:49 Intake & Output 08/10/18 08/11/18 08/12/18 06:59 06:59 06:59 Intake Total 1420 Output Total 725 Balance 695 Weight 119 kg General appearance: PRESENT: no acute distress, obese Head exam: PRESENT: atraumatic Eye exam: PRESENT: PERRLA Mouth exam: PRESENT: moist, tongue midline Neck exam: ABSENT: carotid bruit, JVD, lymphadenopathy, thyromegaly Respiratory exam: PRESENT: decreased breath sounds Cardiovascular exam: PRESENT: RRR. ABSENT: diastolic murmur, rubs, systolic murmur GI/Abdominal exam: PRESENT: ascites, normal bowel sounds, soft. ABSENT: tenderness Extremities exam: PRESENT: full ROM. ABSENT: calf tenderness, clubbing, pedal edema Neurological exam: PRESENT: alert, awake, oriented to person, oriented to place, oriented to time, oriented to situation, CN II-XII grossly intact. ABSENT: motor sensory deficit Psychiatric exam: PRESENT: appropriate affect, normal mood. ABSENT: homicidal ideation, suicidal ideation Results Laboratory Results: 08/10/18 11:00 08/10/18 12:35 08/10/18 14:45 Fluid Type PLEURAL Fluid Source LUNG Fluid Color MOOKIE Fluid Appearance CLOUDY Fluid Viscosity LIQUID Fluid WBC 339 Fluid RBC [id number] 08/10/18 08/10/18 11:00 12:51 Troponin I Cancelled < 0.012 Impressions: Thoracentesis Ultrasound 08/10/18 12:42 IMPRESSION: SUCCESSFUL THORACENTESIS USING ULTRASOUND GUIDANCE. Chest X-Ray 08/10/18 16:41 IMPRESSION: Little change from the prior exam. No discrete pneumothorax. copyright 2010 [employer]- All Rights Reserved Qualifiers - * PATIENT BEING DISCHARGED WITH ANY OF THE FOLLOWING DIAGNOSIS: No VTE patient discharged on overlapping Therapy?: No
[2018-08-11] MEDS ORDERED: CEFTRIAXONE 1 GM/D5W RTU 1 GM/50 ML RTUPB IV SCH (15:00)
== END 2018-08-11 12:38 | disposition home or self-care (01) ==
LOC: ER 09:12 → INTOOBSV 13:47 → EH 13:47 → 4N 16:22
PROVIDERS: ADMIT Internal Medicine; ATTEND Internal Medicine
PROC: 0W9B3ZZ Drainage of Left Pleural Cavity, Percutaneous Approach (ICD-10-PCS; principal; 2018-08-10)
DX: J96.01 Acute respiratory failure with hypoxia (principal); J90 Pleural effusion, not elsewhere classified; K74.69 Other cirrhosis of liver; R18.8 Other ascites; B19.20 Unspecified viral hepatitis C without hepatic coma; D69.6 Thrombocytopenia, unspecified; J44.9 Chronic obstructive pulmonary disease, unspecified; R05 Cough; Z79.899 Other long term (current) drug therapy; Z87.01 Personal history of pneumonia (recurrent); Z87.891 Personal history of nicotine dependence; Z99.81 Dependence on supplemental oxygen; Z98.890 Other specified postprocedural states
CPT/HCPCS: 93005; 94640; 99285; 36415; 87205; 87070; 85025; 85610; 89050; 87075; 80053; 84484; 88162; 88305 ×2; 71045; 32555; 93010; A9270 ×10; J3490; J7620

== ENCOUNTER 2018-10-26 15:14 | Emergency (ER) | payer MEDICARE ==
[2018-10-26 15:53] VITALS: BP 152/57
--- NOTE | 2018-10-26 16:14 | RADIOLOGY REPORT (SQ) ---
EXAM DESCRIPTION: WRIST LEFT 2 VIEWS COMPLETED DATE/TIME: 10/26/2018 3:59 pm REASON FOR STUDY: fall COMPARISON: None. NUMBER OF VIEWS: Two views. TECHNIQUE: AP and lateral radiographic images acquired of the left wrist. LIMITATIONS: None. FINDINGS: MINERALIZATION: Normal. BONES: No acute fracture or dislocation. No worrisome bone lesions. Normal alignment. SOFT TISSUES: No soft tissue swelling. No foreign body. OTHER: No other significant finding. IMPRESSION: NEGATIVE STUDY OF THE LEFT WRIST. NO RADIOGRAPHIC EVIDENCE OF ACUTE INJURY. TECHNICAL DOCUMENTATION: JOB ID: [id number] [employer]- All Rights Reserved Reading location - IP/workstation name: [facility] AND EYE [email or web address] [email or web address]
[2018-10-26] MEDS ORDERED: HYDROCODONE/ACETAMINOPHEN 5-325 MG TABLET PO ONE (16:21)
--- NOTE | 2018-10-26 16:23 | ER Document Report ---
ED Hand/Wrist Injury - General Chief Complaint: Wrist Injury Stated Complaint: FALL/LEFT WRIST PAIN Time Seen by Provider: 10/26/18 16:18 Primary Care Provider: CONNER OSULLIVAN PA-C [Primary Care Provider] - Follow up as needed Mode of Arrival: Ambulatory Information source: Patient Notes: 53-year-old male presented to ED for complaint of left wrist pain. He fell about 11:00 this morning he is short of breath because he has a history of COPD and is on 3 L of O2 at home. He does have good cap refills and movement of all fingers. X-ray has been completed and there is no fracture to the wrist. Will treat with cock-up splint and discharged home. Patient will be given elevation ice and exercises instructions treated with Prescott in the emergency room and have follow-up with his primary doctor. TRAVEL OUTSIDE OF THE [place] IN LAST 30 DAYS: No - HPI Injury to: Wrist Onset: This morning - Left Where: Home, Outdoors Timing: Still present Quality of pain: Sharp, Throbbing Severity: Moderate Pain Level: 4 Context: Fall, Swelling - Tripped over a bag of sand and fell - Related Data Allergies/Adverse Reactions: No Known Allergies Allergy (Verified 08/10/18 09:14) Past Medical History - General Information source: Patient - Social History Smoking Status: Former Smoker Frequency of alcohol use: None Drug Abuse: None Lives with: Family Family History: Reviewed & Not Pertinent Patient has suicidal ideation: No Patient has homicidal ideation: No - Past Medical History Cardiac Medical History: Reports: None Pulmonary Medical History: Reports: Hx COPD EENT Medical History: Reports: None Neurological Medical History: Reports: None Endocrine Medical History: Reports: None Renal/ Medical History: Reports: None Malignancy Medical History: Reports None GI Medical History: Reports: Hx Cirrhosis, Hx Hepatitis Musculoskeletal Medical History: Reports Hx Arthritis, Reports Hx Musculoskeletal Deformity, Reports Hx Musculoskeletal Trauma Skin Medical History: Reports None Psychiatric Medical History: Reports: None Traumatic Medical History: Reports: None Infectious Medical History: Reports: Hx Hepatitis Past Surgical History: Reports: Hx Orthopedic Surgery - back - Immunizations Hx Diphtheria, Pertussis, Tetanus Vaccination: Yes Review of Systems - Review of Systems Constitutional: No symptoms reported EENT: No symptoms reported Cardiovascular: No symptoms reported Respiratory: No symptoms reported Gastrointestinal: No symptoms reported Genitourinary: No symptoms reported Male Genitourinary: No symptoms reported Musculoskeletal: Other - And swelling left wrist pain Skin: No symptoms reported Hematologic/Lymphatic: No symptoms reported Neurological/Psychological: No symptoms reported -: Yes All other systems reviewed and negative Physical Exam - Vital signs Vitals: Temp Pulse Resp BP Pulse Ox 98.2 F 71 16 152/57 H 86 L 10/26/18 15:47 10/26/18 15:47 10/26/18 15:47 10/26/18 15:47 10/26/18 15:47 Interpretation: Normal - General General appearance: Appears well, Alert - HEENT Head: Normocephalic, Atraumatic Eyes: Normal Pupils: PERRL - Respiratory Respiratory status: No respiratory distress Chest status: Nontender Breath sounds: Normal Chest palpation: Normal - Cardiovascular Rhythm: Regular Heart sounds: Normal auscultation Murmur: No - Abdominal Inspection: Normal Distension: No distension Bowel sounds: Normal Tenderness: Nontender Organomegaly: No organomegaly - Back Back: Normal, Nontender - Extremities General upper extremity: Normal color, Normal temperature General lower extremity: Nontender, Normal color, Normal ROM, Normal temperature, Normal weight bearing. No: Aamir's sign Wrist: Tender, Ecchymosis, Limited ROM. No: Axial load of thumb pain - Due to pain - Neurological Neuro grossly intact: Yes Cognition: Normal Orientation: AAOx4 [place] Coma Scale Eye Opening: Spontaneous [place] Coma Scale Verbal: Oriented Caity Coma Scale Motor: Obeys Commands Caity Coma Scale Total: 15 Speech: Normal Motor strength normal: LUE, RUE, LLE, RLE Sensory: Normal - Psychological Associated symptoms: Normal affect, Normal mood - Skin Skin Temperature: Warm Skin Moisture: Dry Skin Color: Normal Course - Re-evaluation Re-evalutation: 10/26/18 16:28 Chest x-ray with patient and written report of x-ray given to patient. Patient was given one Prescott while in the emergency room he has Percocet at home. Cock- up splint was applied to the wrist and patient was instructed to follow-up with primary care and orthopedics. Patient was discharged home with instructions for elevation and ice. - Vital Signs Vital signs: Temp Pulse Resp BP Pulse Ox 98.2 F 71 16 152/57 H 86 L 10/26/18 15:47 10/26/18 15:47 10/26/18 15:47 10/26/18 15:47 10/26/18 15:47 - Diagnostic Test Radiology reviewed: Image reviewed, Reports reviewed Procedures - Immobilization Left Wrist Time completed: 16:28 Immobilizer type: Cock-up Performed by: RN Post-Proc Neuro Vasc Exam: Normal Alignment checked and good: Yes Discharge - Discharge Clinical Impression: Left wrist sprain Qualifiers: Encounter type: initial encounter Qualified Code(s): S63.502A - Unspecified sprain of left wrist, initial encounter Condition: Stable Disposition: HOME, SELF-CARE Additional Instructions: SPRAIN: Your injury is a sprain. A sprain results from stretching or tearing of the ligaments, usually from a twisting injury. The ligaments will require time and protection in order to heal properly. Many sprains are quite disabling and should be taken seriously. The usual initial treatment of sprains is cold packs, elevation, and rest of the injured area. Your physician has assessed the seriousness of your ligament injury, and has outlined a treatment plan. Understand that this treatment may change, depending on how you progress. If a re-examination was recommended, it is important that you follow up as instructed. Call the doctor any time if there is severe pain, numbness, or loss of function in the injured area. SPLINT PRECAUTIONS: A splint has been placed. This will protect the area while healing begins. Your problem does NOT normally require a cast. It MUST, however, be held still! Keep the splint on ALL THE TIME until instructed to remove it by the doctor. As you begin to use the area, be careful. You shouldn't do anything which causes discomfort -- you may disturb the injury even with the splint in place. After the initial period of rest and elevation, if splint does not prevent pain when you move, come back. You may require placement of a different splint, or a cast. If there is unexpected severe pain, or numbness, discoloration, or swelling beyond the splint, you should return at once. If you feel that the splint has broken or become loose, come back. USE OF IAPY-LTC-NAXVLVT IBUPROFEN: Ibuprofen (Advil, Nuprin, Medipren, Motrin IB) is a medication for fever and pain control. In addition, it has anti- inflammatory effects which may be beneficial, especially in the treatment of injuries. It's best to take ibuprofen with food. Persons with ulcer disease or allergy to aspirin should notify their physician of this before taking ibuprofen. Ibuprofen can be given every four to six hours, for a total of four doses daily. Age Pain or fever dose Antiinflammatory dose 6-8 yr 200 mg (1 tab) 200 mg (1 tab) 9-11 yr 200 mg (1 tab) 200-400 mg (1-2 tab) 11-14 yr 200-400 mg (1-2 tab) 400 mg (2 tab) 15-adult 400 mg (2 tab) 600 mg (3 tab) ORAL NARCOTIC MEDICATION: You have been given a prescription for pain control. This medication is a narcotic. It's best taken with food, as nausea can result if taken on an empty stomach. Don't operate machinery or drive within six hours of taking this medication. Do not combine this medicine with alcohol, or with any medication which can cause sedation (such as cold tablets or sleeping pills) unless you get permission from the physician. Narcotics tend to cause constipation. If possible, drink plenty of fluids and eat a diet high in fiber and fruits. Please be aware that prescription narcotics also have the potential for abuse. People become addicted to these medications because of the general sense of wellbeing that they induce. This feeling along with a significant reduction in tension, anxiety, and aggression provides a stimulating seductive quality to these drugs. Once your pain is under control, we encourage you to discard your unused narcotics. FOLLOW-UP CARE: If you have been referred to a physician for follow-up care, call the physicians office for an appointment as you were instructed or within the next two days. If you experience worsening or a significant change in your symptoms, notify the physician immediately or return to the Emergency Department at any time for re-evaluation. Prescriptions: Hydrocodone/Acetaminophen [Prescott 5-325 mg Tablet] 1 tab PO Q6HP PRN #3 tablet PRN Reason: Referrals: [facility] [Provider Group] - Follow up tomorrow CONNER OSULLIVAN PA-C [Primary Care Provider] - Follow up tomorrow
== END 2018-10-26 16:27 | disposition home or self-care (01) ==
LOC: ER 15:14
DX: S63.502A Unspecified sprain of left wrist, initial encounter (principal); W19.XXXA Unspecified fall, initial encounter; Y92.009 Unspecified place in unspecified non-institutional (private) residence as the place of occurrence of the external cause; J44.9 Chronic obstructive pulmonary disease, unspecified; Z99.81 Dependence on supplemental oxygen
CPT/HCPCS: 99283; 73100; L3908; A9270

== ENCOUNTER → 2019-04-19 | Outpatient (CLI) | payer MEDICARE ==
--- NOTE | 2019-04-19 13:11 | RADIOLOGY REPORT (SQ) ---
EXAM DESCRIPTION: U/S ABDOMEN LIMITED W/O DOP COMPLETED DATE/TIME: 04/19/2019 12:02 pm REASON FOR STUDY: K74.69 OTHER CIRRHOSIS OF LIVER K74.69 OTHER CIRRHOSIS OF LIVER COMPARISON: None. TECHNIQUE: Dynamic and static grayscale images acquired of the abdomen and recorded on PACS. Additio nal selected color Doppler and spectral images recorded. LIMITATIONS: None. FINDINGS: PANCREAS: Not seen. LIVER: The liver is slightly heterogeneous. No definable mass. LIVER VASCULATURE: Normal directional flow of the main portal vein and hepatic veins. GALLBLADDER: Gallstones are present. There is no wall thickening. There is no pericholecystic fluid . ULTRASOUND-DETECTED KESSLER'S SIGN: Negative. INTRAHEPATIC DUCTS AND COMMON DUCT: Common bile duct is borderline at 7.7 mm. INFERIOR VENA CAVA: Not imaged. AORTA: Not seen. RIGHT KIDNEY: Normal size 10.9 cm. Normal echogenicity. No solid or suspicious masses. No hydronephr osis. No calcifications. PERITONEAL AND RIGHT PLEURAL SPACE: Mild ascites is present. OTHER: Splenomegaly. The spleen measures 19.2 cm. IMPRESSION: 1. Heterogeneous echotexture of the liver and splenomegaly consistent with the history of cirrhosis. 2. Cholelithiasis. 3. Borderline common bile duct. Correlate for biliary obstruction. 4. Small amount of ascites. TECHNICAL DOCUMENTATION: JOB ID: [id number]- All Rights Reserved Reading location - IP/workstation name: [email or web address]
== END ==
LOC: RAD 10:46
PROVIDERS: ATTEND Internal Medicine Gastroenterology
DX: K74.69 Other cirrhosis of liver (principal); K80.80 Other cholelithiasis without obstruction
CPT/HCPCS: 76705

== ENCOUNTER 2019-05-13 07:31 | Emergency (ER) | payer MEDICARE ==
--- NOTE | 2019-05-13 08:32 | ER Document Report ---
ED General - General Chief Complaint: Ankle Injury Stated Complaint: LEFT ANKLE/FOOT PAIN, SWELLING Time Seen by Provider: 05/13/19 08:08 Primary Care Provider: CONNER OSULLIVAN PA-C [Primary Care Provider] - Follow up in 1 week Mode of Arrival: Ambulatory Information source: Patient Notes: This 54-year-old male with history of cirrhosis hepatitis COPD presents [facility] with left ankle and foot swollen with erythema for the past 2 weeks. Reports he twisted his ankle couple weeks ago but was not seen for. Reports increased pain with walking. He is able to walk but uses cane. He denies fever nausea vomiting diarrhea. Reports he is on pain management taking methadone and Percocet that is not even touching the pain. TRAVEL OUTSIDE OF THE [place] IN LAST 30 DAYS: No - HPI Onset: Other - 2 weeks ago Onset/Duration: Persistent, Worse Associated symptoms: None Exacerbated by: Walking Relieved by: Denies Similar symptoms previously: No Recently seen / treated by doctor: No - Related Data Allergies/Adverse Reactions: No Known Allergies Allergy (Verified 05/13/19 07:44) Past Medical History - General Information source: Patient - Social History Smoking Status: Former Smoker Chew tobacco use (# tins/day): No Frequency of alcohol use: None Drug Abuse: None Lives with: Family Family History: Reviewed & Not Pertinent Patient has suicidal ideation: No Patient has homicidal ideation: No - Past Medical History Cardiac Medical History: Reports: Hx Peripheral Vascular Disease Pulmonary Medical History: Reports: Hx COPD Endocrine Medical History: Denies: Hx Diabetes Mellitus Type 1, Hx Diabetes Mellitus Type 2 Renal/ Medical History: Denies: Hx Peritoneal Dialysis GI Medical History: Reports: Hx Cirrhosis, Hx Hepatitis Musculoskeletal Medical History: Reports Hx Arthritis, Reports Hx Musculoskeletal Deformity, Reports Hx Musculoskeletal Trauma Infectious Medical History: Reports: Hx Hepatitis Past Surgical History: Reports: Hx Orthopedic Surgery - neck, hips, back - Immunizations Hx Diphtheria, Pertussis, Tetanus Vaccination: Yes Review of Systems - Review of Systems Notes: Review HPI for review of systems., All other systems negative Physical Exam - Vital signs Vitals: Temp Pulse Resp BP Pulse Ox 98.1 F 84 20 155/72 H 90 L 05/13/19 07:38 05/13/19 07:38 05/13/19 07:38 05/13/19 07:38 05/13/19 07:38 - General General appearance: Alert In distress: None - HEENT Head: Normocephalic Eyes: Normal Extraocular movements intact: Yes Neck: Normal, Supple. No: Lymphadenopathy - Respiratory Respiratory status: No respiratory distress. No: Respiratory distress Chest status: Nontender Breath sounds: Normal Chest palpation: Normal Notes: pt is on home 02 2l/nc - Cardiovascular Rhythm: Regular Heart sounds: Normal auscultation Murmur: No - Abdominal Inspection: Obese Distension: Distended Bowel sounds: Normal Tenderness: Nontender - Extremities General upper extremity: Normal ROM General lower extremity: Normal ROM Calf: Other - Bilateral erythema both shins Ankle: Tender, Edema, Other - Erythema Foot: Tender, Edema, Other - Erythema - Neurological Neuro grossly intact: Yes Cognition: Normal Orientation: AAOx4 Caity Coma Scale Eye Opening: Spontaneous Caity Coma Scale Verbal: Oriented [place] Coma Scale Motor: Obeys Commands Caity Coma Scale Total: 15 Speech: Normal - Psychological Associated symptoms: Normal affect, Normal mood - Skin Skin Temperature: Warm Skin Moisture: Dry Skin irregularity: Erythema - anterior ankle/proximal foot, cap refill <3 sec, good pedal pulse Location of irregularity: Extremities - left ankle and foot Irregularity with: Warmth Course - Re-evaluation Re-evalutation: 05/13/19 08:35 54-year-old male with history of hepatitis cirrhosis COPD presents to the emergency department complaints of left ankle foot pain for the past 2 weeks. Reports he twisted it 2 weeks ago. His ankle and the top of his foot proximally is warm with some erythema. Patient is on 2 L nasal cannula home oxygen. He is also in pain management for his back and his hips. Reports he takes methadone and Percocet and it does not touch his pain in his ankle. He declines pain meds here. Patient also has a very distended abdomen. His reports they just did ultrasound 1 month ago because of the distention but said it was all air. He denies tenderness. Patient reports he is voiding without problems. Reports he is eating drinking bowel movement without any issues. X-ray ordered by triage nurse and labs ordered now. Patient and instructed on plan of care. They both verbalized understanding. 05/13/19 10:16 Labs unremarkable x-ray negative for fracture. Patient instructed on results. Patient will be placed on Keflex for cellulitis. He was instructed on rest and elevate the leg return here for worsening symptoms. Was also instructed to follow-up with his primary care provider for recheck, evaluation, A1C. Patient uses cane does not need crutches. 05/13/19 08:45 05/13/19 08:45 MCV 94 fl (80-97) 05/13/19 08:45 MCH 31.9 pg (27.0-33.4) 05/13/19 08:45 MCHC 34.1 g/dL (32.0-36.0) 05/13/19 08:45 RDW 14.9 % (11.5-14.0) H 05/13/19 08:45 Seg Neutrophils % 65.9 % (42-78) 05/13/19 08:45 Chloride 103 mmol/L (98-107) 05/13/19 08:45 Carbon Dioxide 36 mmol/L (22-30) H 05/13/19 08:45 Anion Gap 3 (5-19) L 05/13/19 08:45 Est GFR ( Amer) > 60 (>60) 05/13/19 08:45 Glucose 137 mg/dL (75-110) H 05/13/19 08:45 Calcium 8.3 mg/dL (8.4-10.2) L 05/13/19 08:45 Total Bilirubin 1.8 mg/dL (0.2-1.3) H 05/13/19 08:45 AST 85 U/L (17-59) H 05/13/19 08:45 Alkaline Phosphatase 327 U/L (38-126) H 05/13/19 08:45 Total Protein 7.1 g/dL (6.3-8.2) 05/13/19 08:45 Albumin 2.6 g/dL (3.5-5.0) L 05/13/19 08:45 Ankle X-Ray 05/13/19 00:00 IMPRESSION: SOFT TISSUE SWELLING. NO ACUTE BONY FINDINGS. - Vital Signs Vital signs: Temp Pulse Resp BP Pulse Ox 97.4 F 74 18 137/84 H 92 05/13/19 10:43 05/13/19 10:43 05/13/19 10:43 05/13/19 10:43 05/13/19 10:43 - Laboratory Result Diagrams: 05/13/19 08:45 05/13/19 08:45 Laboratory results interpreted by me: 05/13/19 05/13/19 08:45 08:45 WBC 2.8 L RDW 14.9 H Plt Count 62 L Carbon Dioxide 36 H Anion Gap 3 L Glucose 137 H Calcium 8.3 L Total Bilirubin 1.8 H Direct Bilirubin 0.8 H AST 85 H Alkaline Phosphatase 327 H Albumin 2.6 L Discharge - Discharge Clinical Impression: left foot/ankle pain, cellulitis left ankle Condition: Stable Disposition: HOME, SELF-CARE Instructions: Cellulitis ([facility]), Cephalexin ([facility]) Additional Instructions: *You have been treated for left ankle\foot injury, cellulitis *Take medication as prescribed *Monitor your skin for signs of increasing infection such as increasing pain, redness, swelling, warmth *Rest ice elevate your ankle *Follow up with a primary care provider within 1 week for recheck *Return to ED for signs of increasing infection, worsening condition, changes, needs, inserts Monitor your blood pressure. Your blood pressure was elevated today. This may be because you were anxious, in pain or because you need medication. It is important to follow up with your primary care provider for full evaluation. Prescriptions: Cephalexin Monohydrate [Keflex 500 mg Capsule] 500 mg PO QID #20 capsule Forms: Elevated Blood Pressure Referrals: CONNER OSULLIVAN PA-C [Primary Care Provider] - Follow up in 1 week
--- NOTE | 2019-05-13 08:33 | RADIOLOGY REPORT (SQ) ---
EXAM DESCRIPTION: ANKLE LEFT AP/LATERAL COMPLETED DATE/TIME: 05/13/2019 8:04 am REASON FOR STUDY: Ankle Injury COMPARISON: None. NUMBER OF VIEWS: Two views. TECHNIQUE: AP and lateral radiographic images acquired of the left ankle. LIMITATIONS: None. FINDINGS: MINERALIZATION: Normal. BONES: No acute fracture or dislocation. No worrisome bone lesions. JOINTS: No effusions. SOFT TISSUES: Soft tissue swelling. No foreign body. OTHER: No other significant finding. IMPRESSION: SOFT TISSUE SWELLING. NO ACUTE BONY FINDINGS. TECHNICAL DOCUMENTATION: JOB ID: [id number] [email or web address]- All Rights Reserved Reading location - IP/workstation name: [email or web address]
[2019-05-13 09:10] LABS: ABSOLUTE EOSINOPHILS # (AUTO) 0.1 10^3/uL (0.0-0.6); ABSOLUTE LYMPHOCYTES (AUTO) 0.6 10^3/uL (0.5-4.7); ABSOLUTE MONOCYTES (AUTO) 0.3 10^3/uL (0.1-1.4); ABSOLUTE NEUT (AUTO) 1.9 10^3/uL (1.7-8.2); BASOPHILS % (AUTO) 1.2 % (0-2); LYMPHOCYTES % (AUTO) 19.7 % (13-45); MEAN CORPUSCULAR HEMOGLOBIN 31.9 pg (27.0-33.4); MEAN CORPUSCULAR HGB CONC 34.1 g/dL (32.0-36.0); MEAN CORPUSCULAR VOLUME 94 fl (80-97); MONOCYTES % (AUTO) 10.2 % (3-13); RED BLOOD COUNT 4.69 10^6/uL (4.35-5.55); RED CELL DISTRIBUTION WIDTH 14.9 % (11.5-14.0); SEGMENTED NEUTROPHILS % (AUTO) 65.9 % (42-78); TOTAL CELLS COUNTED % (AUTO) 100 %; WHITE BLOOD COUNT 2.8 10^3/uL (4.0-10.5)
[2019-05-13 09:24] LABS: ALBUMIN 2.6 g/dL (3.5-5.0); ALKALINE PHOSPHATASE 327 U/L (38-126); ASPARTATE AMINO TRANSFERASE 85 U/L (17-59); BILIRUBIN,DIRECT 0.8 mg/dL (0.0-0.4); BILIRUBIN,TOTAL 1.8 mg/dL (0.2-1.3); BLOOD UREA NITROGEN 11 mg/dL (7-20); CALCIUM 8.3 mg/dL (8.4-10.2); CARBON DIOXIDE 36 mmol/L (22-30); CHLORIDE 103 mmol/L (98-107); GLUCOSE 137 mg/dL (75-110); POTASSIUM 3.9 mmol/L (3.6-5.0); TOTAL PROTEIN 7.1 g/dL (6.3-8.2)
[2019-05-13 09:30] LABS: ANION GAP 3 (5-19)
[2019-05-13 09:41] LABS: PLATELET COUNT 62 10^3/uL (150-450)
[2019-05-13 10:46] VITALS: BP 137/84
== END 2019-05-13 10:38 | disposition home or self-care (01) ==
LOC: ER 07:31
DX: L03.116 Cellulitis of left lower limb (principal); M79.672 Pain in left foot; M25.572 Pain in left ankle and joints of left foot; X50.9XXA Other and unspecified overexertion or strenuous movements or postures, initial encounter; R14.0 Abdominal distension (gaseous); J44.9 Chronic obstructive pulmonary disease, unspecified; Z99.81 Dependence on supplemental oxygen; Z87.891 Personal history of nicotine dependence; Z79.891 Long term (current) use of opiate analgesic
CPT/HCPCS: 36415; 80053; 85025; 99283

== ENCOUNTER 2019-09-12 18:05 | Emergency (ER) | payer MEDICARE ==
--- NOTE | 2019-09-12 18:16 | ER Document Report ---
ED Medical Screen (RME) - General Chief Complaint: Swelling of Lower Extremity Stated Complaint: ARM/LEG PAIN, SWELLING Time Seen by Provider: 09/12/19 18:12 Primary Care Provider: CONNER OSULLIVAN PA-C [Primary Care Provider] - Follow up as needed Notes: Patient is a 54-year-old male who presents to the emergency department with a chief complaint of right upper extremity pain and swelling. Patient also states that he has right knee pain. He states that his symptoms started 3 days ago and both symptoms started together. Denies any fevers, body aches, or chills. Exam: Tenderness noted to the right knee. Edema and erythema noted to right upper extremity. I have greeted and performed a rapid initial assessment of this patient. A comprehensive ED assessment and evaluation of the patient, analysis of test results and completion of medical decision making process will be conducted by an additional ED providers. TRAVEL OUTSIDE OF THE [place] IN LAST 30 DAYS: No - Related Data Allergies/Adverse Reactions: No Known Allergies Allergy (Verified 09/12/19 18:16) Past Medical History - Social History Chew tobacco use (# tins/day): No Frequency of alcohol use: None Drug Abuse: None - Past Medical History Cardiac Medical History: Reports: Hx Peripheral Vascular Disease Pulmonary Medical History: Reports: Hx COPD Endocrine Medical History: Denies: Hx Diabetes Mellitus Type 1, Hx Diabetes Mellitus Type 2 Renal/ Medical History: Denies: Hx Peritoneal Dialysis GI Medical History: Reports: Hx Cirrhosis, Hx Hepatitis Musculoskeltal Medical History: Reports Hx Arthritis, Reports Hx Musculoskeletal Deformity, Reports Hx Musculoskeletal Trauma Infectious Medical History: Reports: Hx Hepatitis Past Surgical History: Reports: Hx Orthopedic Surgery - neck, hips, back - Immunizations Hx Diphtheria, Pertussis, Tetanus Vaccination: Yes Physical Exam - Vital signs Vitals: Temp Pulse Resp BP Pulse Ox 98.2 F 87 22 H 165/67 H 93 09/12/19 18:10 09/12/19 18:10 09/12/19 18:10 09/12/19 18:10 09/12/19 18:10 Course - Vital Signs Vital signs: Temp Pulse Resp BP Pulse Ox 98.2 F 87 22 H 165/67 H 93 09/12/19 18:10 09/12/19 18:10 09/12/19 18:10 09/12/19 18:10 09/12/19 18:10 Doctor's Discharge - Discharge Referrals: CONNER OSULLIVAN PA-C [Primary Care Provider] - Follow up as needed
[2019-09-12] MEDS ORDERED: METHADONE HCL 10 MG TABLET PO ONE (18:43)
[2019-09-12] MEDS ORDERED: OXYCODONE-ACETAMINOPHEN 5-325 MG TABLET PO ONE (18:43)
[2019-09-12 18:44] LABS: ABSOLUTE EOSINOPHILS # (AUTO) 0.1 10^3/uL (0.0-0.6); ABSOLUTE LYMPHOCYTES (AUTO) 0.8 10^3/uL (0.5-4.7); ABSOLUTE MONOCYTES (AUTO) 0.5 10^3/uL (0.1-1.4); BASOPHILS % (AUTO) 0.7 % (0-2); EOSINOPHILS % (AUTO) 3.1 % (0-6); HEMATOCRIT 46.4 % (37.9-51.0); LYMPHOCYTES % (AUTO) 17.8 % (13-45); MEAN CORPUSCULAR HEMOGLOBIN 31.5 pg (27.0-33.4); MEAN CORPUSCULAR HGB CONC 34.4 g/dL (32.0-36.0); MEAN CORPUSCULAR VOLUME 91 fl (80-97); MONOCYTES % (AUTO) 11.7 % (3-13); RED BLOOD COUNT 5.07 10^6/uL (4.35-5.55); RED CELL DISTRIBUTION WIDTH 15.6 % (11.5-14.0); SEGMENTED NEUTROPHILS % (AUTO) 66.7 % (42-78); TOTAL CELLS COUNTED % (AUTO) 100 %; WHITE BLOOD COUNT 4.4 10^3/uL (4.0-10.5)
--- NOTE | 2019-09-12 18:51 | ER Document Report ---
ED General - General Chief Complaint: Swelling Stated Complaint: ARM/LEG PAIN, SWELLING Time Seen by Provider: 09/12/19 18:12 Primary Care Provider: CONNER OSULLIVAN PA-C [Primary Care Provider] - Follow up as needed Notes: 54-year-old male presents emergency department complaining of right forearm swelling for the past 4 days as well as redness. Patient states that he thinks he may have been bitten by something on his right arm but does not recall being bitten. Patient also states that at the same time he developed pain in his right leg just underneath his kneecap. States that he has some swelling in his right calf. Cannot recall any specific injury. Denies any numbness, tingling or weakness in either his right upper or lower extremity. Denies any history of DVT or PE. Denies any chest pain or shortness of breath. TRAVEL OUTSIDE OF THE [place] IN LAST 30 DAYS: No - Related Data Allergies/Adverse Reactions: No Known Allergies Allergy (Verified 09/12/19 18:16) Past Medical History - General Information source: Patient - Social History Smoking Status: Former Smoker Chew tobacco use (# tins/day): No Frequency of alcohol use: None Drug Abuse: None Family History: Reviewed & Not Pertinent Patient has suicidal ideation: No Patient has homicidal ideation: No - Past Medical History Cardiac Medical History: Reports: Hx Peripheral Vascular Disease Pulmonary Medical History: Reports: Hx COPD Endocrine Medical History: Denies: Hx Diabetes Mellitus Type 1, Hx Diabetes Mellitus Type 2 Renal/ Medical History: Denies: Hx Peritoneal Dialysis GI Medical History: Reports: Hx Cirrhosis, Hx Hepatitis Musculoskeletal Medical History: Reports Hx Arthritis, Reports Hx Musculoskeletal Deformity, Reports Hx Musculoskeletal Trauma Infectious Medical History: Reports: Hx Hepatitis Past Surgical History: Reports: Hx Orthopedic Surgery - neck, hips, back - Immunizations Hx Diphtheria, Pertussis, Tetanus Vaccination: Yes Review of Systems - Review of Systems Constitutional: No symptoms reported Musculoskeletal: See HPI Skin: See HPI -: Yes All other systems reviewed and negative Physical Exam - Vital signs Vitals: Temp Pulse Resp BP Pulse Ox 98.2 F 87 22 H 165/67 H 93 09/12/19 18:10 09/12/19 18:10 09/12/19 18:10 09/12/19 18:10 09/12/19 18:10 Interpretation: Hypertensive, Tachypneic - Notes Notes: GENERAL: Alert, interacts well. No acute distress. HEAD: Normocephalic, atraumatic EYES: Pupils equal, round and reactive to light, extraocular movements intact. ENT: Oral mucosa moist, tongue midline. NECK: Full range of motion, supple, trachea midline. LUNGS: Clear to auscultation bilaterally, no wheezes, rales or rhonchi, no respiratory distress. HEART: Regular rate and rhythm, no murmurs, gallops, rubs. ABDOMEN: Soft, nontender, nondistended, bowel sounds present in all 4 quadrants. EXTREMITIES: Moves all 4 extremities spontaneously, right forearm is erythematous starting at the elbow radiating down to the hand it is mostly on the dorsal aspect although it does start at the ulnar aspect of the elbow and cr oss dorsally to the radial aspect of the distal forearm, there is some swelling although the compartments are not tense, there is no break in the skin, no evidence of abscess at this time, no fluctuance. Trace pitting edema. Exam of right knee reveals no ligamentous laxity, normal anterior and posterior drawer test, no pain varus or valgus stress, no pain with movement of patella, no swelling of the kneecap itself, right lower extremity below the patella does have 1+ pitting edema, no edema to the left lower extremity, radial and dorsalis pedis pulses 2/4 bilaterally. No cyanosis. NEUROLOGICAL: Alert and oriented x3, normal speech. PSYCH: Normal mood, normal affect. SKIN: Dry and flaking skin noted to the bilateral lower extremities consistent with chronic woody cellulitis from venous insufficiency. Course - Re-evaluation Re-evalutation: 09/12/19 18:51 Patient notes that he is due for his chronic pain medications that are prescribed through [facility] pain management in the form of methadone 10 mg and Percocet 10/325. These are due at 7 PM. These will be ordered here. 09/12/19 22:03 CBC shows thrombocytopenia with platelets of 72, this appears chronic for him, CMP shows elevated potassium at 5.4, total and direct bilirubin chronically elevated at 1.9 and 0.6 as per usual, venous duplex ultrasounds were ordered of the upper and lower extremity to look for DVT. These are negative. Patient had no specific traumatic injury to his right knee, no indication for x- ray at this time. Patient already has an orthopedic surgeon, will continue to follow-up with them if the pain continues. Right upper extremity consistent with cellulitis, will treat with Bactrim and Keflex. He will return if it has not shown at least slight improvement in 4 days or if it has worsened over the next 2 days. - Vital Signs Vital signs: Temp Pulse Resp BP Pulse Ox 98.2 F 87 22 H 165/67 H 93 09/12/19 18:10 09/12/19 18:10 09/12/19 18:10 09/12/19 18:10 09/12/19 18:10 - Laboratory Result Diagrams: 09/12/19 18:25 09/12/19 18:25 Laboratory results interpreted by me: 09/12/19 09/12/19 09/12/19 18:25 18:25 18:25 RDW 15.6 H Plt Count 72 L PT 15.9 H Potassium 5.4 H Carbon Dioxide 38 H Anion Gap 1 L Glucose 131 H Total Bilirubin 1.9 H Direct Bilirubin 0.6 H AST 90 H Alkaline Phosphatase 305 H Albumin 2.8 L Discharge - Discharge Clinical Impression: Right forearm cellulitis, Thrombocytopenia Right knee pain Qualifiers: Chronicity: acute Qualified Code(s): M25.561 - Pain in right knee Condition: Stable Disposition: HOME, SELF-CARE Additional Instructions: Cellulitis You have an infection of your skin and underlying soft tissues called cellulitis. This is due to bacteria, which can enter through any break in the skin, or even through an irritated hair follicle. Untreated, cellulitis will usually worsen. Antibiotics are required. Usually, warm packs or warm soaks, and elevation of the infected area are recommended. You should start getting better within 48 hours. Most infections respond quickly to the right medication. Follow-up care is important, however, to check for abscess (boil) formation, unsuspected foreign body, or resistant infection. If you develop fever, chills, or if the area of infection is becoming rapidly more swollen or painful, call the doctor at once. Prescriptions: Sulfamethoxazole/Trimethoprim [Bactrim Ds Tablet] 1 each PO BID #20 tablet Cephalexin Monohydrate [Keflex 500 mg Capsule] 1,000 mg PO BID #40 capsule Referrals: CONNER OSULLIVAN PA-C [Primary Care Provider] - Follow up as needed
[2019-09-12 18:53] LABS: INTERNATIONAL RATION (INR) 1.26; PROTHROMBIN TIME 15.9 SEC (11.4-15.4)
[2019-09-12 18:54] LABS: PARTIAL THROMBOPLASTIN TIME 34.3 SEC (23.5-35.8)
[2019-09-12 19:00] LABS: ALBUMIN 2.8 g/dL (3.5-5.0); ALKALINE PHOSPHATASE 305 U/L (38-126); ASPARTATE AMINO TRANSFERASE 90 U/L (17-59); BILIRUBIN,DIRECT 0.6 mg/dL (0.0-0.4); BILIRUBIN,TOTAL 1.9 mg/dL (0.2-1.3); BLOOD UREA NITROGEN 13 mg/dL (7-20); CALCIUM 8.8 mg/dL (8.4-10.2); GLUCOSE 131 mg/dL (75-110); TOTAL PROTEIN 7.3 g/dL (6.3-8.2)
[2019-09-12 19:07] LABS: CARBON DIOXIDE 38 mmol/L (22-30); CHLORIDE 101 mmol/L (98-107); POTASSIUM 5.4 mmol/L (3.6-5.0)
[2019-09-12 19:12] LABS: ANION GAP 1 (5-19)
[2019-09-12 19:17] LABS: PLATELET COUNT 72 10^3/uL (150-450)
[2019-09-12] MEDS ORDERED: CEPHALEXIN 500 MG CAPSULE PO ONE (22:05)
[2019-09-12] MEDS ORDERED: SULFAMETHOXAZOLE/TRIMETHOPRIM 800-160 MG TABLET PO ONE (22:05)
--- NOTE | 2019-09-12 22:09 | RADIOLOGY REPORT (SQ) ---
EXAM DESCRIPTION: US EXTREMITY VEINS UNILATERAL COMPLETED DATE/TME: 09/12/2019 18:15 CLINICAL HISTORY: 54 years Male RUE swelling/pain COMPARISON: None. TECHNIQUE: Duplex imaging performed to evaluate the right upper extremity venous structures. Compression imaging and augmentation imaging performed. FINDINGS: No thrombus is identified in the right upper extremity venous structures. IMPRESSION: No DVT is identified in the right upper extremity.
--- NOTE | 2019-09-12 22:10 | RADIOLOGY REPORT (SQ) ---
EXAM DESCRIPTION: US EXTREMITY VEINS UNILATERAL COMPLETED DATE/TME: 09/12/2019 18:17 CLINICAL HISTORY: 54 years Male RLE pain COMPARISON: None. TECHNIQUE: Duplex imaging performed to evaluate the right lower extremity venous structures. Compression imaging and augmentation imaging performed. The common femoral, superficial femoral, popliteal, greater saphenous and posterior tibial veins were examined. FINDINGS: No thrombus is identified in the right lower extremity venous structures. IMPRESSION: No DVT is identified in the right lower extremity.
[2019-09-12 22:26] VITALS: BP 132/65
== END 2019-09-12 22:25 | disposition home or self-care (01) ==
LOC: ER 18:05
DX: D69.6 Thrombocytopenia, unspecified (principal); L03.113 Cellulitis of right upper limb; M25.561 Pain in right knee; J44.9 Chronic obstructive pulmonary disease, unspecified
CPT/HCPCS: 99284; 36415; 87040; 85025; 85610; 85730; 80053; 93971 ×2; A9270 ×4

== ENCOUNTER 2019-09-23 11:35 | Emergency (ER) | payer MEDICARE ==
--- NOTE | 2019-09-23 11:48 | ER Document Report ---
ED Extremity Problem, Lower - General Chief Complaint: Knee Pain Stated Complaint: KNEE PAIN Time Seen by Provider: 09/23/19 11:38 Primary Care Provider: CONNER OSULLIVAN PA-C [ALLIED HEALTH PROFESSIONAL] - Follow up as needed Notes: CHIEF COMPLAINT: Right knee injury 2 days ago HPI: 54-year-old male with history of chronic pain issues in the back presenting for 2 to 3 days of right knee pain. States he went to stand up and felt a "pop" over the anterior knee. Patient now with difficulty flexing and extending the leg, normally walks with a walker. States he does take Percocet and methadone daily. Patient does see Dr. Galvez orthopedics but did not call their office prior to calling EMS to bring him to the emergency department for his knee pain today. Patient sees Clau Carrion for pain management issues ROS: See HPI - all other systems were reviewed and are otherwise negative Constitutional: no fever Integumentary: no new rash Allergy: no hives Musculoskeletal: + extremity pain or swelling Neurological: no numbness/tingling MEDICATIONS: I agree with the patient medications as charted by the RN. ALLERGIES: I agree with the allergies as charted by the RN. PAST MEDICAL HISTORY/PAST SURGICAL HISTORY: Reviewed and agree as charted by RN. SOCIAL HISTORY: Reviewed and agree as charted by RN. FAMILY HISTORY: No significant familial comorbid conditions directly related to patient complaint EXAM: Reviewed vital signs as charted by RN. CONSTITUTIONAL: Alert and oriented and responds appropriately to questions. Well-appearing; well-nourished HEAD: Normocephalic; atraumatic EYES: PERRL; Conjunctivae clear, sclerae non-icteric ENT: normal nose; no rhinorrhea; moist mucous membranes NECK: Supple without meningismus CARD: symmetric distal pulses RESP: Normal chest excursion without splinting or tachypnea ABD/GI: non-distended; soft BACK: The back appears normal EXT: Chronic edema bilateral lower extremities is noted. Patient with some limited flexion of the right leg at the knee secondary to complaints of pain. There is no laxity on varus or valgus rotation. No ballottement of the patella. No tenderness over the patella on palpation. There is mild tenderness over the inferior aspect of the right knee anteriorly. Negative drawer sign. Popliteal, dorsalis pedis and posterior tibial pulses present in the right lower extremity. SKIN: Normal color for age and race; warm; dry; good turgor; no acute lesions noted NEURO: Motor and sensory function intact PSYCH: The patient's mood and manner are appropriate. Grooming and personal hygiene are appropriate. MDM: 54-year-old male with possible knee injury 2 days ago. Will obtain x-ray for fracture. Patient was able to weight-bear with assistance and also utilizing his walker. If x-ray negative for fracture will place in a knee immobilizer, follow-up with his orthopedist. He will likely need outpatient MRI. Patient is on Percocet 5 mg tablets every 6 hours and methadone 10 mg daily, filled his last prescription September 04 for a 1 month supply. TRAVEL OUTSIDE OF THE [place] IN LAST 30 DAYS: No - Related Data Allergies/Adverse Reactions: No Known Allergies Allergy (Verified 09/23/19 12:18) Past Medical History - Social History Smoking Status: Unknown if Ever Smoked Family History: Reviewed & Not Pertinent - Past Medical History Cardiac Medical History: Reports: Hx Peripheral Vascular Disease Pulmonary Medical History: Reports: Hx COPD Endocrine Medical History: Denies: Hx Diabetes Mellitus Type 1, Hx Diabetes Mellitus Type 2 Renal/ Medical History: Denies: Hx Peritoneal Dialysis GI Medical History: Reports: Hx Cirrhosis, Hx Hepatitis Musculoskeletal Medical History: Reports Hx Arthritis, Reports Hx Musculoskeletal Deformity, Reports Hx Musculoskeletal Trauma Infectious Medical History: Reports: Hx Hepatitis Past Surgical History: Reports: Hx Orthopedic Surgery - neck, hips, back - Immunizations Hx Diphtheria, Pertussis, Tetanus Vaccination: Yes Course - Re-evaluation Re-evalutation: 09/23/19 12:31 X-ray imaging does not show evidence of a fracture or other abnormality. Will place in a knee immobilizer he may continue to use his walker. Follow-up with orthopedics. He may continue his normal pain medication regimen, he may increase his Percocet use to every 4 hours if needed he is to call his pain ma nagement physician to discuss Discharge - Discharge Clinical Impression: Right knee injury Qualifiers: Encounter type: initial encounter Qualified Code(s): S89.91XA - Unspecified injury of right lower leg, initial encounter Condition: Stable Disposition: HOME, SELF-CARE Additional Instructions: 1. ice and elevate the lower extremity as much as possible 2. utilize the crutches as instructed, weight bearing as tolerated with splint on 3. Continue your previous regimen of Percocet and methadone for pain. You may increase your Percocet use to every 4 hours as needed. Call your pain management physician to discuss the increase in your medication dosing in case you need further pain medicines prescribed 4. do not sleep in the knee immobilizer, take off at night or rest. 5. The x-ray today did not show evidence of a bony injury. Follow-up with your orthopedist for further evaluation and possible outpatient MRI if deemed necessary. Call for appointment Referrals: CONNER OSULLIVAN PA-C [ALLIED HEALTH PROFESSIONAL] - Follow up as needed ANDRE GALVEZ MD [ACTIVE STAFF] - Follow up as needed
--- NOTE | 2019-09-23 12:26 | RADIOLOGY REPORT (SQ) ---
EXAM DESCRIPTION: KNEE RIGHT 4 VIEWS IMAGES COMPLETED DATE/TIME: 09/23/2019 12:05 pm REASON FOR STUDY: pain COMPARISON: None. NUMBER OF VIEWS: Four views. TECHNIQUE: AP, lateral, and both oblique radiographic images acquired of the right knee. LIMITATIONS: None. FINDINGS: MINERALIZATION: Severe osteopenia. BONES: No acute fracture or dislocation. No worrisome bone lesions. No significant osteophytes. JOINT: No effusion. No chondrocalcinosis. OTHER: No other significant finding. IMPRESSION: NEGATIVE STUDY OF THE RIGHT KNEE. NO EXPLANATION FOR PAIN. TECHNICAL DOCUMENTATION: JOB ID: [id number] 2010 [employer] All Rights Reserved Reading location - IP/workstation name: [email or web address]
[2019-09-23] MEDS ORDERED: MORPHINE SULFATE 10 MG/ML INJ IM ONE (12:30)
[2019-09-23 13:02] VITALS: BP 127/58
== END 2019-09-23 13:30 | disposition home or self-care (01) ==
LOC: ER 11:35
DX: S89.91XA Unspecified injury of right lower leg, initial encounter (principal); M25.561 Pain in right knee; M54.9 Dorsalgia, unspecified; G89.29 Other chronic pain; M79.604 Pain in right leg; M79.89 Other specified soft tissue disorders; X58.XXXA Exposure to other specified factors, initial encounter; Z79.899 Other long term (current) drug therapy; J44.9 Chronic obstructive pulmonary disease, unspecified
CPT/HCPCS: 99283; 96372; 73564; J2270

== ENCOUNTER 2020-07-03 11:51 | Inpatient (IN) | payer MEDICARE ==
--- NOTE | 2020-07-03 12:52 | RADIOLOGY REPORT (SQ) ---
EXAM DESCRIPTION: CHEST SINGLE VIEW IMAGES COMPLETED DATE/TIME: 07/03/2020 12:43 pm REASON FOR STUDY: sob COMPARISON: AP view of the chest from 08/10/2018. EXAM PARAMETERS: NUMBER OF VIEWS: One view. TECHNIQUE: An AP view of the chest was obtained. RADIATION DOSE: NA LIMITATIONS: None. FINDINGS: LUNGS AND PLEURA: There are pleural and parenchymal opacities in the mid and inferior aspe ct of the left hemithorax that obscure the contour of the hemidiaphragm and blunt the lateral costoph renic sulcus. There are also basilar predominant patchy parenchymal opacities in the right lung. Th e right lateral costophrenic sulcus is blunted. There is no pneumothorax MEDIASTINUM AND HILAR STRUCTURES: No mediastinal or hilar contour abnormality. HEART AND VASCULAR STRUCTURES: The cardiac silhouette is partially obscured. BONES: No acute findings. HARDWARE: ACDF hardware. OTHER: No other finding. IMPRESSION: 1. Pleural and parenchymal opacities in the mid and inferior aspect of the left hemitho rax that likely represent a combination of pleural fluid, atelectasis and/ or in the proper clinical setting consolidation. 2. Patchy basilar predominant parenchymal opacities in the right lung - clinical correlation for sig ns and symptoms of volume overload is recommended. TECHNICAL DOCUMENTATION: JOB ID: [id number] 2010 [employer]- All Rights Reserved Reading location - IP/workstation name: [email or web address]
[2020-07-03 12:59] LABS: ABSOLUTE EOSINOPHILS # (AUTO) 0.1 10^3/uL (0.0-0.6); ABSOLUTE LYMPHOCYTES (AUTO) 0.5 10^3/uL (0.5-4.7); ABSOLUTE MONOCYTES (AUTO) 0.3 10^3/uL (0.1-1.4); ABSOLUTE NEUT (AUTO) 2.3 10^3/uL (1.7-8.2); BASOPHILS % (AUTO) 0.7 % (0-2); EOSINOPHILS % (AUTO) 2.9 % (0-6); HEMATOCRIT 50.3 % (37.9-51.0); HEMOGLOBIN 16.6 g/dL (13.5-17.0); LYMPHOCYTES % (AUTO) 14.7 % (13-45); MEAN CORPUSCULAR HEMOGLOBIN 30.9 pg (27.0-33.4); MEAN CORPUSCULAR HGB CONC 33.1 g/dL (32.0-36.0); MEAN CORPUSCULAR VOLUME 94 fl (80-97); MONOCYTES % (AUTO) 8.6 % (3-13); RED BLOOD COUNT 5.38 10^6/uL (4.35-5.55); RED CELL DISTRIBUTION WIDTH 15.7 % (11.5-14.0); SEGMENTED NEUTROPHILS % (AUTO) 73.1 % (42-78); TOTAL CELLS COUNTED % (AUTO) 100 %; WHITE BLOOD COUNT 3.2 10^3/uL (4.0-10.5)
[2020-07-03 13:10] LABS: ALKALINE PHOSPHATASE 295 U/L (38-126); ASPARTATE AMINO TRANSFERASE 96 U/L (17-59); BILIRUBIN,TOTAL 2.7 mg/dL (0.2-1.3); BLOOD UREA NITROGEN 10 mg/dL (7-20); CALCIUM 8.5 mg/dL (8.4-10.2); CARBON DIOXIDE 39 mmol/L (22-30); CHLORIDE 100 mmol/L (98-107); GLUCOSE 199 mg/dL (75-110); POTASSIUM 4.2 mmol/L (3.6-5.0); TOTAL PROTEIN 6.9 g/dL (6.3-8.2)
[2020-07-03 13:16] LABS: ANION GAP 0 (5-19)
[2020-07-03 13:27] LABS: PLATELET COUNT 47 10^3/uL (150-450)
--- NOTE | 2020-07-03 13:42 | ER Document Report ---
ED General - General Chief Complaint: Breathing Difficulty Stated Complaint: SHORTNESS OF BREATH Time Seen by Provider: 07/03/20 13:08 Primary Care Provider: DANIELA VASQUEZ NP [Primary Care Provider] - Follow up as needed TRAVEL OUTSIDE OF THE [place] IN LAST 30 DAYS: No - HPI Notes: Patient is a 55-year-old male who presents emergency department for evaluation of difficulty breathing. The patient is a very difficult historian. He states his knows most of his information, but she was not allowed back because of Covid restrictions. He states has been more short of breath for about a week. He is on 2 L of oxygen per nasal cannula continuously. Over the last week he bonilla s been gradually increasing it, and it is really not helping. He denies any fevers or chills. No anosmia or loss of taste. He denies any chest pain. He states is not coughing. No vomiting or diarrhea. He states that his swelling, which is extensive, seems to be at about baseline. Eating and drinking normally. He has a bit of a headache this been ongoing for the last week as well. He denies any associated visual changes. Speaking and swallowing normally, moving his arms and legs at baseline. He is wearing a walking boot on his left lower extremity that he states he has had on for at least 2 years. He states that he was told it was because of a fracture. - Related Data Allergies/Adverse Reactions: No Known Allergies Allergy (Verified 09/23/19 12:18) Home Medications: Methadone 10 mg every 4 hours, Percocet 5/325 every 4 hours, Metformin 500 mg twice daily, Lasix 40 mg daily Past Medical History - General Information source: Patient, [facility] Records - Social History Smoking Status: Former Smoker Family History: Reviewed & Not Pertinent - Past Medical History Cardiac Medical History: Reports: Hx Peripheral Vascular Disease Pulmonary Medical History: Reports: Hx COPD Endocrine Medical History: Reports: Hx Diabetes Mellitus Type 2. Denies: Hx Diabetes Mellitus Type 1 Renal/ Medical History: Denies: Hx Peritoneal Dialysis GI Medical History: Reports: Hx Cirrhosis, Hx Hepatitis - C Musculoskeletal Medical History: Reports Hx Arthritis, Reports Hx Musculoskeletal Deformity, Reports Hx Musculoskeletal Trauma Infectious Medical History: Reports: Hx Hepatitis Past Surgical History: Reports: Hx Orthopedic Surgery - neck, hips, back - Immunizations Hx Diphtheria, Pertussis, Tetanus Vaccination: Yes Review of Systems - Review of Systems Constitutional: No symptoms reported EENT: No symptoms reported Cardiovascular: No symptoms reported Respiratory: See HPI Gastrointestinal: No symptoms reported Genitourinary: No symptoms reported Musculoskeletal: See HPI Skin: No symptoms reported Neurological/Psychological: No symptoms reported Physical Exam - Vital signs Vitals: Temp Pulse Resp BP Pulse Ox 98.3 F 95 22 H 171/78 H 80 L 07/03/20 11:58 07/03/20 11:58 07/03/20 11:58 07/03/20 11:58 07/03/20 11:58 - Notes Notes: This is a 55-year-old male who appears much older than his stated age, no acute distress. He is approximately 92% on 6 L, but respiratory rate is between 12 and 14, he does not appear conversationally dyspneic. Vital signs reviewed, please refer to chart. Head is normocephalic, atraumatic. Pupils equal round, reactive to light. Neck is supple without meningismus. Heart is regular rate and rhythm. Lungs reveal markedly diminished breath sounds on the left to the mid lung region. Abdomen is markedly distended, reducible umbilical hernia noted, nontender, normoactive bowel sounds throughout. Skin of the abdomen does show pitting edema. Pitting edema noted into bilateral lower extremities with chronic venous stasis changes noted. Posterior calves are nontender. Peripheral pulses are equal. Skin is warm and dry. Patient is awake, alert, neurological exam is nonfocal. Course - Re-evaluation Re-evalutation: 07/03/20 13:44 Patient presents to the emergency department for evaluation via EMS. He was found to be markedly hypoxic. He is maintaining on 6 L here. Laboratory investigations were ordered as per protocol. I did add troponin, proBNP, coags. I reviewed this patient's history. He has had a large pleural effusion in the past which required thoracentesis. I did add blood cultures. I am awaiting Covid test results. Patient is currently stable, we will continue to monitor. 07/03/20 14:29 Patient's platelet count is low, but his coags are otherwise normal. I did consult with radiology, notified him of this result, and they still feel comfortable going forward with the procedure. Will discuss with patient. 07/03/20 14:36 Patient notified of his low platelet count, and the increased risk of bleeding and complications with his thoracentesis. He voiced understanding and still would like to go forward with it. He has been covered for pneumonia, his Covid test was negative. I spoke with Dr. Lockhart, he will admit the patient for further care. - Vital Signs Vital signs: Temp Pulse Resp BP Pulse Ox 98.4 F 95 31 H 157/82 H 90 L 07/03/20 12:56 07/03/20 11:58 07/03/20 14:01 07/03/20 14:00 07/03/20 14:01 - Laboratory Results Result Diagrams: 07/03/20 12:28 07/03/20 12:28 Laboratory Results Interpreted: 07/03/20 07/03/20 12:28 12:28 WBC 3.2 L RDW 15.7 H Plt Count 47 L Carbon Dioxide 39 H Anion Gap 0 L Creatinine 0.47 L Glucose 199 H Total Bilirubin 2.7 H Direct Bilirubin 1.0 H AST 96 H ALT 82 H Alkaline Phosphatase 295 H Albumin 3.0 L Critical Laboratory Results Reviewed: No Critical Results - Radiology Results Radiology Results Interpreted: 07/03/20 14:17 Chest X-Ray 07/03/20 12:04 IMPRESSION: 1. Pleural and parenchymal opacities in the mid and inferior aspect of the left hemithorax that likely represent a combination of pleural fluid, atelectasis and/ or in the proper clinical setting consolidation. 2. Patchy basilar predominant parenchymal opacities in the right lung - clinical correlation for signs and symptoms of volume overload is recommended. Critical Radiology Results Reviewed: No Critical Results - EKG Interpretation by Me Additional EKG results interpreted by me: 07/03/20 14:17 Sinus mechanism with a rate of 86 bpm. Left axis deviation. IVCD. Nonspecific T wave changes, but no acute ST elevation or depression concerning for infarction or ischemia. No old studies immediately available for comparison. Discharge - Discharge Clinical Impression: Pleural effusion, Hypoxia, Acute respiratory failure with hypoxia, Thrombocyt openia Condition: Stable Disposition: ADMITTED INPATIENT Admitting Provider: Chantelle (Hospitalist) Unit Admitted: Medical Floor Referrals: DANIELA VASQUEZ NP [Primary Care Provider] - Follow up as needed
[2020-07-03 13:48] LABS: INTERNATIONAL RATION (INR) 1.12; PROTHROMBIN TIME 14.6 SEC (11.4-15.4)
[2020-07-03 13:49] LABS: PARTIAL THROMBOPLASTIN TIME 35.4 SEC (23.5-35.8)
[2020-07-03 14:03] LABS: NT PRO BNP 119 pg/mL (<125)
[2020-07-03 14:04] LABS: TROPONIN I < 0.012 ng/mL
[2020-07-03] MEDS ORDERED: CEFTRIAXONE 1 GM/D5W RTU 1 GM/50 ML RTUPB IV ONE (14:16)
[2020-07-03] MEDS ORDERED: AZITHROMYCIN INJ 500 MG VIAL IV ONE (14:16)
[2020-07-03 15:23] LABS: APPEARANCE,URINE SLIGHTLY-CLOUDY; BILIRUBIN,URINE NEGATIVE (NEGATIVE); COLOR,URINE AMBER; GLUCOSE, URINE NEGATIVE (NEGATIVE); KETONES,URINE NEGATIVE (NEGATIVE); LEUKOCYTE ESTERASE,URINE TRACE (NEGATIVE); NITRITE,URINE POSITIVE (NEGATIVE); PROTEIN,URINE 100 mg/dL (NEGATIVE); URINE SPECIFIC GRAVITY 1.025
[2020-07-03] MEDS ORDERED: MAG HYDROX/AL HYDROX/SIMETH SUSP 30 ML UDCUP PO PRN (15:34)
[2020-07-03] MEDS ORDERED: ACETAMINOPHEN 325 MG TABLET PO PRN (15:34)
[2020-07-03] MEDS ORDERED: PROMETHAZINE HCL 25 MG TABLET PO PRN (15:34)
[2020-07-03] MEDS ORDERED: DEXTROSE 40% GEL 15 GM TUBE PO PRN ×2 (15:48)
[2020-07-03] MEDS ORDERED: DEXTROSE 50%-WATER 25 GM/50 ML DISP.SYRIN IV PRN ×2 (15:48)
[2020-07-03] MEDS ORDERED: GLUCAGON,HUMAN RECOMB 1 MG INJ IM PRN (15:48)
[2020-07-03] MEDS: INSULIN REG, HUMAN 100 UNIT/ML 3 ML VIAL (PYX) SUBCUT SCH ×2 (16:12→23:47)
[2020-07-03] MEDS ORDERED: AZITHROMYCIN 250 MG TABLET PO ONE (16:15)
[2020-07-03 16:28] LABS: FLUID APPEARANCE CLOUDY; FLUID COLOR YELLOW; FLUID SOURCE LUNG; FLUID VISCOSITY LIQUID
[2020-07-03] MEDS ORDERED: ALBUTEROL SULFATE 0.083% NEB 2.5 MG/3 ML AMPUL NEB PRN (16:32)
--- NOTE | 2020-07-03 16:32 | RADIOLOGY REPORT (SQ) ---
EXAM DESCRIPTION: U/S THORACENTESIS WITH IMAGING IMAGES COMPLETED DATE/TIME: 07/03/2020 4:11 pm REASON FOR STUDY: large pleural effusion COMPARISON: AP view of the chest from 07/03/2019. LIMITATIONS: None. PROCEDURE: The procedure, risks, benefits, and alternatives were discussed with the patient and the patient's family who then gave written consent. The left chest wall was then marked utilizing sonogr aphic guidance and a time-out was performed to document correct marking verification. The area around the selected percutaneous access site was then prepped and draped with 2% chlorhexidi ne utilizing standard sterile technique. After that, the selected access site was infiltrated with 8 ml of 1% lidocaine. A 6 Fr [id number] catheter was then introduced into the pleural space and the fluid was aspirated. After the fluid was aspirated, the catheter was removed and the entry site w as covered with a sterile bandage. No immediate complications were noted. Images acquired during the procedure were stored on PACS. The patient tolerated the procedure with local anesthesia. At the end of the procedure the patient's condition was unchanged from the preprocedural baseline. Documentation of [id number] time the proceduralist spent monitoring the patient: 15 minutes. FINDINGS: ENTRY SITE: Posterior left chest. FLUID VOLUME: 1000 mL. FLUID ANALYSIS: Cloudy yellow. OTHER: Fluid sent to the lab for analysis. IMPRESSION: Successful ultrasound-guided left-sided thoracentesis. COMMENT: Patient medication list reviewed: Yes- Quality ID# [id number]:Eligible professional attests to doc umenting in the medical record they obtained, updated, or reviewed the patient's current medications. TECHNICAL DOCUMENTATION: JOB ID: [id number] 2010 [employer]- All Rights Reserved Reading location - IP/workstation name: [email or web address]
[2020-07-03 16:41] LABS: FLUID TYPE PLEURAL
--- NOTE | 2020-07-03 16:52 | RADIOLOGY REPORT (SQ) ---
EXAM DESCRIPTION: CHEST SINGLE VIEW IMAGES COMPLETED DATE/TIME: 07/03/2020 4:09 pm REASON FOR STUDY: Thoracentesis post COMPARISON: None. EXAM PARAMETERS: NUMBER OF VIEWS: One view. TECHNIQUE: Single frontal radiographic view of the chest acquired. RADIATION DOSE: NA LIMITATIONS: None. FINDINGS: LUNGS AND PLEURA: Residual left pleural effusion. No pneumothorax. Cannot exclude a left pleural mass. This may represent fluid in the fissure. MEDIASTINUM AND HILAR STRUCTURES: No masses. Contour normal. HEART AND VASCULAR STRUCTURES: Heart normal in size. Normal vasculature. BONES: No acute findings. HARDWARE: None in the chest. OTHER: No other significant finding. IMPRESSION: No pneumothorax status post thoracentesis. Residual pleural effusion. Cannot entirely exclude a left pleural mass. Consider CT if clinically indicated. TECHNICAL DOCUMENTATION: JOB ID: [id number] 2010 [employer]- All Rights Reserved Reading location - IP/workstation name: [email or web address]
--- NOTE | 2020-07-03 17:06 | PDOC H&P ---
History of Present Illness Admission Date/PCP: 07/03/20 15:30 DANIELA VASQUEZ NP Patient complains of: Increasing shortness of breath History of Present Illness: DONTAE RODRIGUEZ JR is a 55 year old male with history of hepatitis C and ascites who has undergone TIPS procedure in the past. He also has a history of chronic pain from complications of surgery on his left ankle. He is a patient at [facility]. He has an albuterol rescue inhaler for likely mild COPD. He has diabetes mellitus secondary to steroid therapy. He has chronic ascites and lower extremity edema. He presents with increasing shortness of breath. Chest x-ray showed left pleural effusion but also infiltrates in the right base. He underwent thoracentesis despite a platelet count of only 47. He also has neutropenia with a white blood cell count of only 3.2. Urinalysis suggests infection and a culture was sent. In addition AST and ALT are mildly elevated and total bilirubin is 2.7. The patient underwent thoracentesis. Laboratory studies and microbiology studies have been ordered. The patient is going to be admitted for treatment of pneumonia. He does have le ukopenia and so is at increased risk for immunocompromise state. He is thrombocytopenic. 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 Laboratory studies were sent on the effusion to see if it is transudate of exudative. We will continue his chronic pain management regimen. During this hosp italization he will have Accu-Cheks and sliding scale coverage. He reports that the Metformin upsets his stomach and when he is home he actually takes half a tablet at breakfast and half tablet at lunch. He is on furosemide. His doses different than the medication reconciliation list the dose. He states that he takes 20 mg twice daily. Past Medical History Cardiac Medical History: Reports: Peripheral Vascular Disease, Other - Chronic lower extremity edema Pulmonary Medical History: Reports: Chronic Obstructive Pulmonary Disease (COPD) Endocrine Medical History: Reports: Diabetes Mellitus Type 2 Denies: Diabetes Mellitus Type 1 GI Medical History: Reports: Cirrhosis, Hepatitis Musculoskeltal Medical History: Reports: Arthritis Past Surgical History Past Surgical History: Reports: Orthopedic Surgery - Notable surgeries of neck, hips, back, Other - TIPS Social History Information Source: Patient Lives with: Spouse/Significant other Smoking Status: Former Smoker Electronic Cigarette use?: No Frequency of Alcohol Use: None Hx Recreational Drug Use: No Drugs: None Hx Prescription Drug Abuse: No - Advance Directive Resuscitation Status: Full Code Family History Family History: Reviewed & Not Pertinent Parental Family History Reviewed: Yes Children Family History Reviewed: NA Sibling(s) Family History Reviewed.: Yes Medication/Allergy Home Medications: Methadone HCl 10 mg PO Q6HP PRN 10/17/17 Oxycodone HCl/Acetaminophen [Percocet 5-325 mg Tablet] 1 tab PO Q6HP PRN 10/17/17 Furosemide [Lasix 40 mg Tablet] 60 mg PO DAILY 07/06/18 Metformin HCl [Metformin HCl ER] 500 mg PO BID 07/03/20 Allergies/Adverse Reactions: No Known Allergies Allergy (Verified 09/23/19 12:18) Review of Systems All systems: reviewed and no additional remarkable complaints except as stated Constitutional: PRESENT: fatigue Nose, Mouth, and Throat: PRESENT: other - Dry mouth Cardiovascular: PRESENT: edema Respiratory: PRESENT: cough, dyspnea Gastrointestinal: PRESENT: other - Abdominal distention Musculoskeletal: PRESENT: other - Chronic pain multiple joints Integumentary: PRESENT: other - Lower extremity pigment deposition chronic edema Hematologic/Lymphatic: PRESENT: other - Thrombocytopenia Physical Exam Vital Signs: Temp Pulse Resp BP Pulse Ox 98.1 F 95 17 150/84 H 89 L 07/03/20 15:47 07/03/20 11:58 07/03/20 16:01 07/03/20 16:01 07/03/20 16:01 Intake & Output 07/02/20 07/03/20 07/04/20 06:59 06:59 06:59 Intake Total 50 Balance 50 Weight 116.7 kg General appearance: PRESENT: no acute distress, cooperative, well-developed Head exam: PRESENT: atraumatic, normocephalic Eye exam: PRESENT: conjunctiva pink, EOMI, scleral icterus Ear exam: PRESENT: normal external ear exam. ABSENT: bleeding, drainage Mouth exam: PRESENT: dry mucosa, tongue midline Neck exam: ABSENT: carotid bruit, lymphadenopathy Respiratory exam: PRESENT: rales - Bilaterally. ABSENT: accessory muscle use Cardiovascular exam: PRESENT: RRR, +S1, +S2, systolic murmur - 2/6. ABSENT: bradycardia, diastolic murmur, irregular rhythm GI/Abdominal exam: PRESENT: ascites, distended, normal bowel sounds, soft. ABS ENT: tenderness Rectal exam: PRESENT: deferred Gentrourinary exam: ABSENT: indwelling catheter Extremities exam: PRESENT: +2 edema Musculoskeletal exam: PRESENT: other - Left lower leg in immobilizer. ABSENT: normal inspection Neurological exam: PRESENT: alert, awake, oriented to person, oriented to place, oriented to time, oriented to situation, CN II-XII grossly intact. ABSENT: altered Psychiatric exam: PRESENT: appropriate affect. ABSENT: agitated, anxious Focused psych exam: ABSENT: delusional, paranoid, restlessness Skin exam: PRESENT: dry - Dry scaly skin, other - Multiple tattoos. ABSENT: normal color - Chronic pigment deposition lower extremities Results Laboratory Results: 07/03/20 12:28 07/03/20 12:28 07/03/20 07/03/20 07/03/20 12: 12: 15:06 WBC 3.2 L RBC 5.38 Hgb 16.6 Hct 50.3 MCV 94 MCH 30.9 MCHC 33.1 RDW 15.7 H Plt Count 47 L Seg Neutrophils % 73.1 Sodium 139.3 Potassium 4.2 Chloride 100 Carbon Dioxide 39 H Anion Gap 0 L BUN 10 Creatinine 0.47 L Est GFR ( Amer) > 60 Glucose 199 H Calcium 8.5 Total Bilirubin 2.7 H AST 96 H Alkaline Phosphatase 295 H Total Protein 6.9 Albumin 3.0 L Urine Color MOOKIE Urine Appearance SLIGHTLY-CLOUDY Urine pH 5.0 Ur Specific [place] 1.025 Urine Protein 100 H Urine Glucose (UA) NEGATIVE Urine Ketones NEGATIVE Urine Blood LARGE H Urine Nitrite POSITIVE H Ur Leukocyte Esterase TRACE H Urine WBC (Auto) 8 Urine RBC (Auto) 4 07/03/20 12:20 Troponin I < 0.012 NT-Pro-B Natriuret Pep 119 Impressions: Chest X-Ray 07/03/20 12:04 IMPRESSION: 1. Pleural and parenchymal opacities in the mid and inferior aspect of the left hemithorax that likely represent a combination of pleural fluid, atelectasis and/ or in the proper clinical setting consolidation. 2. Patchy basilar predominant parenchymal opacities in the right lung - clinical correlation for signs and symptoms of volume overload is recommended. Assessment and Plan - Diagnosis (1) Acute respiratory failure with hypoxia Is this a current diagnosis for this admission?: Yes (2) Pleural effusion, left Is this a current diagnosis for this admission?: Yes (3) Pneumonia involving right lung Qualifiers: Pneumonia type: due to unspecified organism Lung location: lower lobe of lung Qualified Code(s): J18.9 - Pneumonia, unspecified organism Is this a current diagnosis for this admission?: Yes (4) Thrombocytopenia Is this a current diagnosis for this admission?: Yes (5) Leukopenia Qualifiers: Leukopenia type: unspecified Qualified Code(s): D72.819 - Decreased white blood cell count, unspecified Is this a current diagnosis for this admission?: Yes (6) Chronic hepatitis C with cirrhosis Is this a current diagnosis for this admission?: Yes (7) Hyperbilirubinemia Is this a current diagnosis for this admission?: Yes (8) Elevated transaminase level Is this a current diagnosis for this admission?: Yes (9) Ascites Qualifiers: Ascites type: other type Qualified Code(s): R18.8 - Other ascites Is this a current diagnosis for this admission?: Yes (10) Hyperglycemia due to diabetes mellitus Is this a current diagnosis for this admission?: Yes (11) Chronic primary musculoskeletal pain Is this a current diagnosis for this admission?: Yes (12) Chronic obstructive pulmonary disease, unspecified Qualifiers: COPD type: unspecified COPD Qualified Code(s): J44.9 - Chronic obstructive pulmonary disease, unspecified Is this a current diagnosis for this admission?: Yes - Plan Summary Summary: (1) Acute respiratory failure with hypoxia (2) Pleural effusion, left (3) Pneumonia involving right lung (4) Thrombocytopenia (5) Leukopenia (6) Chronic hepatitis C with cirrhosis (7) Hyperbilirubinemia (8) Elevated transaminase level (9) Ascites (10) Hyperglycemia due to diabetes mellitus (11) Chronic primary musculoskeletal pain (12) COPD 07/03/2020 Acute respiratory failure with hypoxia-due to a combination of the left pleural effusion and probable right lower lobe pneumonia. The patient is on 5 L nasal cannula currently. Should improve as these conditions improve. Continue to taper oxygen to room air if possible Left pleural effusion-most likely related to the ascites with cirrhosis from hepatitis C. Underwent thoracentesis. Laboratory studies are pending. Left lower lobe doekdofbw-chvvrelwc-hivqacto pneumonia in patient with chronic liver disease and low white blood cell count. Will cover with ceftriaxone and azithromycin and monitor closely. White count may very well spike over the next day or 2. Leukopenia-the patient does have a low white blood cell count. This is most likely due to liver disease. It does occasionally happen early with infection. We will continue to monitor as we treat the pneumonia. Thrombocytopenia-likely secondary to his chronic liver disease Chronic hepatitis C with cirrhosis-patient reports hepatitis C from tattoos. No specific treatment. This is the cause of the ascites. Hyperbilirubinemia with elevated transaminases-secondary to chronic liver disease Ascites-secondary to cirrhosis from hepatitis C. Patient is on diuretics. Consider adding Aldactone. Monitor intake and output. Since his TIPS procedure the patient states that he has not had to have paracentesis at least in 2 years. Hyperglycemia due to diabetes mellitus-patient reports that he has been getting steroid injections into his left ankle for 2 years. He did not have a history of diabetes nor does he have a family history of diabetes. Normally takes Metformin at home. He has hyperglycemia with admission glucose of 199. He states that that is normal for him. We will continue to educate and help him understand that that is not acceptable especially with risk of heart disease and kidney disease. He states that Metformin upsets his stomach. He will be on sliding scale insulin at this time. Further education during hospitalization including dietitian consult and clinical informatics educator. Chronic musculoskeletal pain-the patient has had a multitude of orthopedic surgeries. Several on his hips as well as several on his spine. He also has a 2-year-old fracture in the left ankle that has not healed correctly. He is a patient of [facility]. His reported regimen is 10 mg of methadone 4 times a day and Percocet 10/09/2024 4 times a day. I explained that he should never go above 2 g of acetaminophen with his chronic liver disease. We will use oxycodone 5 mg during his hospitalization. I will ask the staff to get records from [facility]. COPD-this is not an exacerbation of his COPD. We will have nebulizer treatments available if needed. Oxygen therapy as above. - Time Time Spent with patient: 35 or more minutes Medications reviewed and adjusted accordingly: Yes Anticipated Discharge Disposition: Home, Self Care Anticipated Discharge Timeframe: within 72 hours - Inpatient Certification Based on my medical assessment, after consideration of the patient's comorbidities, presenting symptoms, or acuity I expect that the services needed warrant INPATIENT care.: Yes I certify that my determination is in accordance with my understanding of Medicare's requirements for reasonable and necessary INPATIENT services [42 CFR 412.3e].: Yes Medical Necessity: Failure to Improve With Outpatient Therapy, Need Close Monitoring Due to Risk of Patient Decompensation, Need for Nebulizer Therapy and Monitoring of Response, Need for Pain Control, Need for IV Antibiotics, Risk of Diagnosis Which Will Require Inpatient Eval/Care/Monitoring Post Hospital Care: D/C or Transfer Summary
--- NOTE | 2020-07-03 17:23 | ADVANCED CARE ---
- Diagnosis (1) Acute respiratory failure with hypoxia Diagnosis Current: Yes (2) Pleural effusion, left Diagnosis Current: Yes (3) Pneumonia involving right lung Diagnosis Current: Yes (4) Thrombocytopenia Diagnosis Current: Yes (5) Leukopenia Diagnosis Current: Yes (6) Chronic hepatitis C with cirrhosis Diagnosis Current: Yes (7) Hyperbilirubinemia Diagnosis Current: Yes (8) Elevated transaminase level Diagnosis Current: Yes (9) Ascites Diagnosis Current: Yes (10) Hyperglycemia due to diabetes mellitus Diagnosis Current: Yes (11) Chronic primary musculoskeletal pain Diagnosis Current: Yes (12) Chronic obstructive pulmonary disease, unspecified Diagnosis Current: Yes Attendance: Discussion held at the bedside with the patient Resuscitation Status: Full Code Discussion: Reviewed resuscitation status. Reviewed CPR as well as intubation and ventilation. The patient does wish everything to be done. He has had discussions with his in the past. There is no living will at this time. With his chronic illnesses he might consider establishing a living well. At this time his choice is for full resuscitation efforts. Care Planning Goals: Further education with CODE STATUS and prognoses with his medical comorbidities Document(s) Completed: None at this time Time Spent: 18 minutes
[2020-07-03] MEDS ORDERED: (PENDING PHARMACY ID) (Metformin Hcl [Metformin Hcl Er] 500 MG Tab.Er.24h) PO SCH (18:00)
[2020-07-03] MEDS ORDERED: FUROSEMIDE 20 MG TABLET PO SCH (18:00)
--- NOTE | 2020-07-03 18:08 | RADIOLOGY REPORT (SQ) ---
EXAM DESCRIPTION: CHEST SINGLE VIEW IMAGES COMPLETED DATE/TIME: 07/03/2020 5:41 pm REASON FOR STUDY: 2 hour post thoracentesis COMPARISON: 07/03/2020 EXAM PARAMETERS: NUMBER OF VIEWS: One view. TECHNIQUE: Single frontal radiographic view of the chest acquired. RADIATION DOSE: NA LIMITATIONS: None. FINDINGS: LUNGS AND PLEURA: No pneumothorax. Residual left pleural effusion. MEDIASTINUM AND HILAR STRUCTURES: No masses. Contour normal. HEART AND VASCULAR STRUCTURES: Heart normal in size. Normal vasculature. BONES: No acute findings. HARDWARE: None in the chest. OTHER: No other significant finding. IMPRESSION: No pneumothorax status post thoracentesis. Residual left pleural effusion. TECHNICAL DOCUMENTATION: JOB ID: [id number] [employer]- All Rights Reserved Reading location - IP/workstation name: [email or web address]
[2020-07-03] MEDS: OXYCODONE HCL IR 5 MG TABLET PO SCH ×2 (20:07→20:19)
[2020-07-03] MEDS: METHADONE HCL 10 MG TABLET PO SCH (20:14)
[2020-07-04] MEDS: METHADONE HCL 10 MG TABLET PO SCH ×3 (00:32→11:51)
[2020-07-04] MEDS: OXYCODONE HCL IR 5 MG TABLET PO SCH ×3 (03:37→09:17)
[2020-07-04 05:53] LABS: ABSOLUTE EOSINOPHILS # (AUTO) 0.1 10^3/uL (0.0-0.6); ABSOLUTE LYMPHOCYTES (AUTO) 0.7 10^3/uL (0.5-4.7); ABSOLUTE MONOCYTES (AUTO) 0.4 10^3/uL (0.1-1.4); ABSOLUTE NEUT (AUTO) 2.2 10^3/uL (1.7-8.2); EOSINOPHILS % (AUTO) 3.7 % (0-6); HEMATOCRIT 46.9 % (37.9-51.0); HEMOGLOBIN 15.7 g/dL (13.5-17.0); LYMPHOCYTES % (AUTO) 20.3 % (13-45); MEAN CORPUSCULAR HEMOGLOBIN 31.4 pg (27.0-33.4); MEAN CORPUSCULAR HGB CONC 33.5 g/dL (32.0-36.0); MEAN CORPUSCULAR VOLUME 94 fl (80-97); MONOCYTES % (AUTO) 12.5 % (3-13); RED CELL DISTRIBUTION WIDTH 15.6 % (11.5-14.0); SEGMENTED NEUTROPHILS % (AUTO) 62.5 % (42-78); TOTAL CELLS COUNTED % (AUTO) 100 %; WHITE BLOOD COUNT 3.6 10^3/uL (4.0-10.5)
[2020-07-04 06:07] LABS: ALBUMIN 2.7 g/dL (3.5-5.0); ALKALINE PHOSPHATASE 213 U/L (38-126); ASPARTATE AMINO TRANSFERASE 86 U/L (17-59); BILIRUBIN,DIRECT 0.9 mg/dL (0.0-0.4); BILIRUBIN,TOTAL 2.3 mg/dL (0.2-1.3); BLOOD UREA NITROGEN 12 mg/dL (7-20); CALCIUM 8.3 mg/dL (8.4-10.2); CHLORIDE 100 mmol/L (98-107); GLUCOSE 224 mg/dL (75-110); PHOSPHORUS 3.3 mg/dL (2.5-4.5); TOTAL PROTEIN 6.1 g/dL (6.3-8.2)
[2020-07-04 06:12] LABS: CARBON DIOXIDE 35 mmol/L (22-30)
[2020-07-04 06:16] LABS: ANION GAP 3 (5-19)
[2020-07-04 06:19] LABS: PLATELET COUNT 45 10^3/uL (150-450)
[2020-07-04] MEDS: INSULIN REG, HUMAN 100 UNIT/ML 3 ML VIAL (PYX) SUBCUT SCH ×2 (09:19→11:22)
[2020-07-04] MEDS ORDERED: CEFTRIAXONE 1 GM/D5W RTU 1 GM/50 ML RTUPB IV SCH (10:00)
[2020-07-04] MEDS ORDERED: FUROSEMIDE 40 MG TABLET PO SCH (10:00)
[2020-07-04] MEDS ORDERED: SPIRONOLACTONE 25 MG TABLET PO SCH (10:00)
[2020-07-04] MEDS ORDERED: FUROSEMIDE INJ/PF 40 MG/4 ML SDV IV SCH (10:00)
[2020-07-04] MEDS ORDERED: AZITHROMYCIN 250 MG TABLET PO SCH (10:00)
[2020-07-04] MEDS ORDERED: CEFTRIAXONE SODIUM 1,000 MG in DEXTROSE 5%-WATER 50 ML IV SCH (11:00)
[2020-07-04 11:40] LABS: PATH REVIEW PATHOLOGIST REVIEWED
[2020-07-04 12:10] VITALS: BP 137/54
--- NOTE | 2020-07-04 18:44 | PDOC DISCHARGE SUMMARY ---
Impression - Admit/DC Date/PCP Admission Date/Primary Care Provider: 07/03/20 15:30 DANIELA VASQUEZ NP Discharge Date: 07/04/20 - Discharge Diagnosis (1) Acute and chronic respiratory failure with hypoxia Is this a current diagnosis for this admission?: Yes (2) Ascites Is this a current diagnosis for this admission?: Yes (3) Chronic hepatitis C with cirrhosis Is this a current diagnosis for this admission?: Yes (4) Elevated transaminase level Is this a current diagnosis for this admission?: Yes (5) Hyperbilirubinemia Is this a current diagnosis for this admission?: Yes (6) Pleural effusion, left Is this a current diagnosis for this admission?: Yes (7) Pneumonia involving right lung Is this a current diagnosis for this admission?: Yes (8) Volume overload Is this a current diagnosis for this admission?: Yes - Assessment Summary: Acute on chronic respiratory failure with hypoxia-due to a combination of the left pleural effusion, volume overload and and questionable right lower lobe pneumonia. Resolved s/p thoracentesis and with diuretic therapy. He was stable on his home 2-3 L O2 via NC on discharge. Left pleural effusion-most likely related to the ascites with cirrhosis from hepatitis C. Underwent thoracentesis. Home doses of diuretics were increased. Community-acquired pneumonia - treated with ceftriaxone and azithromycin x2 days and discharged with additional 3 days of levofloxacin. HCV cirrhosis c/b ascites - patient reports hepatitis C from tattoos. No specific treatment. This is the cause of the ascites. Patient is on diuretics, the doses of which were increased to Lasix 40 mg daily and spironolactone 100 mg daily. Since his TIPS procedure the patient states that he has not had to have paracentesis at least in 2 years. Recommend outpatient GI follow up in 1-2 weeks. Hyperbilirubinemia with elevated transaminases-secondary to chronic liver disease - Additional Information Resuscitation Status: Full Code Discharge Diet: Cardiac Discharge Activity: Activity As Tolerated, Keep Legs Elevated Referrals: SAW GATES MD [ACTIVE STAFF] - 07/06/20 2:15 pm Prescriptions: Furosemide [Lasix 40 mg Tablet] 40 mg PO QAM #30 tablet Levofloxacin [Levaquin 750 mg Tablet] 750 mg PO DAILY #3 tablet Spironolactone 100 mg PO QAM #30 tablet Home Medications: Methadone HCl 10 mg PO Q6HP PRN 10/17/17 Oxycodone HCl/Acetaminophen [Percocet 5-325 mg Tablet] 1 tab PO Q6HP PRN 0 10/17/17 Metformin HCl [Metformin HCl ER] 500 mg PO BID 07/03/20 Furosemide [Lasix 40 mg Tablet] 40 mg PO QAM #30 tablet 07/04/20 Levofloxacin [Levaquin 750 mg Tablet] 750 mg PO DAILY #3 tablet 07/04/20 Spironolactone 100 mg PO QAM #30 tablet 07/04/20 History of Present Illiness History of Present Illness: DONTAE RODRIGUEZ JR is a 55 year old male Physical Exam Vital Signs: Temp Pulse Resp BP Pulse Ox 98.0 F 79 16 137/54 H 91 L 07/04/20 12:07 07/04/20 12:07 07/04/20 12:07 07/04/20 12:07 07/04/20 12:07 Intake & Output 07/03/20 07/04/20 07/05/20 06:59 06:59 06:59 Intake Total 450 Balance 450 Weight 126.1 kg 126.1 kg Results Laboratory Results: WBC 3.6 10^3/uL (4.0-10.5) L 07/04/20 04:11 RBC 5.00 10^6/uL (4.35-5.55) 07/04/20 04:11 Hgb 15.7 g/dL (13.5-17.0) 07/04/20 04:11 Hct 46.9 % (37.9-51.0) 07/04/20 04:11 MCV 94 fl (80-97) 07/04/20 04:11 MCH 31.4 pg (27.0-33.4) 07/04/20 04:11 MCHC 33.5 g/dL (32.0-36.0) 07/04/20 04:11 RDW 15.6 % (11.5-14.0) H 07/04/20 04:11 Plt Count 45 10^3/uL (150-450) L 07/04/20 04:11 Lymph % (Auto) 20.3 % (13-45) 07/04/20 04:11 Roane % (Auto) 12.5 % (3-13) 07/04/20 04:11 Eos % (Auto) 3.7 % (0-6) 07/04/20 04:11 Baso % (Auto) 1.0 % (0-2) 07/04/20 04:11 Absolute Neuts (auto) 2.2 10^3/uL (1.7-8.2) 07/04/20 04:11 Absolute Lymphs (auto) 0.7 10^3/uL (0.5-4.7) 07/04/20 04:11 Absolute Monos (auto) 0.4 10^3/uL (0.1-1.4) 07/04/20 04:11 Absolute Eos (auto) 0.1 10^3/uL (0.0-0.6) 07/04/20 04:11 Absolute Basos (auto) 0.0 10^3/uL (0.0-0.2) 07/04/20 04:11 Seg Neutrophils % 62.5 % (42-78) 07/04/20 04:11 PT 14.6 SEC (11.4-15.4) 07/03/20 12:28 INR 1.12 07/03/20 12:28 APTT 35.4 SEC (23.5-35.8) 07/03/20 12:28 Sodium 138.0 mmol/L (137-145) 07/04/20 04:11 Potassium 4.0 mmol/L (3.6-5.0) 07/04/20 04:11 Chloride 100 mmol/L (98-107) 07/04/20 04:11 Carbon Dioxide 35 mmol/L (22-30) H 07/04/20 04:11 Anion Gap 3 (5-19) L 07/04/20 04:11 BUN 12 mg/dL (7-20) 07/04/20 04:11 Creatinine 0.58 mg/dL (0.52-1.25) 07/04/20 04:11 Est GFR ( Amer) > 60 (>60) 07/04/20 04:11 Est GFR (MDRD) Non-Af > 60 (>60) 07/04/20 04:11 Glucose 224 mg/dL (75-110) H 07/04/20 04:11 POC Glucose 181 mg/dL (70-110) H 07/04/20 11:12 Hemoglobin A1c % 7.7 % (4.7-6.0) H 07/04/20 04:18 Calcium 8.3 mg/dL (8.4-10.2) L 07/04/20 04:11 Phosphorus 3.3 mg/dL (2.5-4.5) 07/04/20 04:11 Magnesium 1.6 mg/dL (1.6-2.3) 07/04/20 04:11 Total Bilirubin 2.3 mg/dL (0.2-1.3) H 07/04/20 04:11 Direct Bilirubin 0.9 mg/dL (0.0-0.4) H 07/04/20 04:11 Neonat Total Bilirubin Not Reportable 07/04/20 04:11 Neonat Direct Bilirubin Not Reportable 07/04/20 04:11 Neonat Indirect Bili Not Reportable 07/04/20 04:11 AST 86 U/L (17-59) H 07/04/20 04:11 ALT 75 U/L (<50) H 07/04/20 04:11 Alkaline Phosphatase 213 U/L (38-126) H 07/04/20 04:11 Troponin I < 0.012 ng/mL 07/03/20 12:20 NT-Pro-B Natriuret Pep 119 pg/mL (<125) 07/03/20 12:20 Total Protein 6.1 g/dL (6.3-8.2) L 07/04/20 04:11 Albumin 2.7 g/dL (3.5-5.0) L 07/04/20 04:11 Urine Color MOOKIE 07/03/20 15:06 Urine Appearance SLIGHTLY-CLOUDY 07/03/20 15:06 Urine pH 5.0 (5.0-9.0) 07/03/20 15:06 Ur Specific Reeves 1.025 07/03/20 15:06 Urine Protein 100 mg/dL (NEGATIVE) H 07/03/20 15:06 Urine Glucose (UA) NEGATIVE mg/dL (NEGATIVE) 07/03/20 15:06 Urine Ketones NEGATIVE mg/dL (NEGATIVE) 07/03/20 15:06 Urine Blood LARGE (NEGATIVE) H 07/03/20 15:06 Urine Nitrite POSITIVE (NEGATIVE) H 07/03/20 15:06 Urine Bilirubin NEGATIVE (NEGATIVE) 07/03/20 15:06 Urine Urobilinogen 4.0 mg/dL (<2.0) H 07/03/20 15:06 Ur Leukocyte Esterase TRACE (NEGATIVE) H 07/03/20 15:06 Urine WBC (Auto) 8 /HPF 07/03/20 15:06 Urine RBC (Auto) 4 /HPF 07/03/20 15:06 Urine Bacteria (Auto) 3+ /HPF 07/03/20 15:06 Urine Mucus (Auto) MANY /LPF 07/03/20 15:06 Urine Ascorbic Acid NEGATIVE (NEGATIVE) 07/03/20 15:06 Fluid Type PLEURAL 07/03/20 15:30 Fluid Source LUNG 07/03/20 15:30 Fluid Color YELLOW 07/03/20 15:30 Fluid Appearance CLOUDY 07/03/20 15:30 Fluid Viscosity LIQUID 07/03/20 15:30 Fluid WBC 198 /uL 07/03/20 15:30 Fluid RBC 906 /uL 07/03/20 15:30 Fluid Seg Neutrophils 5 % 07/03/20 15:30 Fluid Lymphocytes 48 % 07/03/20 15:30 Fluid Monocytes 47 % 07/03/20 15:30 Fluid Eosinophils 0 % 07/03/20 15:30 Fluid Basophils 0 % 07/03/20 15:30 Anders Human Metapneumo PCR NOT DETECTED (NOT DETECT) 07/03/20 12:50 Adenovirus (PCR) NOT DETECTED (NOT DETECT) 07/03/20 12:50 B. pertussis DNA (PCR) NOT DETECTED (NOT DETECT) 07/03/20 12:50 B.parapertussis DNA PCR NOT DETECTED (NOT DETECT) 07/03/20 12:50 C. pneumoniae DNA (PCR) NOT DETECTED (NOT DETECT) 07/03/20 12:50 Coronavirus OC43 (PCR) NOT DETECTED (NOT DETECT) 07/03/20 12:50 Coronavirus HKU1 (PCR) NOT DETECTED (NOT DETECT) 07/03/20 12:50 Coronavirus 229E (PCR) NOT DETECTED (NOT DETECT) 07/03/20 12:50 Coronavirus NL63 (PCR) NOT DETECTED (NOT DETECT) 07/03/20 12:50 Influenza A (H1) PCR NOT DETECTED (NOT DETECT) 07/03/20 12:50 Influ A (H1N1/09) PCR NOT DETECTED (NOT DETECT) 07/03/20 12:50 Influenza A (H3) PCR NOT DETECTED (NOT DETECT) 07/03/20 12:50 Influenza Type A (PCR) NOT DETECTED (NOT DETECT) 07/03/20 12:50 Influenza Type B (PCR) NOT DETECTED (NOT DETECT) 07/03/20 12:50 M. pneumoniae (PCR) NOT DETECTED (NOT DETECT) 07/03/20 12:50 Parainfluenza 1 (PCR) NOT DETECTED (NOT DETECT) 07/03/20 12:50 Parainfluenza 2 (PCR) NOT DETECTED (NOT DETECT) 07/03/20 12:50 Parainfluenza 3 (PCR) NOT DETECTED (NOT DETECT) 07/03/20 12:50 Parainfluenza 4 (PCR) NOT DETECTED (NOT DETECT) 07/03/20 12:50 RSV (PCR) NOT DETECTED (NOT DETECT) 07/03/20 12:50 Entero/Rhino (PCR) NOT DETECTED (NOT DETECT) 07/03/20 12:50 SARS-CoV-2 (PCR) NOT DETECTED (NOT DETECT) 07/03/20 12:50 AFB Smear NO ACID FAST BACILLI (NO AFB SEEN) 07/03/20 15:30 Slides for Path Review PATHOLOGIST REVIEWED 07/03/20 15:30 07/03/20 12:20 Troponin I < 0.012 NT-Pro-B Natriuret Pep 119 Impressions: Chest X-Ray 07/03/20 00:00 IMPRESSION: No pneumothorax status post thoracentesis. Residual pleural effusion. Cannot entirely exclude a left pleural mass. Consider CT if clinically indicated. Chest X-Ray 07/03/20 12:04 IMPRESSION: 1. Pleural and parenchymal opacities in the mid and inferior aspect of the left hemithorax that likely represent a combination of pleural fluid, atelectasis and/ or in the proper clinical setting consolidation. 2. Patchy basilar predominant parenchymal opacities in the right lung - clinical correlation for signs and symptoms of volume overload is recommended. Thoracentesis Ultrasound 07/03/20 14:28 IMPRESSION: Successful ultrasound-guided left-sided thoracentesis. Chest X-Ray 07/03/20 17:35 IMPRESSION: No pneumothorax status post thoracentesis. Residual left pleural effusion. Stroke Is this a Stroke Patient?: No Acute Heart Failure Is this a Heart Failure Patient?: No
== END 2020-07-04 12:38 | disposition home or self-care (01) | DRG 432 ==
LOC: ER 11:51 → EH 15:30 → 4N 18:22
PROVIDERS: ADMIT Hospitalist; ATTEND Hospitalist
PROC: 0W9B3ZZ Drainage of Left Pleural Cavity, Percutaneous Approach (ICD-10-PCS; principal; 2020-07-03)
DX: K74.60 Unspecified cirrhosis of liver (principal); J96.01 Acute respiratory failure with hypoxia; J18.9 Pneumonia, unspecified organism; R18.8 Other ascites; J91.8 Pleural effusion in other conditions classified elsewhere; J44.0 Chronic obstructive pulmonary disease with (acute) lower respiratory infection; B18.2 Chronic viral hepatitis C; Z20.822 Contact with and (suspected) exposure to COVID-19; D69.59 Other secondary thrombocytopenia; M79.10 Myalgia, unspecified site; I73.9 Peripheral vascular disease, unspecified; J44.9 Chronic obstructive pulmonary disease, unspecified; M19.90 Unspecified osteoarthritis, unspecified site; D70.9 Neutropenia, unspecified; G89.29 Other chronic pain; Z79.51 Long term (current) use of inhaled steroids; E09.9 Drug or chemical induced diabetes mellitus without complications; T38.0X5A Adverse effect of glucocorticoids and synthetic analogues, initial encounter; Z79.899 Other long term (current) drug therapy; Z79.84 Long term (current) use of oral hypoglycemic drugs; Z87.891 Personal history of nicotine dependence
CPT/HCPCS: 32555; 36415; 71045; 80053; 81001; 82962; 83036; 83735; 83880; 84100; 84484; 85025; 85610; 85730; 87015; 87040; 87070; 87075; 87086; 87088; 87101; 87116; 87186; 87205; 87206; 89050; 96365; 99285; 0202U; J0456; J0696; J1815